=== PATIENT | male | born 1955 | race Caucasian/White ===

== ENCOUNTER 2016-08-20 13:25 | Inpatient (IN) | payer OTHER ==
[2016-08-20] MEDS ORDERED: SODIUM CHLORIDE 0.9% 1,000 ML IV STA (13:43)
[2016-08-20] MEDS ORDERED: RX INFO: IV CONTRAST WAS GIVEN 1 EACH MISC MISCELLANE PRN (13:46)
--- NOTE | 2016-08-20 13:56 | ED ---
Chest Pain HPI - General Chief Complaint: Chest Pain Stated Complaint: knee & chest pain Time Seen by Provider: 08/20/16 13:32 Source: patient, RN notes reviewed Mode of arrival: wheelchair Limitations: physical limitation - History of Present Illness Initial Comments: This is a 61-year-old male with a history of a left knee replacement in mid July who states he was discharged on 19 was a going through physical therapy but had onset this morning of left leg pain does seem to radiate up into his chest to his back across his shoulders. He states the pain was mild to moderate sharp in nature he denied any overt fevers chills sweats or shortness of breath however. He is on Coumadin currently he states 3 days ago his Coumadin dosage was elevated. He denies any other complaints other than that stated above MD Complaint: chest pain - Related Data Home Medications Medication Instructions Recorded Confirmed Atenolol [Tenormin] 25 mg PO DAILY 05/31/16 08/20/16 Aspirin 81 mg PO ONCE PRN 08/20/16 08/20/16 Atenolol [Tenormin] 50 mg PO DAILY 08/20/16 08/20/16 Multivitamins, Thera [Multivitamin] 1 tab PO DAILY@1200 08/20/16 08/20/16 Warfarin [Coumadin] 5 mg PO HS 08/20/16 08/20/16 Previous Rx's Medication Instructions Recorded Sennosides-Docusate Sodium 1 tab PO BID #60 tablet 07/29/16 [Senokot-S] HYDROcodone/APAP 7.5-325MG [[place] 1 - 2 tab PO Q4-6H PRN #90 tab 08/01/16 7.5-325] Allergies Allergy/AdvReac Type Severity Reaction Status Date / Time No Known Allergies Allergy Verified 08/20/16 13:55 Review of Systems ROS Statement: Those systems with pertinent positive or pertinent negative responses have been documented in the HPI. ROS Other: All systems not noted in ROS Statement are negative. EKG Findings - EKG Results: EKG: interpreted by LUANA (EKG shows a sinus bradycardia with a rate of 57 a [place] interval of 174 QRS duration 92 QT/QTC of 424/412 old inferior changes no acute ST elevation or depressions.) Past Medical History Past Medical History: Hypertension, Osteoarthritis (OA) Additional Past Medical History / Comment(s): hx hiatal hernia,torn acl lt knee History of Any Multi-Drug Resistant Organisms: None Reported Past Surgical History: Orthopedic Surgery Additional Past Surgical History / Comment(s): 2 lt knee arthroscopy,rt knee arthroscopy,rt ankle,OR 5th digit lt hand,sinus Past Anesthesia/Blood Transfusion Reactions: No Reported Reaction Additional Past Anesthesia/Blood Transfusion Reaction / Comment(s): no hx blood transfusion Past Psychological History: No Psychological Hx Reported Smoking Status: Former smoker Past Alcohol Use History: None Reported Additional Past Alcohol Use History / Comment(s): quit smoking 1993,smoked 20 yrs 1ppd Past Drug Use History: None Reported - Past Family History Father Family Medical History: Cancer Additional Family Medical History / Comment(s): prostate ca,pacemaker Mother Family Medical History: CVA/TIA General Exam - General Exam Comments Initial Comments: Is a well-developed well-nourished awake alert oriented x3 male Limitations: physical limitation General appearance: alert, in no apparent distress Head exam: Present: atraumatic, normocephalic, normal inspection Eye exam: Present: normal appearance, PERRL, EOMI. Absent: scleral icterus, conjunctival injection, periorbital swelling ENT exam: Present: normal exam, mucous membranes moist Neck exam: Present: normal inspection. Absent: tenderness, meningismus, lymphadenopathy Respiratory exam: Present: normal lung sounds bilaterally, chest wall tenderness. Absent: respiratory distress, wheezes, rales, rhonchi, stridor Cardiovascular Exam: Present: regular rate, normal rhythm, normal heart sounds. Absent: systolic murmur, diastolic murmur, rubs, gallop, clicks GI/Abdominal exam: Present: soft, normal bowel sounds. Absent: distended, tenderness, guarding, rebound, rigid Extremities exam: Present: full ROM, tenderness, normal capillary refill, calf tenderness, other (Tenderness palpation of the left calf with tenderness palpation of the proximal anterior medial thigh and left. No definite palpable cords. Stasis dermatitis bilaterally.). Absent: pedal edema, joint swelling Back exam: Present: normal inspection Neurological exam: Present: alert, oriented X3, CN II-XII intact Psychiatric exam: Present: normal affect, normal mood Skin exam: Present: warm, dry, intact, normal color. Absent: rash Course Vital Signs 08/20/16 08/20/16 13:28 14:22 Temperature 98.1 F Pulse Rate 60 54 L Respiratory 20 18 Rate Blood Pressure 129/67 137/80 O2 Sat by Pulse 100 98 Oximetry - Reevaluation(s) Reevaluation #1: 08/20/16 16:43 I did discuss the initial findings with the patient he is positive for DVT he does have a small subsegmental pulmonary embolism also. Chest Pain MDM - MDM Review the CAT scan and ultrasound reveal a small pulmonary embolism as well as DVT left lower extremity. Patient will require anticoagulation will be admitted. Patient will be admitted to the hospitalist who the case will be discussed with. Critical Care Time Critical Care Time: Yes Critical Care Time: 31 minutes of critical care time which includes initial assessment with history physical lab and ultrasound a CAT scan. Reevaluation the patient on several occasions. Discussion with patient regarding findings discussed with the admitting physician. Review of old charting. Documentation above and admission orders. Disposition Clinical Impression: Pulmonary embolism, Deep vein thrombosis (DVT), Atypical chest pain Disposition: ADMITTED IP TO THIS HOSP Condition: Stable
[2016-08-20 14:40] LABS: Basophils # (A) 0.1 k/uL (0-0.2); Basophils % (A) 2 %; CHCM 34.1; Eosinophils # (A) 0.1 k/uL (0-0.7); Eosinophils % (A) 4 %; HCT 42.3 % (39.0-53.0); HDW 2.82; HGB 13.7 gm/dL (13.0-17.5); Luc # (Auto) 0.09; Luc % (Auto) 2; Lymphocytes # (A) 1.1 k/uL (1.0-4.8); Lymphocytes % (A) 30 %; MCH 29.5 pg (25.0-35.0); MCHC 32.3 g/dL (31.0-37.0); MCV 91.3 fL (80.0-100.0); Mean Platelet Volume 7.3; Monocytes # (A) 0.3 k/uL (0-1.0); Monocytes % (A) 8 %; Neutrophils % (A) 55 %; RBC 4.64 m/uL (4.30-5.90); WBC 3.7 k/uL (3.8-10.6); WBC (Perox) 3.79
[2016-08-20 14:41] LABS: ALT 55 U/L (21-72); AST 27 U/L (17-59); Alkaline Phosphatase 77 U/L (38-126); Anion Gap 9 mmol/L; Blood Urea Nitrogen 12 mg/dL (9-20); Calcium 9.3 mg/dL (8.4-10.2); Carbon Dioxide 28 mmol/L (22-30); Chloride 101 mmol/L (98-107); Glucose 98 mg/dL (74-99); Magnesium 2.1 mg/dL (1.6-2.3); Non-African American GFR(MDRD) >60 (>60 ml/min/1.73 sqM); Potassium 4.3 mmol/L (3.5-5.1); Sodium 138 mmol/L (137-145); Total Bilirubin 0.8 mg/dL (0.2-1.3); Total Protein 6.3 g/dL (6.3-8.2)
[2016-08-20 14:50] LABS: INR 1.3 (<1.1); Partial Thromboplastin Time 26.3 sec (22.0-30.0); Prothrombin Time 12.7 sec (9.0-12.0)
[2016-08-20 14:54] LABS: Creatine Kinase 91 U/L (55-170)
[2016-08-20 15:06] LABS: Creatine Kinase MB 0.8 ng/mL (0.0-2.4); Troponin I <0.012 ng/mL (0.000-0.034)
--- NOTE | 2016-08-20 15:09 | CT ---
EXAMINATION TYPE: CT angio chest DATE OF EXAM: 08/20/2016 2:58 PM COMPARISON: NONE HISTORY: Patient complains of new onset chest pain since increase in coumadin dosage. Patient is 2 w eeks post knee surgery. CT DLP: 411.8 mGycm Automated exposure control for dose reduction was used. CONTRAST: CTA scan of the thorax is performed with IV Contrast, patient injected with 100 mL of Omnipaque 350, pulmonary embolism protocol. MIP images are created and reviewed. 3D reconstructed images are creat ed on an independent workstation and reviewed. FINDINGS: LUNGS: Exam is suboptimal as is degraded by patient respiratory motion artifact. Dependent atelectasi s is seen in both lungs. There is additional mild diffuse atelectatic change and/or edema throughout both lower lobes. There is oval nodule in the left lung base posteriorly measuring 1.9 x 1.0 cm on ax ial image 114 that warrants follow-up. No pleural effusion or pneumothorax is present bilaterally. MEDIASTINUM: There is satisfactory enhancement of the pulmonary artery and its branches, there is christensen btle filling defect in subsegmental branches of left lower lobe seen best on axial image 82 series 4 consistent with small thrombi. No lobar or segmental thrombi is clearly evident bilaterally. There a re no greater than 1 cm hilar or mediastinal lymph nodes. No pericardial effusion is seen. Cardiome ellen is present. OTHER: Small hiatal hernia is seen. There is multilevel spurring in the spine. IMPRESSION: 1. SMALL NONOCCLUSIVE SUBSEGMENTAL THROMBUS LEFT LOWER LOBE IS FELT PRESENT. NO CLINICALLY SIGNIFICAN T LOBAR OR SEGMENTAL PULMONARY EMBOLISM IS CLEARLY SEEN BILATERALLY. 2. THERE IS CARDIOMEGALY WITH SUSPECTED MILD ALVEOLAR EDEMA, CONSIDER CHF EXACERBATION. NO SUSPICIOUS FOCAL INFILTRATE IS NOTED.
--- NOTE | 2016-08-20 15:12 | US ---
EXAMINATION TYPE: US venous doppler duplex LE LT DATE OF EXAM: 08/20/2016 3:02 PM COMPARISON: NONE CLINICAL HISTORY: US. Lt leg pain s/p total knee SIDE PERFORMED: Left VESSELS IMAGED: External Iliac Vein (EIV) Common Femoral Vein Deep Femoral Vein Greater Saphenous Vein * Femoral Vein Popliteal Vein Proximal Calf Veins (* superficial vessels) Left Leg: There is satisfactory color flow, phasicity, and compressibility seen in the distal left e xternal iliac vein, common femoral vein, visualized portion of the deep femoral vein, as well as in t he proximal, mid, distal aspect of the left superficial femoral vein. Satisfactory color flow greater saphenous vein towards left groin is noted. At popliteal vein level there is incomplete compressibility with hyperexpanded hyperechoic material i n lumen and absent color flow this extends to the posterior tibial veins. Findings are consistent wit h acute deep venous thrombosis. An elongated anechoic structure at level of popliteal fossa measuring 5.4 cm is suspicious for modera te-sized popliteal cyst towards end of study. TECHNOLOGIST IMPRESSION: As Above IMPRESSION: Acute DVT in left lower extremity beginning just above the proximal popliteal vein level extending into posterior tibial veins is noted.
[2016-08-20] MEDS ORDERED: NALOXONE 0.4 MG/ML 1 ML VIAL IV PRN (16:45)
[2016-08-20] MEDS ORDERED: ASPIRIN 81 MG CHEW PO PRN (16:46)
[2016-08-20] MEDS ORDERED: HEPARIN SODIUM,PORCINE 5,000 UNIT/ML 1 ML VIAL IV STA (16:48)
[2016-08-20] MEDS: SODIUM CHLORIDE 0.9% 1,000 ML IV SCH (17:19)
[2016-08-20] MEDS: HEPARIN SODIUM,PORCINE/D5W PMX 25,000 UNIT in DEXTROSE/WATER 1 500ML.BAG IV SCH (17:24)
[2016-08-20 18:25] VITALS: BMI 30.7
[2016-08-20] MEDS: HYDROcodone/APAP 7.5-325MG 1 EACH TAB PO PRN ×2 (18:52→22:48)
[2016-08-20] MEDS ORDERED: IPRATROPIUM-ALBUTEROL 3 ML NEB INHALATION PRN (19:01)
[2016-08-20] MEDS ORDERED: IPRATROPIUM-ALBUTEROL 3 ML NEB INHALATION SCH (20:00)
[2016-08-20] MEDS: IPRATROPIUM-ALBUTEROL 3 ML NEB INHALATION SCH (20:59)
[2016-08-20] MEDS: SENNOSIDES-DOCUSATE SODIUM 1 EACH TAB PO SCH (22:09)
[2016-08-20] MEDS ORDERED: HYDROmorphone 1 MG/ML 1 ML SYRINGE IVP PRN (22:25)
[2016-08-20] MEDS ORDERED: ALPRAZolam 0.25 MG TAB PO PRN (22:25)
[2016-08-20] MEDS ORDERED: TEMAZEPAM 15 MG CAP PO PRN (22:25)
[2016-08-21] MEDS: HYDROcodone/APAP 7.5-325MG 1 EACH TAB PO PRN ×6 (03:09→23:27)
[2016-08-21] MEDS: HEPARIN SODIUM,PORCINE/D5W PMX 25,000 UNIT in DEXTROSE/WATER 1 500ML.BAG IV SCH ×2 (05:33→17:03)
[2016-08-21 06:05] LABS: Basophils # (A) 0.1 k/uL (0-0.2); Basophils % (A) 2 %; CH 30.3; CHCM 32.9; Eosinophils # (A) 0.1 k/uL (0-0.7); Eosinophils % (A) 4 %; HCT 41.7 % (39.0-53.0); HDW 2.79; HGB 13.5 gm/dL (13.0-17.5); Luc # (Auto) 0.15; Luc % (Auto) 4; Lymphocytes # (A) 1.4 k/uL (1.0-4.8); Lymphocytes % (A) 41 %; MCH 29.8 pg (25.0-35.0); MCHC 32.2 g/dL (31.0-37.0); MCV 92.4 fL (80.0-100.0); Mean Platelet Volume 6.5; Monocytes # (A) 0.2 k/uL (0-1.0); Monocytes % (A) 5 %; Neutrophils # (A) 1.6 k/uL (1.3-7.7); Neutrophils % (A) 44 %; RBC 4.52 m/uL (4.30-5.90); RDW 13.1 % (11.5-15.5); WBC 3.5 k/uL (3.8-10.6); WBC (Perox) 3.79
[2016-08-21] MEDS: PANTOPRAZOLE 40 MG TABLET PO SCH ×3 (06:27→10:01)
[2016-08-21 06:34] LABS: Anion Gap 9 mmol/L; Blood Urea Nitrogen 13 mg/dL (9-20); Calcium 9.5 mg/dL (8.4-10.2); Carbon Dioxide 28 mmol/L (22-30); Chloride 105 mmol/L (98-107); Glucose 103 mg/dL (74-99); Non-African American GFR(MDRD) >60 (>60 ml/min/1.73 sqM); Sodium 142 mmol/L (137-145)
[2016-08-21] MEDS: IPRATROPIUM-ALBUTEROL 3 ML NEB INHALATION SCH ×4 (08:50→20:32)
--- NOTE | 2016-08-21 09:38 | XR ---
EXAMINATION TYPE: XR chest 1V portable DATE OF EXAM: 08/21/2016 9:24 AM CLINICAL HISTORY: Difficulty breathing progress study. Admitted for pulmonary embolism TECHNIQUE: Single AP portable upright view of the chest is obtained. COMPARISON: CTA chest from one day earlier FINDINGS: Basilar groundglass opacities on CT are less well seen on plain film. There is no suspicio us focal airspace opacity, pleural effusion, or pneumothorax seen on plain film. Cardiac silhouette s ize is upper limits of normal. Osseous structures are intact. IMPRESSION: No suspicious acute infiltrate identified.
--- NOTE | 2016-08-21 09:57 | HP ---
DATE OF ADMISSION: 08/20/2016 CHIEF COMPLAINT: as well as shortness of breath and chest pain. HISTORY OF PRESENT ILLNESS: This 61-year-old gentleman with a past medical history of multiple medical problems has recently underwent left total knee arthroplasty. The patient went home. The patient also had a history of degenerative joint disease, hiatal hernia, history of nicotine dependence also. The patient has been followed by Dr. Lin in the outpatient setting. There is no history of fever, rigors or chills. No history of headache, loss of consciousness or seizures. The patient today apparently experienced left leg pain, which is radiating to the chest, upwards and also the patient had chest pain in the upper part radiating into the shoulders, the patient also had shortness of breath. There is no chills or fever. The patient came to [facility] and was admitted for further evaluation and treatment. On admission, chest CT was done which showed evidence of small and non- subsegmental thrombus in the left lower lobe as well as cardiomegaly with some suspected alveolar edema. The venous Doppler of the left leg showed acute DVT in the left lower leg beginning just above the proximal popliteal and ending in the posterior tibial veins. There is no history of fever, rigors or chills. There is no history of headache, loss of consciousness or seizures. PAST MEDICAL HISTORY: History of recent knee joint surgery, history of hypertension, history of DJD, hiatal hernia, history of nicotine dependence, remotely. Medications prior to admission include: Home medications include: 2. Senokot-S one tablets p.o. b.i.d. 3. Multivitamins one p.o. daily. 4. [place] 7.5, 1 to 2 tabs q.6h, p.r.n. 5. Tenormin 50 mg daily and 25 mg daily. 6. Aspirin 81 mg daily. ALLERGIES: None. FAMILY HISTORY: History of cancer, prostate cancer and pacemaker in the family. SOCIAL HISTORY: Previous history. No history of alcohol. No history of current smoking. REVIEW OF SYSTEMS: HEENT: No diminished vision or diminished hearing. CARDIOVASCULAR: S1, S2 muffled. RESPIRATORY: As mentioned earlier. GASTROINTESTINAL: No nausea or vomiting. GENITOURINARY: No dysuria. CENTRAL NERVOUS SYSTEM: No numbness, weakness. ALLERGIES/IMMUNOLOGY: No asthma or hayfever. HEMATOLOGY/ONCOLOGY: No history of anemia. MUSCULOSKELETAL: As mentioned earlier. ENDOCRINE: As mentioned earlier. CONSTITUTIONAL: As mentioned earlier. DERMATOLOGY: Negative. RHEUMATOLOGY: Negative. PSYCHIATRY: As mentioned earlier. PHYSICAL EXAMINATION: The patient is alert and oriented times three. VITAL SIGNS: Pulse 65, blood pressure 128/64, respirations 18, temperature 96 degrees, pulse ox 97% on room air. HEENT: Conjunctivae normal. NECK: No jugular venous distention. CARDIOVASCULAR: S1, S2 muffled. RESPIRATORY: Breath sounds diminished at the bases. A few scattered rhonchi and crackles. ABDOMEN: Soft, nontender. No mass palpable. LEGS: Status post left knee arthroplasty. Otherwise significant swelling in the left leg. Nervous system: Higher function as mentioned. Moves all 4 limbs. No focal motor or sensory deficits. LYMPHATICS: No lymph nodes palpable in the neck, axillae or groin. SKIN: No ulcer, rashes or bleeding. LABS: WBC 3.7, d-dimer is 5.5. PT is 12.7, INR 1.3. The Coumadin was found to be therapeutic in this patient. ASSESSMENT: 1. Deep venous thrombosis of the left leg with pulmonary embolism of the left lower lobe, acute. 2. History of recent left knee arthroplasty. 3. Hypertension. 4. History of hiatal hernia. 5. History of degenerative joint disease. 6. Remote history of nicotine dependence. RECOMMENDATIONS AND DISCUSSION: In this 61-year-old gentleman who presented with multiple complex medical issues, we will monitor the patient closely. Continue the current medications, continue symptomatic treatment. We will initiate IV heparin currently and we will seek coverage for any anticoagulant agents. Otherwise, continue monitor the patient closely with hematology/oncology and as well as orthopedic surgery. Dr. Brown will be consulted and symptomatic treatment will also be provided. Repeat labs will be ordered. Prognosis guarded because of multiple complex medical issues. Further recommendations to follow. A copy of dictation forwarded to Dr. Lin who is the primary care physician. MICHAEL
[2016-08-21] MEDS: ATENOLOL 50 MG TAB PO SCH (09:58)
[2016-08-21] MEDS: MULTIVITAMINS, THERA 1 EACH TAB PO SCH (09:59)
--- NOTE | 2016-08-21 10:41 | P.CNOR ---
History of Present Illness - HPI Consult date: 08/21/16 History of present illness: This is a pleasant 61-year-old gentleman who is a patient of Dr. Escotos. The patient is status post left total knee arthroplasty on 08/01/2017. The patient' s procedure was performed without complications or sequelae. The patient has been progressing with physical therapy postoperatively. He has been on Coumadin for anticoagulation therapy. He states on Monday his Coumadin dose was increased to 5 mg daily. On Monday he developed left leg pain behind his knee. He also experienced chest pain was radiating to his shoulders. He subsequently presented to the emergency department at [facility] or venous Doppler revealed left lower extremity DVT. Computed tomography scan of the chest was obtained as well revealing evidence of small nonocclusive subsegmental thrombus in the left lower lobe as well. The patient was subsequently admitted to Dr. Dill's service Review of Systems See [facility]. The patient denies any history of DVT. Past Medical History Past Medical History: Hypertension, Osteoarthritis (OA) Additional Past Medical History / Comment(s): hx hiatal hernia,torn acl lt knee History of Any Multi-Drug Resistant Organisms: None Reported Past Surgical History: Orthopedic Surgery Additional Past Surgical History / Comment(s): 2 lt knee arthroscopy,rt knee arthroscopy,rt ankle,OR 5th digit lt hand,sinus, left knee replacement 07/29/16 Past Anesthesia/Blood Transfusion Reactions: No Reported Reaction Additional Past Anesthesia/Blood Transfusion Reaction / Comm: no hx blood transfusion Past Psychological History: No Psychological Hx Reported Smoking Status: Former smoker Past Alcohol Use History: None Reported Additional Past Alcohol Use History / Comment(s): quit smoking 1993,smoked 20 yrs 1ppd Past Drug Use History: None Reported - Past Family History Father Family Medical History: Cancer Additional Family Medical History / Comment(s): prostate ca,pacemaker Mother Family Medical History: CVA/TIA Medications and Allergies Home Medications Medication Instructions Recorded Confirmed Type Atenolol [Tenormin] 25 mg PO DAILY 05/31/16 08/20/16 History Aspirin 81 mg PO ONCE PRN 08/20/16 08/20/16 History Atenolol [Tenormin] 50 mg PO DAILY 08/20/16 08/20/16 History Multivitamins, Thera [Multivitamin] 1 tab PO DAILY@1200 08/20/16 08/20/16 History Warfarin [Coumadin] 5 mg PO HS 08/20/16 08/20/16 History Allergies Allergy/AdvReac Type Severity Reaction Status Date / Time No Known Allergies Allergy Verified 08/20/16 13:55 Physical Examination On examination the patient does not appear in acute distress. He is alert and orientated 3. Head normal cephalic atraumatic. Neck is supple. Breathing appears nonlabored. Incision over the left knee appears well healing with no signs of erythema or drainage. He does have postoperative soft tissue swelling about the knee. Calf is soft and somewhat swollen. He has mild pain to palpation about the calf and posterior thigh. He has sustained wrist flexion, plantar flexion extensor hallux longus. There is a well-demarcated area of erythema over the medial aspect of his ankle for which she states he's been on Keflex and finished the course on Monday. Sensation and circulatory status is intact. Results The results of the patient's CT of his chest and Doppler ultrasound are reviewed - Labs Labs: Abnormal Lab Results - Last 24 Hours (Table) 08/20/16 08/21/16 08/21/16 Range/Units 23:32 05:52 05:52 WBC 3.5 L (3.8-10.6) k/uL APTT 110.8 H* (22.0-30.0) sec Glucose 103 H (74-99) mg/dL 08/21/16 Range/Units 05:52 WBC (3.8-10.6) k/uL APTT 64.4 H (22.0-30.0) sec Glucose (74-99) mg/dL H & H 08/21/16 Range/Units 05:52 Hgb 13.5 (13.0-17.5) gm/dL Hct 41.7 (39.0-53.0) % Result Diagrams: 08/21/16 05:52 08/21/16 05:52 Assessment and Plan (1) Deep vein thrombosis (DVT) Status: Acute (2) Pulmonary embolism Status: Acute (3) Status post total left knee replacement Status: Acute Plan: Continue with anti-coagulation as directed by medicine. I will notify Dr. Brown the patient's current admission. Continue with pain control. He may continue physical therapy if okay with medicine. We'll follow patient closely along with you.
[2016-08-21] MEDS: SENNOSIDES-DOCUSATE SODIUM 1 EACH TAB PO SCH ×2 (15:11→19:31)
--- NOTE | 2016-08-21 17:51 | CONS ---
DATE OF CONSULTATION: 08/21/2016 REASON FOR CONSULTATION: Pulmonary embolus. CHIEF COMPLAINT: Left knee pain. Clif is a very pleasant 61-year-old gentleman who underwent a left total knee arthroplasty on 08/01/2016, he was put on oral warfarin postoperatively; however, his INR has been subtherapeutic; however, a couple days prior to this hospital presentation, his INR was 1.2 and warfarin dose was increased; however, he presented to the hospital with worsening swelling in his left leg and he had a venous Doppler which revealed left lower extremity deep venous thrombosis just above the popliteal vein and he had a spiral CT scan of his chest which revealed nonocclusive subsegmental thrombus in the left lower lobe as well. The patient ended up being admitted to the hospital and he was started on intravenous heparin. Other than the swollen left leg and pain in the left knee, otherwise he feels fine. He denies any shortness of breath, chest pain, fever or chills. Appetite is well. No weight loss. No melena, hematochezia, hematochezia, hematuria, hemoptysis, hematemesis or epistaxis. There is no prior personal history of deep venous thrombosis or pulmonary emboli. Family history of negative for deep venous thrombosis or pulmonary emboli. His mother had strokes. His past medical history has history of hypertension, osteoarthritis. He has a hiatal hernia in the past and torn ACL of the left knee and left knee and as stated had left knee arthroplasty. He had a previous right knee arthroscopy and right ankle surgery and he had surgery on his left hand in the past. SMOKING HISTORY: He smoked for 20 years. He quit in 1991. No alcohol abuse or substance abuse. REVIEW OF SYSTEMS: As stated above in the history of present illness, otherwise negative. Medication and allergies are reviewed in his electronic medical record. On physical examination, he is alert, oriented x3. He does not appear to be in acute distress. Well-developed, well-nourished. His vital signs are temperature 97.3, afebrile, pulse is 67, regular, respiration 18, blood pressure 124/94. HEENT: Normocephalic, atraumatic. No obvious icterus. NECK: Supple. No jugular venous distention. CHEST: Equal expansion bilaterally. Lungs are clear to auscultation and percussion. HEART: Regular rate and rhythm. Abdomen is soft. No apparent organomegaly or masses. Bowel sounds present. No ascites. EXTREMITIES: Swelling in the left knee and some swelling in his left calf, feet are warm. SKIN: No bruises, ecchymosis or petechia. LYMPHATICS: No peripheral vascularity, supraclavicular lymphadenopathy. MUSCULOSKELETAL: Moving all extremities appropriately. No percussion, tenderness to external spine or sternum. LABORATORY DATA: WBC is 3.5, hemoglobin 13.5, hematocrit 41.7, platelets 240. His INR upon admission yesterday was 1.3. Sodium 138, potassium 4.3, chloride 101, CO2 is 28. BUN is 12, creatinine 0.8, LFT and alkaline phosphatase are within normal limits. IMPRESSION: Left lower extremity deep venous thrombosis and pulmonary emboli. This is a complication from recent left knee surgery as stated above. No prior personal or family history of deep venous thrombosis. Although the patient was on warfarin post operatively, but his INR has been sub therapeutic. RECOMMENDATION: 1. The patient will require 3 months of anticoagulation. 2. The patient may use one of the NOAC either Xarelto or Eliquis for a total of 3 months duration. 3. He could be switched to that either today and or tomorrow and discharged home. 4. No need for hypercoagulability work-up based on the above clinical scenario and medical history. The above was discussed in detail with the patient. I have answered all his questions to his satisfaction. Thank you very much for asking me to participate in the care of this nice gentleman.
[2016-08-21] MEDS: SODIUM CHLORIDE 0.9% 1,000 ML IV SCH (18:57)
[2016-08-21] MEDS: FUROSEMIDE 10 MG/ML 4 ML VIAL IV SCH (19:25)
[2016-08-21] MEDS: POTASSIUM CHLORIDE ER 20 MEQ TAB.ER PO SCH (19:25)
[2016-08-22] MEDS: HYDROcodone/APAP 7.5-325MG 1 EACH TAB PO PRN ×3 (03:30→12:05)
[2016-08-22] MEDS: HEPARIN SODIUM,PORCINE/D5W PMX 25,000 UNIT in DEXTROSE/WATER 1 500ML.BAG IV SCH (05:02)
[2016-08-22 07:22] LABS: Basophils # (A) 0.1 k/uL (0-0.2); Basophils % (A) 1 %; CH 30.5; CHCM 33.3; Eosinophils # (A) 0.2 k/uL (0-0.7); Eosinophils % (A) 4 %; HCT 42.9 % (39.0-53.0); HDW 2.76; HGB 13.9 gm/dL (13.0-17.5); Luc # (Auto) 0.06; Luc % (Auto) 2; Lymphocytes # (A) 1.5 k/uL (1.0-4.8); Lymphocytes % (A) 41 %; MCH 29.9 pg (25.0-35.0); MCHC 32.4 g/dL (31.0-37.0); Mean Platelet Volume 7.2; Monocytes # (A) 0.2 k/uL (0-1.0); Monocytes % (A) 5 %; Neutrophils # (A) 1.8 k/uL (1.3-7.7); Neutrophils % (A) 47 %; RBC 4.66 m/uL (4.30-5.90); RDW 13.2 % (11.5-15.5); WBC 3.8 k/uL (3.8-10.6); WBC (Perox) 3.72
[2016-08-22] MEDS: IPRATROPIUM-ALBUTEROL 3 ML NEB INHALATION SCH ×2 (07:30→12:35)
[2016-08-22 07:48] VITALS: RESP 16
[2016-08-22] MEDS: ATENOLOL 50 MG TAB PO SCH (07:56)
[2016-08-22] MEDS: POTASSIUM CHLORIDE ER 20 MEQ TAB.ER PO SCH (07:56)
--- NOTE | 2016-08-22 08:16 | P.PN ---
Subjective Principal diagnosis: Acute DVT left lower extremity. Small pulmonary embolism left lower lobe. Status post total left knee arthroplasty. This is a 61-year-old male who is status post total left knee arthroplasty. He was on Coumadin postoperatively. His dose had just been increased this past week. He is readmitted to [facility] on 08/20/2016 with an acute DVT left lower extremity and a small pulmonary embolism left lower lobe. He began having chest pain and presented to the emergency department. He is stable from orthopedic standpoint today. Her no new complaints or concerns today. Vital signs are stable. Objective - Vital Signs Vital signs: Vital Signs Temp 98.3 F 08/22/16 07:00 Pulse 76 08/22/16 07:48 Resp 16 08/22/16 07:48 BP 143/77 08/22/16 07:00 Pulse Ox 97 08/22/16 07:00 Intake & Output 08/21/16 08/22/16 08/22/16 18:59 06:59 18:59 Intake Total 906.87 922.57 Output Total 2300 Balance -1393.13 922.57 Intake: IV 498.6 Heparin Sodium,Porcine/ 318.6 D5w Pmx 25,000 unit In Dextrose/Water 1 500ml. bag @ 18 UNITS/KG/HR 42. 45 mls/hr IV .[id number] DENNIS Rx#:[id number] Sodium Chloride 0.9% 1, 180 000 ml @ 20 mls/hr IV . Q24H DENNIS Rx#:[id number] Intake, IV Titration 406.87 423.97 Amount Heparin Sodium,Porcine/ 406.87 423.97 D5w Pmx 25,000 unit In Dextrose/Water 1 500ml. bag @ 18 UNITS/KG/HR 42. 45 mls/hr IV .[id number] DENNIS Rx#:[id number] Oral 500 Output: Urine 2300 Other: Voiding Method Urinal Urinal Urinal # Voids 4 - Exam This is a pleasant 61-year-old male in no acute distress. He is alert and oriented 3. Exam of the left knee reveals his incision is healing well. There is no erythema or ecchymosis. There is osso-bu-kfitvosu swelling to the knee and lower leg. He has full foot and ankle motion without difficulty or pain. Pedal pulses +1/4. Sensation is intact to the lower extremity. - Labs CBC & Chem 7: 08/22/16 07:04 08/21/16 05:52 Labs: Abnormal Lab Results - Last 24 Hours (Table) 08/21/16 08/22/16 Range/Units 12:27 07:04 APTT 60.8 H 62.6 H (22.0-30.0) sec Assessment and Plan (1) Deep vein thrombosis (DVT) Status: Acute (2) Pulmonary embolism Status: Acute (3) Status post total left knee replacement Status: Acute Plan: The clinical findings are discussed the patient. We'll defer treatment of the DVT/PE to internal medicine. We will continue to follow.
[2016-08-22 08:31] LABS: Anion Gap 10 mmol/L; Blood Urea Nitrogen 12 mg/dL (9-20); Calcium 9.6 mg/dL (8.4-10.2); Carbon Dioxide 30 mmol/L (22-30); Chloride 102 mmol/L (98-107); Glucose 95 mg/dL (74-99); Non-African American GFR(MDRD) >60 (>60 ml/min/1.73 sqM); Potassium 4.4 mmol/L (3.5-5.1); Sodium 142 mmol/L (137-145)
[2016-08-22] MEDS: FUROSEMIDE 10 MG/ML 4 ML VIAL IV SCH (09:45)
--- NOTE | 2016-08-22 10:57 | PN ---
DATE OF SERVICE: 08/21/2016. This 61-year-old gentleman who was admitted with deep venous thrombosis of the left leg, acute onset of pulmonary embolism of the left lower lobe. The patient is on IV heparin. No chest pain or palpitation. No fever. On exam, alert and oriented x3. Pulse is 59, blood pressure 149/77, respiratory rate 17, oxygen saturation is 97% on room air. HEENT: Neck normal. CARDIAC: S1, S2, respirations reveal a few scattered rhonchi. Abdomen: Soft, nontender. Extremities: noted LABS: PTT noted , otherwise CBC within normal limits. Chest x-ray done today this morning showed no evidence of an acute infiltrate. Increased vascularity. ASSESSMENT: 1. Deep venous thrombosis of the left leg with acute pulmonary embolism left lower lobe, acute. 2. Old congestive heart failure. 3. History of recent left knee arthroplasty, total. 4. Hypertension as mentioned above. 5. Hiatal hernia. 6. History of degenerative joint disease. 7. Remote history of nicotine dependence. 8. Heparin monitoring mild leukopenia. 9. high random blood sugar. 10. Increased d-dimer. 11. RECOMMENDATIONS: This 61-year-old gentleman who presented with multiple complex medical issues. Will monitor the patient closely. Continue the current medications. Continue symptomatic treatment. Otherwise, I would also recommend a 2-D Echocardiogram Doppler and as well as a single dose of Lasix to complete the work-up, a BNP will also be requested to see . REVIEW OF SYSTEMS: CARDIOVASCULAR: As mentioned above. : No dysuria. Nervous system: No numbness or weakness. Current medications are: [place] 7. 5. DuoNeb q.i.d. and p.r.n. Xanax 0.25 t.i.d. Aspirin 81 mg. Tenormin 50 mg daily. Dilaudid 0.5 q.6 p.r.n. Multivitamin. Narcan 0.2 Protonix 40 mg. Lopressor 50 mg q.6 p.r.n. MTDD
[2016-08-22] MEDS: SENNOSIDES-DOCUSATE SODIUM 1 EACH TAB PO SCH (12:02)
[2016-08-22] MEDS: MULTIVITAMINS, THERA 1 EACH TAB PO SCH (12:02)
--- NOTE | 2016-08-22 12:20 | ECHOF ---
Referral Reason:pe MEASUREMENTS -------- HEIGHT: 193.0 cm WEIGHT: 112.5 kg BP: 144/74 RVIDd: 3.7 cm (< 3.3) IVSd: 1.2 cm (0.6 - 1.1) LVIDd: 5.3 cm (3.9 - 5.3) LVPWd: 1.2 cm (0.6 - 1.1) IVSs: 1.8 cm LVIDs: 3.5 cm LVPWs: 1.7 cm LA Diam: 3.5 cm (2.7 - 3.8) Ao Diam: 3.1 cm (2.0 - 3.7) AV Cusp: 2.2 cm (1.5 - 2.6) LA Diam: 3.5 cm (2.7 - 3.8) MV EXCURSION: 14.924 mm (> 18.000) MV EF SLOPE: 74 mm/s (70 - 150) EPSS: 1.0 cm MV E Javi: 0.76 m/s MV DecT: 260 ms MV A Javi: 0.67 m/s MV E/A Ratio: 1.15 RAP: 5.00 mmHg RVSP: 23.00 mmHg FINDINGS -------- Sinus rhythm. This was a technically good study. The left ventricular size is normal. There is borderline concentric left ventricular hypertrophy. Overall left ventricular systolic function is normal with, an EF between 55 - 60 %. The right ventricle is mild to moderately enlarged. The left atrial size is normal. The right atrium is normal in size. There is mild aortic valve sclerosis. Mild mitral annular calcification present. There is trace mitral regurgitation. Mild tricuspid regurgitation present. Right ventricular systolic pressure is normal at < 35 mmHg. The pulmonic valve was not well visualized. The aortic root size is normal. Normal inferior vena cava with normal inspiratory collapse consistent with estimated right atrial pressure of 5 mmHg. There is no pericardial effusion. CONCLUSIONS -------- 1. Sinus rhythm. 2. Mild mitral annular calcification present. 3. There is trace mitral regurgitation. 4. Mild tricuspid regurgitation present. 5. Right ventricular systolic pressure is normal at < 35 mmHg. 6. The pulmonic valve was not well visualized. 7. The aortic root size is normal. 8. There is no pericardial effusion. 9. This was a technically good study. 10. The left ventricular size is normal. 11. There is borderline concentric left ventricular hypertrophy. 12. Overall left ventricular systolic function is normal with, an EF between 55 - 60 %. 13. The right ventricle is mild to moderately enlarged. 14. The left atrial size is normal. 15. The right atrium is normal in size. 16. There is mild aortic valve sclerosis. [employer]ESSING WORKER: Edgar Tesfaye RDCS
[2016-08-22] MEDS ORDERED: RIVAROXABAN 15 MG TAB PO STA (12:36)
--- NOTE | 2016-08-22 13:38 | DS ---
DATE OF ADMISSION: 08/20/2016 DATE OF DISCHARGE: 08/22/2016 FINAL DIAGNOSES: 1. Acute deep venous thrombosis of the left leg with acute pulmonary embolus. left lower lobe, acute. 2. History recent left knee arthroplasty. 3. Hypertension. 4. Hiatal hernia. 5. History of degenerative joint disease. 6. Nicotine dependence. 7. Heparin monitoring. 8. Leukopenia. 9. Increased random. 10. Increased d-dimer discharge. DISCHARGE DISPOSITION: The patient will be discharged in stable condition with guarded prognosis. HISTORY OF PRESENT ILLNESS: This 61-year-old gentleman with a past medical history of multiple medical problems including recent surgery, was admitted with chest pain and features of acute urinary tract infection of left leg and acute pulmonary embolism, left side. The patient was treated and in turn the patient improved significantly. Patient was treated with IV heparin. Hematology/oncology was consulted and no anticoagulations were suggested. A 2-D echo showed ejection fraction 55% to 60% and normal RV systolic pressure. Vitals are stable. CARDIOVASCULAR SYSTEM: S1, S2. RESPIRATORY: Decreased breath sounds at the bases. ABDOMEN: Soft, nontender. NEURO SYSTEM: No focal deficit. DISCHARGE DISPOSITION: DIET: Cardiac. FOLLOW UP: Follow up with Dr. Brown as advised. Follow up with Dr. Lin in 2 to 3 days at the [facility]. Medications are: 1. Tenormin 50 mg p.o. daily. 2. Lasix 40 mg p.o. daily. 3. [place] 7.5 q.4 p.r.n. 4. Albuterol and Atrovent updrafts q.i.d. and p.r.n. 5. Multivitamins 1 p.o. daily. 6. K-Dur 20 mEq p.o. daily. 7. Xarelto 50 mg p.o. b.i.d. for 3 weeks and then 20 mg p.o. daily. 8. Senna 1 tablet p.o. b.i.d. p.r.n. Xarelto for at least [address] Ochoa. HAILEY CYR MD
[2016-08-22 13:46] VITALS: BP 121/61; PULSE 71; TEMP 97.5
== END 2016-08-22 14:41 | disposition home or self-care (01) | DRG 300 ==
LOC: EC 13:25 → 6SEL 16:45 → 3SUR 08-21 16:37
PROVIDERS: ADMIT Hospitalist; ATTEND Hospitalist
DX: T81.718A Complication of other artery following a procedure, not elsewhere classified, initial encounter (principal); I82.402 Acute embolism and thrombosis of unspecified deep veins of left lower extremity; I26.99 Other pulmonary embolism without acute cor pulmonale; I82.449 Acute embolism and thrombosis of unspecified tibial vein; I50.9 Heart failure, unspecified; I11.9 Hypertensive heart disease without heart failure; D72.819 Decreased white blood cell count, unspecified; F17.200 Nicotine dependence, unspecified, uncomplicated; K44.9 Diaphragmatic hernia without obstruction or gangrene; M19.90 Unspecified osteoarthritis, unspecified site; Z79.82 Long term (current) use of aspirin; Y83.8 Other surgical procedures as the cause of abnormal reaction of the patient, or of later complication, without mention of misadventure at the time of the procedure; Z96.652 Presence of left artificial knee joint
CPT/HCPCS: 36415; 71010; 71275; 80048; 80053; 82550; 82553; 83735; 83880; 84484; 85025; 85379; 85610; 85730; 93005; 93306; 94640; 96361; 96365; 96376; 99291

== ENCOUNTER → 2016-08-26 | Outpatient (CLI) | payer MEDICARE, OTHER ==
[2016-08-26 10:56] LABS: Basophils # (A) 0.1 k/uL (0-0.2); Basophils % (A) 1 %; CH 30.3; CHCM 33.5; Eosinophils # (A) 0.2 k/uL (0-0.7); Eosinophils % (A) 4 %; HCT 46.5 % (39.0-53.0); HDW 2.71; HGB 14.9 gm/dL (13.0-17.5); Luc # (Auto) 0.09; Luc % (Auto) 2; Lymphocytes # (A) 1.1 k/uL (1.0-4.8); Lymphocytes % (A) 24 %; MCH 29.1 pg (25.0-35.0); MCHC 32.1 g/dL (31.0-37.0); MCV 90.9 fL (80.0-100.0); Mean Platelet Volume 7.2; Monocytes # (A) 0.4 k/uL (0-1.0); Monocytes % (A) 9 %; Neutrophils # (A) 2.7 k/uL (1.3-7.7); Neutrophils % (A) 60 %; RBC 5.11 m/uL (4.30-5.90); RDW 12.9 % (11.5-15.5); WBC 4.5 k/uL (3.8-10.6); WBC (Perox) 4.43
[2016-08-26 11:00] LABS: Anion Gap 10 mmol/L; Blood Urea Nitrogen 15 mg/dL (9-20); Carbon Dioxide 31 mmol/L (22-30); Chloride 97 mmol/L (98-107); Glucose 90 mg/dL (74-99); Non-African American GFR(MDRD) >60 (>60 ml/min/1.73 sqM); Potassium 4.4 mmol/L (3.5-5.1); Sodium 138 mmol/L (137-145)
== END | disposition home or self-care (01) ==
LOC: LABWHC1 09:39
PROVIDERS: ATTEND Nurse Practitioner
DX: I26.99 Other pulmonary embolism without acute cor pulmonale (principal)
CPT/HCPCS: 36415; 80048; 85025

== ENCOUNTER → 2016-09-06 | Outpatient (CLI) | payer OTHER ==
--- NOTE | 2016-09-06 11:34 | US ---
EXAMINATION TYPE: US venous doppler duplex LE LT DATE OF EXAM: 09/06/2016 11:15 AM COMPARISON: 08/20/2016 CLINICAL HISTORY: LLE Knee Pain M25.562. S/P left total knee with known DVT left leg SIDE PERFORMED: Left VESSELS IMAGED: External Iliac Vein (EIV) Common Femoral Vein Deep Femoral Vein Greater Saphenous Vein * Femoral Vein Popliteal Vein Small Saphenous Vein * Proximal Calf Veins (* superficial vessels) Findings: Left Leg: +DVT left distal popliteal and proximal calf veins of indeterminant age/ proximal and mid popliteal vein improved from previous exam Results called to Dr Brown at time of exam IMPRESSION: 1. Persistent DVT within the left lower extremity which demonstrates mild improvement relative to the previous exam.
== END | disposition home or self-care (01) ==
LOC: RADUSWWP 10:58
PROVIDERS: ATTEND Orthopaedic Surgery
DX: I82.432 Acute embolism and thrombosis of left popliteal vein (principal); I82.4Y2 Acute embolism and thrombosis of unspecified deep veins of left proximal lower extremity; Z96.652 Presence of left artificial knee joint

== ENCOUNTER 2016-09-22 22:34 | Emergency (ER) | payer MEDICARE, OTHER ==
[2016-09-22 22:44] VITALS: TEMP 97.7
[2016-09-22] MEDS ORDERED: SODIUM CHLORIDE 0.9% 1,000 ML IV ONE (23:41)
[2016-09-22] MEDS ORDERED: ONDANSETRON 4 MG/2 ML VIAL IVP STA (23:41)
[2016-09-22] MEDS ORDERED: HYDROmorphone 1 MG/ML 1 ML SYRINGE IVP STA (23:42)
--- NOTE | 2016-09-23 | ED ---
Male Urogenital HPI - General Chief complaint: Urogenital Stated complaint: Blood in Urine Time Seen by Provider: 09/22/16 23:00 Source: patient, RN notes reviewed Mode of arrival: ambulatory Limitations: no limitations - History of Present Illness Initial comments: Patient is 61-year-old male presents to the emergency room for evaluation of hematuria. Patient states ever since he had his knee replacement surgery back in July he's been having on and off sharp pain in his left flank and left lower quadrant. Patient states a few hours ago began having increasing pain in his left lower quadrant along with nausea. Patient states he went to urinate and noticed bright red blood in his urine. Patient states this never happened to him before. Patient does state he has a history of kidney stones and this does feel similar to kidney stones. Patient also states he's been on Xarelto for the past 30 days due to a DVT from his knee replacement. Patient states currently having 4 out of 10 constant pain in his left flank and left lower quadrant. Patient denies any pain or burning during urination or trouble urinating. Patient has chest pain, shortness of breath, fevers, chills, vomiting. Patient states he still feeling nauseous. Patient denies any other specific complaints at this time. - Related Data Home Medications Medication Instructions Recorded Confirmed Atenolol [Tenormin] 50 mg PO DAILY 08/20/16 09/22/16 Multivitamins, Thera [Multivitamin] 1 tab PO DAILY@1200 08/20/16 09/22/16 Sennosides-Docusate Sodium 1 tab PO BID PRN 09/22/16 09/22/16 [Senokot-S] Previous Rx's Medication Instructions Recorded HYDROcodone/APAP 7.5-325MG [[place] 1 - 2 tab PO Q4-6H PRN #90 tab 08/01/16 7.5-325] Furosemide [Lasix] 40 mg PO DAILY #30 tablet 08/22/16 Potassium Chloride ER [K-Dur 20] 20 meq PO DAILY #30 tab.er.prt 08/22/16 Rivaroxaban [Xarelto] 20 mg PO DAILY #30 tab 08/22/16 Ondansetron Odt [Zofran Odt] 4 mg PO Q8HR PRN #12 tab 09/23/16 Tamsulosin HCl [Flomax] 0.4 mg PO DAILY #10 cap.er.24h 09/23/16 Allergies Allergy/AdvReac Type Severity Reaction Status Date / Time No Known Allergies Allergy Verified 09/22/16 23:03 Review of Systems ROS Statement: Those systems with pertinent positive or pertinent negative responses have been documented in the HPI. ROS Other: All systems not noted in ROS Statement are negative. Past Medical History Past Medical History: Deep Vein Thrombosis (DVT), Hypertension, Osteoarthritis ( OA) Additional Past Medical History / Comment(s): hx hiatal hernia,torn acl lt knee History of Any Multi-Drug Resistant Organisms: None Reported Past Surgical History: Orthopedic Surgery Additional Past Surgical History / Comment(s): 2 lt knee arthroscopy,rt knee arthroscopy,rt ankle,OR 5th digit lt hand,sinus, left knee replacement 07/29/16 Past Anesthesia/Blood Transfusion Reactions: No Reported Reaction Additional Past Anesthesia/Blood Transfusion Reaction / Comment(s): no hx blood transfusion Past Psychological History: No Psychological Hx Reported Smoking Status: Former smoker Past Alcohol Use History: None Reported Additional Past Alcohol Use History / Comment(s): quit smoking 1993,smoked 20 yrs 1ppd Past Drug Use History: None Reported - Past Family History Father Family Medical History: Cancer Additional Family Medical History / Comment(s): prostate ca,pacemaker Mother Family Medical History: CVA/TIA General Exam - General Exam Comments Initial Comments: Sitting in exam room, no acute distress. Limitations: no limitations General appearance: alert, in no apparent distress Head exam: Present: atraumatic, normocephalic, normal inspection Eye exam: Present: normal appearance ENT exam: Present: normal exam Neck exam: Present: normal inspection Respiratory exam: Present: normal lung sounds bilaterally. Absent: respiratory distress Cardiovascular Exam: Present: regular rate, normal rhythm, normal heart sounds GI/Abdominal exam: Present: soft, tenderness (LLQ), normal bowel sounds. Absent : distended, guarding, rebound, rigid Extremities exam: Present: normal inspection Back exam: Present: normal inspection, CVA tenderness (L). Absent: CVA tenderness (R) Neurological exam: Present: alert, oriented X3, CN II-XII intact, normal gait Psychiatric exam: Present: normal affect, normal mood Skin exam: Present: warm, dry, intact, normal color. Absent: rash Course Vital Signs 09/22/16 09/23/16 22:41 01:43 Temperature 97.7 F Pulse Rate 89 75 Respiratory 20 18 Rate Blood Pressure 177/79 138/74 O2 Sat by Pulse 99 97 Oximetry Medical Decision Making - Medical Decision Making Patient is a 61-year-old male presents emergency room for evaluation of left- sided flank pain and hematuria. Patient states he's feeling better after medications given. CT abdomen/pelvis significant for stone in right ureter. Patient denies any pain in the right side. Patient states his pain is starting to subside on the left side. Patient states he urinated again and there is not as much blood in his urine this time. Patient states he has pain medications at home. Will send patient home with Flomax and Zofran and advised to follow- up with urologist. Patient states he understands everything that was discussed with him. Return parameters discussed. Case discussed with Dr. Suárez. - Lab Data Result diagrams: 09/23/16 00:25 09/23/16 00:25 Lab Results 09/23/16 09/23/16 09/23/16 Range/Units 00:25 00:25 00:25 WBC 5.0 (3.8-10.6) k/uL RBC 4.83 (4.30-5.90) m/uL Hgb 14.4 (13.0-17.5) gm/dL Hct 42.6 (39.0-53.0) % MCV 88.3 (80.0-100.0) fL MCH 29.8 (25.0-35.0) pg MCHC 33.7 (31.0-37.0) g/dL RDW 12.7 (11.5-15.5) % Plt Count 196 (150-450) k/uL Neutrophils % 67 % Lymphocytes % 22 % Monocytes % 7 % Eosinophils % 2 % Basophils % 1 % Neutrophils # 3.4 (1.3-7.7) k/uL Lymphocytes # 1.1 (1.0-4.8) k/uL Monocytes # 0.3 (0-1.0) k/uL Eosinophils # 0.1 (0-0.7) k/uL Basophils # 0.0 (0-0.2) k/uL Sodium 144 (137-145) mmol/L Potassium 3.9 (3.5-5.1) mmol/L Chloride 103 (98-107) mmol/L Carbon Dioxide 29 (22-30) mmol/L Anion Gap 12 mmol/L BUN 14 (9-20) mg/dL Creatinine 0.90 (0.66-1.25) mg/dL Est GFR (MDRD) Af Amer >60 (>60 ml/min/1.73 sqM) Est GFR (MDRD) Non-Af >60 (>60 ml/min/1.73 sqM) Glucose 103 H (74-99) mg/dL Calcium 9.5 (8.4-10.2) mg/dL Total Bilirubin 0.7 (0.2-1.3) mg/dL AST 22 (17-59) U/L ALT 38 (21-72) U/L Alkaline Phosphatase 86 (38-126) U/L Total Protein 6.8 (6.3-8.2) g/dL Albumin 4.2 (3.5-5.0) g/dL Urine Color Red Urine Appearance Clear (Clear) Urine pH 7.5 (5.0-8.0) Ur Specific [place] 1.014 (1.001-1.035) Urine Protein 1+ H (Negative) Urine Glucose (UA) Negative (Negative) Urine Ketones Negative (Negative) Urine Blood Large H (Negative) Urine Nitrate Negative (Negative) Urine Bilirubin Negative (Negative) Urine Urobilinogen <2.0 (<2.0) mg/dL Ur Leukocyte Esterase Trace H (Negative) Urine RBC >182 H (0-5) /hpf - Radiology Data Radiology results: report reviewed, image reviewed Disposition Clinical Impression: Flank pain, Hematuria, Ureteral stone Disposition: HOME SELF-CARE Condition: Good Instructions: Flank Pain (ED), Ureteral Stones (ED) Additional Instructions: Drink plenty of water. Take at home pain medications as needed. Take prescribed medications as directed. Please follow up with primary care provider or urologist in 24-48 hours. If any new symptom arises, symptoms worsen or fever develops, return to ER as soon as possible. Prescriptions: Ondansetron Odt [Zofran Odt] 4 mg PO Q8HR PRN #12 tab PRN Reason: Nausea Tamsulosin HCl [Flomax] 0.4 mg PO DAILY #10 cap.er.24h Referrals: None,Stated [Primary Care Provider] - 1-2 days Kevin Osman MD [STAFF PHYSICIAN] - 1-2 days Time of Disposition: 02:00
[2016-09-23 00:45] LABS: Basophils % (A) 1 %; CH 31.1; CHCM 35.3; Eosinophils # (A) 0.1 k/uL (0-0.7); Eosinophils % (A) 2 %; HCT 42.6 % (39.0-53.0); HDW 2.86; HGB 14.4 gm/dL (13.0-17.5); Luc # (Auto) 0.08; Luc % (Auto) 2; Lymphocytes # (A) 1.1 k/uL (1.0-4.8); Lymphocytes % (A) 22 %; MCH 29.8 pg (25.0-35.0); MCHC 33.7 g/dL (31.0-37.0); MCV 88.3 fL (80.0-100.0); Mean Platelet Volume 7.2; Monocytes # (A) 0.3 k/uL (0-1.0); Monocytes % (A) 7 %; Neutrophils # (A) 3.4 k/uL (1.3-7.7); Neutrophils % (A) 67 %; RBC 4.83 m/uL (4.30-5.90); RDW 12.7 % (11.5-15.5); WBC (Perox) 4.77
--- NOTE | 2016-09-23 00:52 | XR ---
EXAMINATION TYPE: XR KUB DATE OF EXAM: 09/23/2016 12:47 AM COMPARISON: NONE HISTORY: Abdominal pain TECHNIQUE: 2 views FINDINGS: Bowel gas pattern is normal. There is no sign of intestinal obstruction or pneumoperitoneum . Fecal pattern is normal. Lung bases are clear. There are no pathologic calcifications over the kidn eys. There is no evidence of a mass. IMPRESSION: Nonacute abdomen.
[2016-09-23 00:57] LABS: Appearance,Urine Clear (Clear); Bilirubin,Urine Negative (Negative); Glucose,Urine (UA) Negative (Negative); Ketones,Urine Negative (Negative); Leukocyte Esterase,Urine Trace (Negative); Nitrite,Urine Negative (Negative); PH, Urine 7.5 (5.0-8.0); Particle Count 3187; Protein,Urine 1+ (Negative); RBC,Urine >182 /hpf (0-5); Specific Gravity,Urine 1.014 (1.001-1.035); UA Billing (MACRO vs. MICRO) MICRO; Urobilinogen,Urine <2.0 mg/dL (<2.0)
[2016-09-23 01:08] LABS: ALT 38 U/L (21-72); AST 22 U/L (17-59); Alkaline Phosphatase 86 U/L (38-126); Anion Gap 12 mmol/L; Blood Urea Nitrogen 14 mg/dL (9-20); Calcium 9.5 mg/dL (8.4-10.2); Carbon Dioxide 29 mmol/L (22-30); Chloride 103 mmol/L (98-107); Glucose 103 mg/dL (74-99); Non-African American GFR(MDRD) >60 (>60 ml/min/1.73 sqM); Potassium 3.9 mmol/L (3.5-5.1); Sodium 144 mmol/L (137-145); Total Bilirubin 0.7 mg/dL (0.2-1.3); Total Protein 6.8 g/dL (6.3-8.2)
[2016-09-23 01:44] VITALS: BP 138/74; PULSE 75; RESP 18
--- NOTE | 2016-09-23 01:53 | CT ---
EXAMINATION TYPE: CT abdomen pelvis wo con DATE OF EXAM: 09/23/2016 1:37 AM COMPARISON: NONE HISTORY: Left sided abdominal pain; gross hematuria CT DLP: 766.10 mGycm Automated exposure control for dose reduction was used. TECHNIQUE: Helical acquisition of images was performed from the lung bases through the pelvis. FINDINGS: There is mild subsegmental atelectasis at the lung bases. There is a small hiatal hernia. There is no pleural effusion. Liver spleen pancreas gallbladder appear normal. Bile ducts are not dilated. There is no adrenal mass . There is a 2 cm cortical cyst on the upper pole left kidney. There is mild ectasia of the proximal right ureter with a 4 mm calculus in the proximal right ureter. There is no evidence of obstruction o n the left side. Left ureter is not dilated. Appendix appears normal. I see no intestinal wall thickening. There are no dilated loops. There is no ascites. There is no bony destructive process. Bladder distends smoothly. There is no sign of a pelv ic mass. There is no evidence of a calculus within the kidneys. Abdominal aorta is atheromatous. Ther e is no retroperitoneal adenopathy. IMPRESSION: THERE IS A SMALL STONE IN THE PROXIMAL RIGHT URETER WITH VERY MINIMAL RIGHT-SIDED HYDRONEPHROSIS. NO EVIDENCE OF OBSTRUCTION ON THE LEFT SIDE. SMALL LEFT RENAL CYST. The calculus is on the opposite side of the symptoms according to the history.
[2016-09-23] MEDS ORDERED: TAMSULOSIN 0.4 MG CAP.ER.24H PO STA (01:55)
== END 2016-09-23 02:09 | disposition home or self-care (01) ==
LOC: EC 22:34
DX: N20.1 Calculus of ureter (principal); I10 Essential (primary) hypertension; Z79.899 Other long term (current) drug therapy; Z79.01 Long term (current) use of anticoagulants; Z87.891 Personal history of nicotine dependence; Z87.442 Personal history of urinary calculi
CPT/HCPCS: 99284; 96374; 96375; 96361; 36415; 80053; 85025; 81001; 74000; 74176; J2405; J1170

== ENCOUNTER → 2016-10-10 | Outpatient (CLI) | payer OTHER ==
--- NOTE | 2016-10-11 09:58 | XR ---
EXAMINATION TYPE: XR KUB DATE OF EXAM: 10/10/2016 4:19 PM COMPARISON: 09/23/2016 HISTORY: Right-sided flank pain TECHNIQUE: One view abdominal series FINDINGS: The osseous structures are intact. The bowel gas pattern is nonspecific. Extensive retained fecal de bris throughout the colon. There is a tiny 2 mm calcification adjacent to the transverse process of L3 on the right. Arthropathy of the hips noted. IMPRESSION: 1. Nonspecific abdomen. There is a tiny 2 mm calcification adjacent to L3 right transverse process w hich may represent a proximal ureteral stone noted by CAT scan.
== END ==
LOC: RADXRMAIN 16:03
PROVIDERS: ATTEND Urology
DX: N20.1 Calculus of ureter (principal)
CPT/HCPCS: 74000

== ENCOUNTER → 2016-11-01 | Outpatient (CLI) | payer OTHER ==
--- NOTE | 2016-11-01 12:52 | XR ---
EXAMINATION TYPE: XR KUB DATE OF EXAM: 11/01/2016 12:44 PM COMPARISON: 10/10/2016, 09/23/2016 HISTORY: Right-sided abdominal pain TECHNIQUE: One view abdominal series FINDINGS: The osseous structures are intact. Diffuse osteopenia noted. There is air throughout large and small bowel loops are nonspecific pattern with extensive retained debris along the left colon. Degenerative change of the spine. Arthropathy of the hips.. IMPRESSION: 1. No definite calcification seen on today's exam.
== END ==
LOC: RADXRMAIN 12:19
PROVIDERS: ATTEND Urology
DX: N20.1 Calculus of ureter (principal)
CPT/HCPCS: 74000

== ENCOUNTER 2016-11-22 11:28 | Emergency (ER) | payer MEDICARE, OTHER ==
[2016-11-22 11:49] VITALS: RESP 18
[2016-11-22] MEDS ORDERED: DICYCLOMINE 10 MG/ML 2 ML AMP IM STA (12:50)
[2016-11-22] MEDS ORDERED: SODIUM CHLORIDE 0.9% 1,000 ML IV STA (12:50)
[2016-11-22] MEDS ORDERED: ONDANSETRON 4 MG/2 ML VIAL IVP STA (12:50)
--- NOTE | 2016-11-22 12:54 | ED ---
General Adult HPI - General Chief complaint: Back Pain/Injury Stated complaint: blood in urine Time Seen by Provider: 11/22/16 12:26 Source: patient, RN notes reviewed Mode of arrival: ambulatory Limitations: no limitations - History of Present Illness Initial comments: 61-year-old male presents emergency Department chief complaint of right lower quadrant abdominal pain. Patient states yesterday he had a meals on wheels meal that did show a pain consult. Patient's concerned that maybe caused his symptoms. Patient states had diarrhea in his right lower quadrant pain. Patient denies any nausea vomiting. Patient states the pain is moderate stabbing in nature with no radiation. Patient states he was concerned due to the pains without that he should be evaluated. Patient states he does chronically have hematuria he did see urology who did a scope and said that everything did appear to be fine. Patient states this pain is new and different anything except for so he has come to be evaluated.Patient denies any recent fever, chills, shortness of breath, chest pain, back pain, nausea vomiting, numbness or tingling, dysuria or hematuria, constipation, headaches or visual changes, or any other current symptoms. - Related Data Home Medications Medication Instructions Recorded Confirmed Multivitamins, Thera [Multivitamin 1 tab PO DAILY 08/20/16 11/22/16 (formulary)] Ascorbic Acid [Vitamin C] 1,000 mg PO DAILY 11/22/16 11/22/16 Eliquis (Unknown Dose) 1 tab PO DIRECTED 11/22/16 11/22/16 HYDROcodone/APAP 5-325MG [[place] 1 tab PO DAILY PRN 11/22/16 11/22/16 5-325] traMADol HCL [Ultram] 100 mg PO BID PRN 11/22/16 11/22/16 Previous Rx's Medication Instructions Recorded Hydrocodone/Acetaminophen [[place] 1 each PO Q6HR PRN #20 tab 11/22/16 5-325] Ketorolac [Toradol] 10 mg PO Q6HR #20 tab 11/22/16 Ondansetron Odt [Zofran ODT] 4 mg PO Q8HR PRN #20 tab 11/22/16 Tamsulosin [Flomax] 0.4 mg PO DAILY #5 cap 11/22/16 Allergies Allergy/AdvReac Type Severity Reaction Status Date / Time No Known Allergies Allergy Verified 11/22/16 11:49 Review of Systems ROS Statement: Those systems with pertinent positive or pertinent negative responses have been documented in the HPI. ROS Other: All systems not noted in ROS Statement are negative. Past Medical History Past Medical History: Deep Vein Thrombosis (DVT), Hypertension, Osteoarthritis ( OA) Additional Past Medical History / Comment(s): hx hiatal hernia,torn acl lt knee , KIDNEY STONES History of Any Multi-Drug Resistant Organisms: None Reported Past Surgical History: Orthopedic Surgery Additional Past Surgical History / Comment(s): 2 lt knee arthroscopy,rt knee arthroscopy,rt ankle,OR 5th digit lt hand,sinus, left knee replacement 07/29/16 Past Anesthesia/Blood Transfusion Reactions: No Reported Reaction Additional Past Anesthesia/Blood Transfusion Reaction / Comment(s): no hx blood transfusion Past Psychological History: No Psychological Hx Reported Smoking Status: Former smoker Past Alcohol Use History: None Reported Additional Past Alcohol Use History / Comment(s): quit smoking 1993,smoked 20 yrs 1ppd Past Drug Use History: None Reported - Past Family History Father Family Medical History: Cancer Additional Family Medical History / Comment(s): prostate ca,pacemaker Mother Family Medical History: CVA/TIA General Exam - General Exam Comments Initial Comments: General: The patient is awake and alert, in no distress, and does not appear acutely ill. Eye: Pupils are equal, round and reactive to light, extra-ocular movements are intact; there is normal conjunctiva bilaterally. No signs of icterus. Ears, nose, mouth and throat: There are moist mucous membranes and no oral lesions. Neck: The neck is supple, there is no tenderness . Cardiovascular: There is a regular rate and rhythm. No murmur, rub or gallop is appreciated. Respiratory: Lungs are clear to auscultation, respirations are non-labored, breath sounds are equal. No wheezes, stridor, rales, or rhonchi. Gastrointestinal: Soft, non-distended, right lower quadrant tenderness of the abdomen without masses or organomegaly noted. There is no rebound or guarding present. No CVA tenderness. Bowel sounds are unremarkable. Back: There is no tenderness to palpation in the midline. There is no obvious deformity. No rashes noted. Musculoskeletal: Normal ROM, no tenderness, There is no pedal edema. There is no calf tenderness or swelling. Sensation intact. Pulses equal bilaterally 2+. Neurological: CN II-XII intact, There are no obvious motor or sensory deficits. Coordination appears grossly intact. Speech is normal. Skin: Skin is warm and dry and no rashes or lesions are noted. Psychiatric: Cooperative, appropriate mood & affect, normal judgment. Limitations: no limitations Course Vital Signs 11/22/16 11:44 Temperature 97.9 F Pulse Rate 77 Respiratory 18 Rate Blood Pressure 156/72 O2 Sat by Pulse 99 Oximetry Medical Decision Making - Medical Decision Making 61-year-old male presents emergency Department chief complaint of abdominal pain and diarrhea. The patient does appear to have a 3 mm calculus. This time we discussed follow-up with urology. We discussed other medications. We discussed return parameters and follow-up. Patient stated he understood all questions were answered. He will be discharged home. - Lab Data Result diagrams: 11/22/16 12:57 11/22/16 12:57 Lab Results 11/22/16 11/22/16 11/22/16 Range/Units 12:57 12:57 13:08 WBC 7.6 (3.8-10.6) k/uL RBC 4.53 (4.30-5.90) m/uL Hgb 14.2 (13.0-17.5) gm/dL Hct 40.9 (39.0-53.0) % MCV 90.3 (80.0-100.0) fL MCH 31.4 (25.0-35.0) pg MCHC 34.8 (31.0-37.0) g/dL RDW 13.0 (11.5-15.5) % Plt Count 194 (150-450) k/uL Neutrophils % 81 % Lymphocytes % 12 % Monocytes % 5 % Eosinophils % 1 % Basophils % 1 % Neutrophils # 6.1 (1.3-7.7) k/uL Lymphocytes # 0.9 L (1.0-4.8) k/uL Monocytes # 0.4 (0-1.0) k/uL Eosinophils # 0.1 (0-0.7) k/uL Basophils # 0.0 (0-0.2) k/uL Sodium 139 (137-145) mmol/L Potassium 4.5 (3.5-5.1) mmol/L Chloride 104 (98-107) mmol/L Carbon Dioxide 22 (22-30) mmol/L Anion Gap 13 mmol/L BUN 13 (9-20) mg/dL Creatinine 0.74 (0.66-1.25) mg/dL Est GFR (MDRD) Af Amer >60 (>60 ml/min/1.73 sqM) Est GFR (MDRD) Non-Af >60 (>60 ml/min/1.73 sqM) Glucose 96 (74-99) mg/dL Calcium 9.7 (8.4-10.2) mg/dL Total Bilirubin 1.6 H (0.2-1.3) mg/dL AST 15 L (17-59) U/L ALT 22 (21-72) U/L Alkaline Phosphatase 65 (38-126) U/L Total Protein 7.0 (6.3-8.2) g/dL Albumin 4.4 (3.5-5.0) g/dL Amylase 46 (30-110) U/L Lipase 66 (23-300) U/L Urine Color Light Red Urine Appearance Cloudy (Clear) Urine pH 6.5 (5.0-8.0) Ur Specific [place] 1.012 (1.001-1.035) Urine Protein 1+ H (Negative) Urine Glucose (UA) Negative (Negative) Urine Ketones 1+ H (Negative) Urine Blood Large H (Negative) Urine Nitrite Negative (Negative) Urine Bilirubin Negative (Negative) Urine Urobilinogen <2.0 (<2.0) mg/dL Ur Leukocyte Esterase Negative (Negative) Urine RBC >182 H (0-5) /hpf Urine WBC 39 H (0-5) /hpf Urine Bacteria Rare H (None) /hpf Urine Mucus Rare H (None) /hpf - Radiology Data Radiology results: report reviewed, image reviewed Disposition Clinical Impression: Right ureteral calculus Disposition: HOME SELF-CARE Condition: Stable Instructions: Ureteral Stones (ED) Additional Instructions: Please use medication as discussed. Please follow up with family doctor if symptoms have not improved over the next two days. Please return to the emergency room if your symptoms increase or worsen or for any other concerns. Prescriptions: Hydrocodone/Acetaminophen [[place] 5-325] 1 each PO Q6HR PRN #20 tab PRN Reason: Pain Ketorolac [Toradol] 10 mg PO Q6HR #20 tab Ondansetron Odt [Zofran ODT] 4 mg PO Q8HR PRN #20 tab PRN Reason: Nausea Tamsulosin [Flomax] 0.4 mg PO DAILY #5 cap Referrals: None,Stated [Primary Care Provider] - 1-2 days Daniel Roman MD [STAFF PHYSICIAN] - 1-2 days Time of Disposition: 14:04
[2016-11-22 13:12] LABS: Basophils % (A) 1 %; CH 31.6; CHCM 35.1; Eosinophils # (A) 0.1 k/uL (0-0.7); Eosinophils % (A) 1 %; HCT 40.9 % (39.0-53.0); HDW 2.83; HGB 14.2 gm/dL (13.0-17.5); Luc # (Auto) 0.09; Luc % (Auto) 1; Lymphocytes # (A) 0.9 k/uL (1.0-4.8); Lymphocytes % (A) 12 %; MCH 31.4 pg (25.0-35.0); MCHC 34.8 g/dL (31.0-37.0); MCV 90.3 fL (80.0-100.0); Mean Platelet Volume 6.9; Monocytes # (A) 0.4 k/uL (0-1.0); Monocytes % (A) 5 %; Neutrophils # (A) 6.1 k/uL (1.3-7.7); Neutrophils % (A) 81 %; RBC 4.53 m/uL (4.30-5.90); WBC 7.6 k/uL (3.8-10.6)
[2016-11-22 13:22] LABS: ALT 22 U/L (21-72); AST 15 U/L (17-59); Alkaline Phosphatase 65 U/L (38-126); Amylase 46 U/L (30-110); Anion Gap 13 mmol/L; Blood Urea Nitrogen 13 mg/dL (9-20); Calcium 9.7 mg/dL (8.4-10.2); Carbon Dioxide 22 mmol/L (22-30); Chloride 104 mmol/L (98-107); Glucose 96 mg/dL (74-99); Non-African American GFR(MDRD) >60 (>60 ml/min/1.73 sqM); Potassium 4.5 mmol/L (3.5-5.1); Sodium 139 mmol/L (137-145); Total Bilirubin 1.6 mg/dL (0.2-1.3)
--- NOTE | 2016-11-22 13:23 | CT ---
EXAMINATION TYPE: CT abdomen pelvis wo con DATE OF EXAM: 11/22/2016 1:14 PM COMPARISON: NONE HISTORY: Hematuria with back and Rt flank pain radiating to Rt groin CT DLP: 1209 mGycm FINDINGS: LUNG BASES: No evidence for nodule. No evidence for infiltrate. Mild basilar compressive atelectasis. Small sliding-type hiatal hernia. LIVER/GB: The gallbladder is unremarkable. No space-occupying hepatic lesion. PANCREAS: No pancreatic mass identified. No inflammatory process seen. SPLEEN: No evidence for splenomegaly. No intrasplenic lesions seen. ADRENALS: No adrenal nodules identified. No evidence for thickening. KIDNEYS: 3 mm right ureteral calculus is situated at the level of the pelvic inlet results in mild-to -moderate right-sided hydroureteronephrosis. Mild right renal edema. No additional calculi appreciate d. Nonspecific hypoattenuating left renal lesion measures 1.8 cm. BOWEL: Appendix has a normal appearance. No evidence of bowel obstruction. No inflammatory process. Lymph nodes: No evidence for adenopathy greater than 1 cm. Abdominal aorta: Atheromatous changes seen. No evidence for aneurysm. Genital organs: No significant abnormality. Other: No significant abnormality. IMPRESSION: 3 mm right ureteral calculus is situated at the level of the pelvic inlet results in [id number] right-sided hydroureteronephrosis.
[2016-11-22 13:56] LABS: Appearance,Urine Cloudy (Clear); Bacteria,Urine Rare /hpf; Bilirubin,Urine Negative (Negative); Glucose,Urine (UA) Negative (Negative); Ketones,Urine 1+ (Negative); Leukocyte Esterase,Urine Negative (Negative); Mucus,Urine Rare /hpf; Nitrite,Urine Negative (Negative); PH, Urine 6.5 (5.0-8.0); Particle Count 18773; Protein,Urine 1+ (Negative); RBC,Urine >182 /hpf (0-5); Specific Gravity,Urine 1.012 (1.001-1.035); UA Billing (MACRO vs. MICRO) MICRO; Urobilinogen,Urine <2.0 mg/dL (<2.0); WBC,Urine 39 /hpf (0-5)
[2016-11-22] MEDS ORDERED: TAMSULOSIN 0.4 MG CAP.ER.24H PO STA (14:01)
[2016-11-22] MEDS ORDERED: traMADol 50 MG STARTER PACK 3 TAB BTL PO STA (14:01)
[2016-11-22] MEDS ORDERED: ONDANSETRON 4 MG ODT STARTER PACK 2 TAB BTL PO STA (14:01)
[2016-11-22 14:15] VITALS: BP 175/81; PULSE 73; TEMP 96.8
== END 2016-11-22 14:24 | disposition home or self-care (01) ==
LOC: EC 11:28
DX: N20.1 Calculus of ureter (principal); R19.7 Diarrhea, unspecified; Z86.718 Personal history of other venous thrombosis and embolism; Z79.01 Long term (current) use of anticoagulants; Z87.891 Personal history of nicotine dependence; Z79.899 Other long term (current) drug therapy
CPT/HCPCS: 96361 ×2; 96372 ×2; 96374 ×2; 99284 ×2; 36415; 80053; 82150; 83690; 85025; 81001; 74176; J0500; J2405; S0119

== ENCOUNTER 2017-03-25 14:46 | Emergency (ER) | payer MEDICARE, OTHER ==
[2017-03-25 15:16] VITALS: BP 136/72; PULSE 63; RESP 18; TEMP 96
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
--- NOTE | 2017-03-25 16:03 | XR ---
EXAMINATION TYPE: 3 views right ankle. 3 views right foot. DATE OF EXAM: 03/25/2017 COMPARISON: NONE HISTORY: 61-year-old male with a pain after crushing injury. FINDINGS: Right ankle: Corticated ossific densities below the medial malleolus. Some bony spurring inferior to the lateral m alleolus. There may be a small anterior tibiotalar joint effusion. Minimal marginal spurring at the t ibiotalar joint. Tiny plantar calcaneal spur. There is heterotopic ossification involving the distal Achilles tendon with a associated Achilles tendon thickening. Small plantar calcaneal spur. No acute fracture, subluxation, or dislocation. Right foot: Mild degenerative change at the first MTP joint. No acute fracture, subluxation, or dislocation seen. IMPRESSION: 1. Right ankle: Corticated bone fragment below the medial malleolus suggests sequela of remote injury . There is heterotopic ossification within the distal Achilles tendon with tendon thickening suggesti ng chronic tendinopathy. If there is focal pain related to the patient's injury localizing here, MRI can further evaluate for any potential partial tear. 2. Right foot: Mild first MTP joint osteoarthrosis. No acute osseous abnormality seen.
== END 2017-03-25 16:26 | disposition home or self-care (01) ==
LOC: EC 14:46
DX: S93.601A Unspecified sprain of right foot, initial encounter (principal); M25.571 Pain in right ankle and joints of right foot; Z96.652 Presence of left artificial knee joint; Z87.891 Personal history of nicotine dependence; Z98.890 Other specified postprocedural states; Z88.8 Allergy status to other drugs, medicaments and biological substances; X50.0XXA Overexertion from strenuous movement or load, initial encounter; Y93.89 Activity, other specified; Y99.0 Civilian activity done for income or pay; Y92.69 Other specified industrial and construction area as the place of occurrence of the external cause
CPT/HCPCS: 99283

== ENCOUNTER → 2017-04-11 | Outpatient (CLI) | payer OTHER ==
--- NOTE | 2017-04-11 23:04 | MR ---
EXAMINATION TYPE: MR foot RT wo con DATE OF EXAM: 04/11/2017 COMPARISON: NONE HISTORY: Pain and Swelling Right Foot and Ankle Standard multiplanar, multisequence MRI departmental protocol Multiplanar, multisequence images of the right foot were acquired. FINDINGS: There is increased fluid signal in the subcutaneous tissues of the forefoot. The metatarsal s are intact. I see no fracture. There is mild spurring at the first MP joint. Plantar fascia appears normal. The Achilles tendon is intact. Medial and lateral flexor tendons of the ankle appear intact. There is mild subcutaneous edema around the ankle joint and more on the medial aspect. IMPRESSION: Subcutaneous edema and soft tissue swelling. No fracture. No evidence of osteomyelitis. Minimal osteo arthritis at the first MP joint.
== END | disposition home or self-care (01) ==
LOC: RADMRIMAIN 21:00
PROVIDERS: ATTEND Emergency Medicine
DX: M19.071 Primary osteoarthritis, right ankle and foot (principal)

== ENCOUNTER 2017-09-11 10:21 | Emergency (ER) | payer MEDICARE, OTHER ==
[2017-09-11 10:40] VITALS: BP 168/86; PULSE 89; RESP 18; TEMP 99.9
[2017-09-11] MEDS ORDERED: KETOROLAC 60 MG/2 ML VIAL IM STA (10:59)
--- NOTE | 2017-09-11 11:01 | ED ---
General Adult HPI - General Chief complaint: Extremity Injury, Lower Stated complaint: RT LEG PAIN,WEAKNESS,INJURY Time Seen by Provider: 09/11/17 10:35 Source: patient, RN notes reviewed Mode of arrival: wheelchair Limitations: no limitations - History of Present Illness Initial comments: this is a 62-year-old male who presents emergency Department complaining of right lateral ankle and right lateral foot pain. Patient states she was walking on the floor when all of a sudden he had sharp pain in his ankle and ever since has been very difficult to walk. Patient states she did not twist his ankle he did not slip. Patient has not noticed any swelling or discoloration. Patient states about 2 months ago he had injured that ankle and had MRI and was told that there was nothing wrong with the foot. Patient denies any knee pain or leg pain. Patient denies any other injury at this time - Related Data Home Medications Medication Instructions Recorded Confirmed traMADol HCL [Ultram] 100 mg PO HS PRN 11/22/16 09/11/17 Apixaban [Eliquis] 5 mg PO BID 09/11/17 09/11/17 Methylsulfonylmethane [MSM] 1,000 mg PO DAILY 09/11/17 09/11/17 Multivitamins, Thera [Multivitamin 1 tab PO DAILY 09/11/17 09/11/17 (formulary)] Allergies Allergy/AdvReac Type Severity Reaction Status Date / Time albuterol AdvReac LEG SPASMS Verified 09/11/17 10:39 apixaban [From Eliquis] AdvReac Headache/Burning Verified 09/11/17 11:11 Sensation All Over rivaroxaban [From Xarelto] AdvReac Headache/Burning Verified 09/11/17 10:39 Sensation All Over Review of Systems ROS Statement: Those systems with pertinent positive or pertinent negative responses have been documented in the HPI. ROS Other: All systems not noted in ROS Statement are negative. Past Medical History Past Medical History: Deep Vein Thrombosis (DVT), Hypertension, Osteoarthritis ( OA) Additional Past Medical History / Comment(s): hx hiatal hernia,torn acl lt knee , KIDNEY STONES History of Any Multi-Drug Resistant Organisms: None Reported Past Surgical History: Joint Replacement, Orthopedic Surgery Additional Past Surgical History / Comment(s): 2 lt knee arthroscopy,rt knee arthroscopy,rt ankle took bone chip out,OR 5th digit lt hand fused bone together had pin in place-since removed.,sinus, left knee replacement 07/29/16 , deviated septum repair. Past Anesthesia/Blood Transfusion Reactions: No Reported Reaction Additional Past Anesthesia/Blood Transfusion Reaction / Comment(s): no hx blood transfusion Past Psychological History: No Psychological Hx Reported Smoking Status: Former smoker Past Alcohol Use History: None Reported Past Drug Use History: None Reported - Past Family History Father Family Medical History: Cancer Additional Family Medical History / Comment(s): prostate ca,pacemaker Mother Family Medical History: CVA/TIA General Exam - General Exam Comments Initial Comments: GENERAL Patient is well-developed and well-nourished. Patient is in mild distress. EYES Patient's pupils are equal and round. Extraocular motion is intact SKIN Unremarkable NEURO The patient is alert and oriented 3 PYSCH Patient has normal interpersonal interactions. MUSCULOSKELETAL patient has some tenderness at the base of the f fifth metatarsalas well as the lateral malleolus Limitations: no limitations Course Vital Signs 09/11/17 10:37 Temperature 99.9 F H Pulse Rate 89 Respiratory 18 Rate Blood Pressure 168/86 O2 Sat by Pulse 98 Oximetry Procedures - Orthopedic Splinting/Casting Injury #1 Side: right Lower Extremity Injury Location: short leg, ankle Medical Decision Making - Medical Decision Making right ankle and foot x-ray showed no acute abnormalities. Patient was unable to ambulate placed but the patient and ordered him some crutches. Patient states she'll [facility]. Disposition Clinical Impression: Foot sprain Disposition: HOME SELF-CARE Instructions: Foot Sprain (ED) Additional Instructions: patient is to follow-up with his orthopedic surgeon. Referrals: Lonnie Lin DO [Primary Care Provider] - 1-2 days Time of Disposition: 11:53
--- NOTE | 2017-09-11 11:52 | XR ---
EXAMINATION TYPE: XR ankle complete RT, XR foot complete RT DATE OF EXAM: 09/11/2017 CLINICAL HISTORY: Right ankle and foot pain today, walking popping injury. TECHNIQUE: Frontal, lateral and oblique images of the right ankle and foot are obtained. COMPARISON: Right foot and ankle x-ray March 25, 2017 FINDINGS: There is no acute fracture/dislocation evident in the right ankle. The ankle mortise appe ars within normal limits. There is redemonstration of large superior calcaneal spur with ossific frag ments along course of distal Achilles tendon and small inferior calcaneal spur unchanged from prior. The overlying soft tissue appears unremarkable. There is no acute fracture or dislocation evident in the right foot. Mild spurring first metatarsopha langeal joint is seen. There is flexion in the distal toes redemonstrated. Overlying soft tissue is unremarkable. IMPRESSION: There is no acute fracture or dislocation in the right ankle or foot. No significant shannon nge from prior studies.
== END 2017-09-11 13:05 | disposition home or self-care (01) ==
LOC: EC 10:21
DX: S93.601A Unspecified sprain of right foot, initial encounter (principal); M19.90 Unspecified osteoarthritis, unspecified site; Z86.718 Personal history of other venous thrombosis and embolism; Z87.891 Personal history of nicotine dependence; Z79.01 Long term (current) use of anticoagulants; Z79.899 Other long term (current) drug therapy; Z88.8 Allergy status to other drugs, medicaments and biological substances; X50.9XXA Other and unspecified overexertion or strenuous movements or postures, initial encounter; Y93.01 Activity, walking, marching and hiking
CPT/HCPCS: 73610; 73630; 99283; 29515; 96372; J1885

== ENCOUNTER → 2017-09-15 | Outpatient (CLI) | payer MEDICARE, OTHER ==
--- NOTE | 2017-09-15 14:42 | US ---
EXAMINATION TYPE: US venous doppler duplex LE BI DATE OF EXAM: 09/15/2017 1:42 PM COMPARISON: US on 05/11/2017 CLINICAL HISTORY: I82.890 Acute Embolism And Thrombosis Of Other. Pain Hx of DVT and PE patient on bl ood thinners. SIDE PERFORMED: Bilateral TECHNIQUE: The lower extremity deep venous system is examined utilizing real time linear array sonog hanny with graded compression, doppler sonography and color-flow sonography. VESSELS IMAGED: External Iliac Vein (EIV) Common Femoral Vein Deep Femoral Vein Greater Saphenous Vein * Femoral Vein Popliteal Vein Small Saphenous Vein * Proximal Calf Veins (* superficial vessels) Right Leg: Negative for DVT There is normal flow, compressibility, vascular waveforms. Left Leg: Small non occluding DVT distal popiteal with good color flow and compression, there appears to be small amount of thrombus against vessel wall. IMPRESSION: 1. Small focal nonocclusive chronic deep venous thrombosis in the left popliteal vein in the region o f prior occlusive thrombosis on the exam of 05/11/2017. 2. Right lower extremity demonstrates no sonographic evidence of deep venous thrombosis.
== END | disposition home or self-care (01) ==
LOC: RADUSWWP 12:55
PROVIDERS: ATTEND Internal Medicine Hematology & Oncology
DX: I82.532 Chronic embolism and thrombosis of left popliteal vein (principal)
CPT/HCPCS: 93970

== ENCOUNTER → 2017-12-11 | Outpatient (CLI) | payer MEDICARE, OTHER ==
--- NOTE | 2017-12-11 11:46 | US ---
EXAMINATION TYPE: US venous doppler duplex LE DATE OF EXAM: 12/11/2017 10:23 AM COMPARISON: US CLINICAL HISTORY: DVT I82.890. SIDE PERFORMED: Bilateral TECHNIQUE: The lower extremity deep venous system is examined utilizing real time linear array sonog hanny with graded compression, doppler sonography and color-flow sonography. VESSELS IMAGED: External Iliac Vein (EIV) Common Femoral Vein Deep Femoral Vein Greater Saphenous Vein * Femoral Vein Popliteal Vein Small Saphenous Vein * Proximal Calf Veins (* superficial vessels) Right Leg: Negative for DVT Left Leg: There appears to be some chronic changes in the distal popliteal v., the vein is small in caliber, but there is flow. Negative for deep venous thrombosis. IMPRESSION: No sonographic evidence of deep venous thrombosis within the bilateral lower extremities. Incidentally the left distal popliteal vein is diminutive in size.
== END ==
LOC: RADUSWWP 09:43
PROVIDERS: ATTEND Internal Medicine Hematology & Oncology
DX: I82.890 Acute embolism and thrombosis of other specified veins (principal)
CPT/HCPCS: 93970

== ENCOUNTER 2019-02-12 00:01 | Observation (INO) | payer MEDICARE, OTHER ==
[2019-02-12 01:04] LABS: Basophils % (A) 1 %; Eosinophils # (A) 0.2 k/uL (0-0.7); Eosinophils % (A) 4 %; HCT 45.3 % (39.0-53.0); HGB 15.1 gm/dL (13.0-17.5); Lymphocytes # (A) 1.5 k/uL (1.0-4.8); Lymphocytes % (A) 28 %; MCH 30.2 pg (25.0-35.0); MCHC 33.4 g/dL (31.0-37.0); MCV 90.3 fL (80.0-100.0); Mean Platelet Volume 6.9; Monocytes # (A) 0.3 k/uL (0-1.0); Monocytes % (A) 6 %; Neutrophils # (A) 3.1 k/uL (1.3-7.7); Neutrophils % (A) 59 %; Platelet Count 213 k/uL (150-450); RBC 5.02 m/uL (4.30-5.90); RDW 12.8 % (11.5-15.5); WBC 5.3 k/uL (3.8-10.6)
[2019-02-12 01:20] LABS: INR 0.9 (<1.2); Partial Thromboplastin Time 24.3 sec (22.0-30.0); Prothrombin Time 10.1 sec (9.0-12.0)
[2019-02-12 01:21] LABS: ALT 25 U/L (21-72); AST 22 U/L (17-59); African American GFR (CKD) >90 (>60 ml/min/1.73 sqM); Albumin 4.4 g/dL (3.5-5.0); Alkaline Phosphatase 77 U/L (38-126); Anion Gap 8 mmol/L; Blood Urea Nitrogen 15 mg/dL (9-20); Calcium 9.4 mg/dL (8.4-10.2); Carbon Dioxide 26 mmol/L (22-30); Chloride 107 mmol/L (98-107); Glucose 100 mg/dL (74-99); Magnesium 2.3 mg/dL (1.6-2.3); Potassium 3.9 mmol/L (3.5-5.1); Sodium 141 mmol/L (137-145); Total Bilirubin 1.2 mg/dL (0.2-1.3); Total Protein 6.9 g/dL (6.3-8.2)
--- NOTE | 2019-02-12 01:47 | XR ---
EXAM: XR Chest, 2 Views CLINICAL HISTORY: ITS.REASON XR Reason: Chest Pain TECHNIQUE: Frontal and lateral views of the chest. COMPARISON: No relevant prior studies available. FINDINGS: Lungs: No consolidation. Pleural space: No pneumothorax. Heart: No cardiomegaly. Mediastinum: Unremarkable. Bones/joints: Degenerative changes. IMPRESSION: No evidence of acute pulmonary disease
[2019-02-12] MEDS ORDERED: traMADol 50 MG TAB PO STA ×2 (02:37→02:52)
--- NOTE | 2019-02-12 03:38 | CT ---
EXAM: CT Head Without Intravenous Contrast CLINICAL HISTORY: Pain. TECHNIQUE: Axial computed tomography images of the head/brain without intravenous contrast. Coronal and sagittal reformations provided. CTDI is 45.2 mGy and DLP is 1036 mGy-cm. This CT exam was performed using one or more of the following dose reduction techniques: automated exposure control, adjustment of the mA and/or kV according to patient size, and/or use of iterative reconstruction technique. COMPARISON: No relevant prior studies available. FINDINGS: Brain: No evidence of acute infarct. No acute intracranial hemorrhage. No edema. Mild atrophy and chronic small vessel ischemic disease. No mass effect or midline shift. Ventricles: Unremarkable for age. No ventriculomegaly. Bones/joints: Unremarkable. No acute fracture. Soft tissues: Unremarkable. Sinuses: Unremarkable as visualized. No acute sinusitis. Mastoid air cells: Unremarkable as visualized. No mastoid effusion. IMPRESSION: No evidence of acute intracranial hemorrhage, skull fracture, or other acute intracranial abnormality. EXAM: CT Cervical Spine Without Intravenous Contrast CLINICAL HISTORY: Pain. TECHNIQUE: Axial computed tomography images of the cervical spine without intravenous contrast. Coronal and sagittal reformations provided. CTDI is 11.4 mGy and DLP is 359.9 mGy-cm. This CT exam was performed using one or more of the following dose reduction techniques: automated exposure control, adjustment of the mA and/or kV according to patient size, and/or use of iterative reconstruction technique. COMPARISON: No relevant prior studies available. FINDINGS: Vertebrae: No acute fracture or traumatic subluxation of the cervical spine. Craniocervical junction is intact. Multilevel degenerative changes are present. Discs/spinal canal/neural foramina: No acute findings. Degenerative changes result in varying degrees of spinal canal or neural foraminal narrowing Soft tissues: Unremarkable as visualized. IMPRESSION: 1. No acute fracture or traumatic subluxation of the cervical spine. 2. Multilevel degenerative changes of the cervical spine.
--- NOTE | 2019-02-12 03:49 | ED ---
General Adult HPI - General Source: patient, RN notes reviewed, old records reviewed Mode of arrival: wheelchair Limitations: no limitations <Mario Moeller - Last Filed: 02/12/19 03:49> <Lexis Li - Last Filed: 02/12/19 05:25> - General Chief complaint: Chest Pain Stated complaint: Chest pain,back pain Time Seen by Provider: 02/12/19 01:10 - History of Present Illness Initial comments: 63-year-old male patient passed no history of prior DVT and pulmonary embolism, not currently on any blood thinners. CDU chief complaint of chest pain. Patient reports that yesterday he began to experience some chest pain all during a dental cleaning. Describes it as a dull ache in her left parasternal region. Patient reportedly also experienced chest pain today prior to presentation to ED where he described a tightness in his chest. Patient denies any overt pain at this time. Patient presents ED to ensure he is not having up a blood clot in his lung. Patient has a secondary complaint that a large fell on his head while he is sleeping. Patient reports that he does have a brass lamp that is on his headboard. Patient reports that patient was that he was awoken with fell hitting his forehead. Denies any loss of consciousness. Denies any current headache or changes in vision. Denies other complaints at this time. Patient denies any pleuritic pain. Patient denies any shortness of breath. Systemic: Pt denies fatigue, fever/chills, rash. Pt denies weakness, night sweats, weight loss. Neuro: Pt denies headache, visual disturbances, syncope or pre-syncope. HEENT: Pt denies ocular discharge or irritation, otalgia, rhinorrhea, pharyngitis or notable lymphadenopathy. Cardiopulmonary: Pt denies SOB, heart palpitations, dyspnea on exertion. Abdominal/GI: Pt denies abdominal pain, n/v/d. : Pt denies dysuria, burning w/ urination, frequency/urgency. Denies new onset urinary or bowel incontinence. MSK: Pt denies myalgia, loss of strength or function in extremities. Neuro: Pt denies new onset weakness, paresthesias. (Mario Moeller) - Related Data Home Medications Medication Instructions Recorded Confirmed traMADol HCL [Ultram] 100 mg PO HS PRN 11/22/16 09/11/17 Apixaban [Eliquis] 5 mg PO BID 09/11/17 09/11/17 Methylsulfonylmethane [MSM] 1,000 mg PO DAILY 09/11/17 09/11/17 Multivitamins, Thera [Multivitamin 1 tab PO DAILY 09/11/17 09/11/17 (formulary)] Allergies Allergy/AdvReac Type Severity Reaction Status Date / Time albuterol AdvReac LEG SPASMS Verified 02/12/19 00:12 apixaban [From Eliquis] AdvReac Headache/Burning Verified 02/12/19 00:12 Sensation All Over rivaroxaban [From Xarelto] AdvReac Headache/Burning Verified 02/12/19 00:12 Sensation All Over Review of Systems ROS Other: All systems not noted in ROS Statement are negative. <Mario Moeller - Last Filed: 02/12/19 03:49> ROS Other: All systems not noted in ROS Statement are negative. <Lexis Li - Last Filed: 02/12/19 05:25> ROS Statement: Those systems with pertinent positive or pertinent negative responses have been documented in the HPI. Past Medical History Past Medical History: Deep Vein Thrombosis (DVT), Hypertension, Osteoarthritis (OA) Additional Past Medical History / Comment(s): hx hiatal hernia,torn acl lt knee, KIDNEY STONES History of Any Multi-Drug Resistant Organisms: None Reported Past Surgical History: Joint Replacement, Orthopedic Surgery Additional Past Surgical History / Comment(s): 2 lt knee arthroscopy,rt knee arthroscopy,rt ankle took bone chip out,OR 5th digit lt hand fused bone together had pin in place-since removed.,sinus, left knee replacement 07/29/16, deviated septum repair. Past Anesthesia/Blood Transfusion Reactions: No Reported Reaction Additional Past Anesthesia/Blood Transfusion Reaction / Comment(s): no hx blood transfusion Past Psychological History: No Psychological Hx Reported Smoking Status: Former smoker Past Alcohol Use History: None Reported Past Drug Use History: None Reported - Past Family History Father Family Medical History: Cancer Additional Family Medical History / Comment(s): prostate ca,pacemaker Mother Family Medical History: CVA/TIA <Mario Moeller - Last Filed: 02/12/19 03:49> General Exam Limitations: no limitations <Mario Moeller - Last Filed: 02/12/19 03:49> - General Exam Comments Initial Comments: Constitutional: NAD, AOX3, Pt has pleasant affect. HEENT: NC/AT, trachea midline, neck supple, no lymphadenopathy. Posterior pharynx non erythematous, without exudates. External ears appear normal, without discharge. Mucous membranes moist. Eyes PERRLA, EOM intact. There is no scleral icterus. No pallor noted. Cardiopulmonary: RRR, no murmurs, rubs or gallops, no JVD noted. Lungs CTAB in anterior and posterior heart. No peripheral edema. Abdominal exam: Abdomen soft and non-distended. Abdomen non-tender to palpation in all 4 quadrants. Bowel sounds active in LLQ. No hepatosplenomegaly. No ecchymosis Neuro: CN II-XII intact. No nuchal rigidity. No raccon eyes, no da silva sign, no hemotympanum. No cervical spinal tenderness. MSK: No posterior calf tenderness bilaterally, homans sign negative bilaterally. Posterior tibialis and radial pulse +2 bilaterally. Sensation intact in upper and lower extremities. Full active ROM in upper and lower extremities, 5/5 stregnth. (Mario Moeller) Course Vital Signs 02/12/19 02/12/19 02/12/19 00:09 01:30 01:43 Temperature 98.5 F Pulse Rate 75 Pulse Rate [ 64 Aircraft Stress Analyst ] Respiratory 18 Rate Blood Pressure 154/89 O2 Sat by Pulse 98 96 Oximetry 02/12/19 02/12/19 02/12/19 02:00 03:49 04:00 Temperature 97.7 F Pulse Rate 60 67 64 Pulse Rate [ Aircraft Stress Analyst ] Respiratory 16 13 17 Rate Blood Pressure 156/90 168/99 168/99 O2 Sat by Pulse 95 98 Oximetry 02/12/19 02/12/19 04:30 05:00 Temperature Pulse Rate 64 63 Pulse Rate [ Aircraft Stress Analyst ] Respiratory 15 16 Rate Blood Pressure 161/92 163/97 O2 Sat by Pulse 96 96 Oximetry Medical Decision Making - Lab Data Result diagrams: 02/12/19 00:47 02/12/19 00:47 - EKG Data -: EKG Interpreted by Me (and Dr. Li) <Mario Moeller - Last Filed: 02/12/19 03:49> - Lab Data Result diagrams: 02/12/19 00:47 02/12/19 00:47 <Lexis Li - Last Filed: 02/12/19 05:25> - Medical Decision Making 63-year-old male patient passed no history of prior DVT and pulmonary embolism, not currently on any blood thinners. CDU chief complaint of chest pain. Patient reports that yesterday he began to experience some chest pain all during a dental cleaning. Describes it as a dull ache in her left parasternal region. Patient reportedly also experienced chest pain today prior to presentation to ED where he described a tightness in his chest. Patient denies any overt pain at this time. Patient presents ED to ensure he is not having up a blood clot in his lung. Patient has a secondary complaint that a large fell on his head while he is sleeping. Patient reports that he does have a brass lamp that is on his headboard. Patient reports that patient was that he was awoken with fell hitting his forehead. Denies any loss of consciousness. Denies any current headache or changes in vision. Denies other complaints at this time. Patient denies any pleuritic pain. Patient denies any shortness of breath. Patient was then stable, afebrile. Physical exam then switched pathology. CBC, CMP non- impressive. D-dimer negative. Troponin negative, BNP 56. EKG not concerning for acute ischemia. CT brain and C-spine, chest did not display acute pathology. Patient will be admitted for serial troponins and cardiology c onsultation. Case discussed with Dr. Li. (Mario Moeller) I was available for consultation in the emergency department. The history and physical exam were done by the midlevel provider. I was consulted for this patient's care. I reviewed the case with the midlevel provider and based on their presentation of the patient, I agree with the assessment, medical decision making and plan of care as documented. Chart was dictated using [employer] dictation software. Attempts were made to correct any dictation errors however some typographical errors may persist. (Lexis Li) - Lab Data Lab Results 02/12/19 02/12/19 02/12/19 Range/Units 00:47 00:47 00:47 WBC 5.3 (3.8-10.6) k/uL RBC 5.02 (4.30-5.90) m/uL Hgb 15.1 (13.0-17.5) gm/dL Hct 45.3 (39.0-53.0) % MCV 90.3 (80.0-100.0) fL MCH 30.2 (25.0-35.0) pg MCHC 33.4 (31.0-37.0) g/dL RDW 12.8 (11.5-15.5) % Plt Count 213 (150-450) k/uL Neutrophils % 59 % Lymphocytes % 28 % Monocytes % 6 % Eosinophils % 4 % Basophils % 1 % Neutrophils # 3.1 (1.3-7.7) k/uL Lymphocytes # 1.5 (1.0-4.8) k/uL Monocytes # 0.3 (0-1.0) k/uL Eosinophils # 0.2 (0-0.7) k/uL Basophils # 0.0 (0-0.2) k/uL PT 10.1 (9.0-12.0) sec INR 0.9 (<1.2) APTT 24.3 (22.0-30.0) sec D-Dimer (<0.60) mg/L FEU Sodium 141 (137-145) mmol/L Potassium 3.9 (3.5-5.1) mmol/L Chloride 107 (98-107) mmol/L Carbon Dioxide 26 (22-30) mmol/L Anion Gap 8 mmol/L BUN 15 (9-20) mg/dL Creatinine 0.66 (0.66-1.25) mg/dL Est GFR (CKD-EPI)AfAm >90 (>60 ml/min/1.73 sqM) Est GFR (CKD-EPI)NonAf >90 (>60 ml/min/1.73 sqM) Glucose 100 H (74-99) mg/dL Calcium 9.4 (8.4-10.2) mg/dL Magnesium 2.3 (1.6-2.3) mg/dL Total Bilirubin 1.2 (0.2-1.3) mg/dL AST 22 (17-59) U/L ALT 25 (21-72) U/L Alkaline Phosphatase 77 (38-126) U/L Troponin I (0.000-0.034) ng/mL NT-Pro-B Natriuret Pep pg/mL Total Protein 6.9 (6.3-8.2) g/dL Albumin 4.4 (3.5-5.0) g/dL 02/12/19 02/12/19 02/12/19 Range/Units 00:47 00:47 00:47 WBC (3.8-10.6) k/uL RBC (4.30-5.90) m/uL Hgb (13.0-17.5) gm/dL Hct (39.0-53.0) % MCV (80.0-100.0) fL MCH (25.0-35.0) pg MCHC (31.0-37.0) g/dL RDW (11.5-15.5) % Plt Count (150-450) k/uL Neutrophils % % Lymphocytes % % Monocytes % % Eosinophils % % Basophils % % Neutrophils # (1.3-7.7) k/uL Lymphocytes # (1.0-4.8) k/uL Monocytes # (0-1.0) k/uL Eosinophils # (0-0.7) k/uL Basophils # (0-0.2) k/uL PT (9.0-12.0) sec INR (<1.2) APTT (22.0-30.0) sec D-Dimer 0.38 (<0.60) mg/L FEU Sodium (137-145) mmol/L Potassium (3.5-5.1) mmol/L Chloride (98-107) mmol/L Carbon Dioxide (22-30) mmol/L Anion Gap mmol/L BUN (9-20) mg/dL Creatinine (0.66-1.25) mg/dL Est GFR (CKD-EPI)AfAm (>60 ml/min/1.73 sqM) Est GFR (CKD-EPI)NonAf (>60 ml/min/1.73 sqM) Glucose (74-99) mg/dL Calcium (8.4-10.2) mg/dL Magnesium (1.6-2.3) mg/dL Total Bilirubin (0.2-1.3) mg/dL AST (17-59) U/L ALT (21-72) U/L Alkaline Phosphatase (38-126) U/L Troponin I <0.012 (0.000-0.034) ng/mL NT-Pro-B Natriuret Pep 56 pg/mL Total Protein (6.3-8.2) g/dL Albumin (3.5-5.0) g/dL - EKG Data EKG Comments: Ventricular rate 69, NM interval 144, QRS 90, QT/QTc 42/4:30. NSR normal ekg, no concern for acute ischemia. (Mario Moeller) Disposition Is patient prescribed a controlled substance at d/c from ED?: No <Mario Moeller - Last Filed: 02/12/19 03:49> <Lexis Li - Last Filed: 02/12/19 05:25> Clinical Impression: Chest pain Disposition: ADMITTED IP TO THIS HOSP Condition: Serious
[2019-02-12] MEDS ORDERED: NITROGLYCERIN SL TABS 0.4 MG TAB SUBLINGUAL PRN (03:50)
[2019-02-12] MEDS ORDERED: MORPHINE SULFATE 4 MG/ML SYRINGE IV STA (04:00)
--- NOTE | 2019-02-12 10:38 | P.CRDCN ---
History of Present Illness History of present illness: This is a pleasant 63-year-old male past medical history significant for DVT and PE, hypertension and osteoarthritis. He is no longer on long-term anticoagulation per Dr. Diaz for the last 9-months. He follows in the office with Dr. Cano. We have been asked to see him in consultation for chest pain. He states yesterday he went for a routine teeth cleaning and required some numbing and antibiotic injection for a bad tooth. During the procedure he felt a tightness across his chest that radiated through to the back. It was brief and subsided on its own. Initially he attributed it to having the mediations. However, throughout the night he continued to feel this discomfort intermittently with no specific aggravating or alleviating factors. At times he felt it was difficult to take a deep breath and also his pain intensified with deep inspiration. He felt mildly nauseated through the night with no vomiting. Denies palpitations, dizziness or diaphoresis. He also through the night started having discomfort in the back of his left knee and down his left calf. EKG reveals sinus mechanism with no acute ST or T wave abnormalities noted. Chest x-ray is negative for acute cardiopulmonary process. Laboratory data reviewed, WBC 5.3, hemoglobin 15.1, platelets 213, d-dimer 0.38, sodium 141, potassium 3.9, creatinine 0.66, magnesium 2.3, cardiac enzymes negative 2, proBNP 56. He takes no daily cardiac medications. Most recent stress test performed in the office 2016 with a stress echo was negative for stress-induced ischemia. At the time of my exam: CONSTITUTIONAL: Denies fever. Denies chills. EYES: Denies blurred vision. Denies vision changes. Denies eye pain. EARS, NOSE, MOUTH & THROAT: Denies headache. Denies sore throat. Denies ear pain. CARDIOVASCULAR: Denies chest pain. Denies shortness of breath. Denies orthopnea. Denies PND. Denies palpitations. RESPIRATORY: Denies cough. GASTROINTESTINAL: Denies abdominal pain. Denies diarrhea. Denies constipation. Denies nausea. Denies vomiting. MUSCULOSKELETAL: Denies myalgias. INTEGUMENTARY: Denies pruitis. Denies rash. NEUROLOGIC: Denies numbness. Denies tingling. Denies weakness. PSYCHIATRIC: Denies anxiety. Denies depression. ENDOCRINE: Denies fatigue. Denies weight change. Denies polydipsia. Denies po lyurina. GENITOURINARY: Denies burning, hematuria or urgency with micturation. HEMATOLOGIC: Denies history of anemia. Denies bleeding. Blood pressure 149/91 heart rate 61 afebrile maintaining oxygen saturation on room air GENERAL: This is a 63-year-old male in no apparent distress at the time of my examination. HEENT: Head is atraumatic, normocephalic. Pupils are equal, round. Sclerae anicteric. Conjunctivae are clear. Mucous membranes of the mouth are moist. Neck is supple. There is no jugular venous distention. No carotid bruit is heard. LUNGS: Clear to auscultation no wheezes, rales or rhonchi. No chest wall tenderness is noted on palpation or with deep breathing. HEART: Regular rate and rhythm with short systolic ejection murmur at the left sternal border, no rubs or gallops. S1 and S2 heard. ABDOMEN: Soft, nontender. Bowel sounds are heard. No organomegaly noted. EXTREMITIES: No evidence of peripheral edema and no calf tenderness noted. VASCULAR: Radial and dorsalis pedis pulses palpated, no evidence of clubbing. NEUROLOGIC: Patient is awake, alert and oriented x3. ASSESSMENT Chest pain, atypical for angina. An acute coronary event has been ruled out. History of DVT and PE in the past, no longer on anti-coagulation per Dr. Diaz Remote history of hypertension in the past, no longer requiring medication PLAN An acute coronary event has been ruled out. Check b/l lower extremity doppler for possibility of DVT. Obtain 2D echocardiogram and doppler study to assess cardiac structure and function. Perform cardiolyte stress test to assess for reversible cardiac ischemia. Further recommendations to follow. If stress test is normal, he may be discharged home and follow up with Dr. Cano in the office. Thank you kindly for this consultation. Nurse Practitioner note has been reviewed, I agree with a documented findings and plan of care. Patient was seen and examined. Past Medical History Past Medical History: Deep Vein Thrombosis (DVT), Hypertension, Osteoarthritis (OA) Additional Past Medical History / Comment(s): hx hiatal hernia,torn acl lt knee, KIDNEY STONES History of Any Multi-Drug Resistant Organisms: None Reported Past Surgical History: Joint Replacement, Orthopedic Surgery Additional Past Surgical History / Comment(s): 2 lt knee arthroscopy,rt knee arthroscopy,rt ankle took bone chip out,OR 5th digit lt hand fused bone together had pin in place-since removed.,sinus, left knee replacement 07/29/16, deviated septum repair. Past Anesthesia/Blood Transfusion Reactions: No Reported Reaction Additional Past Anesthesia/Blood Transfusion Reaction / Comment(s): no hx blood transfusion Past Psychological History: No Psychological Hx Reported Smoking Status: Former smoker Past Alcohol Use History: None Reported Past Drug Use History: None Reported - Past Family History Father Family Medical History: Cancer Additional Family Medical History / Comment(s): prostate ca,pacemaker Mother Family Medical History: CVA/TIA Medications and Allergies Home Medications Medication Instructions Recorded Confirmed Type traMADol HCL [Ultram] 100 mg PO BID PRN 11/22/16 02/12/19 History Multivitamins, Thera [Multivitamin 1 tab PO DAILY 09/11/17 02/12/19 History (formulary)] Meloxicam [Mobic] 7.5 mg PO DAILY 02/12/19 02/12/19 History Allergies Allergy/AdvReac Type Severity Reaction Status Date / Time albuterol AdvReac LEG SPASMS Verified 02/12/19 07:29 apixaban [From Eliquis] AdvReac Headache/Burning Verified 02/12/19 07:29 Sensation All Over rivaroxaban [From Xarelto] AdvReac Headache/Burning Verified 02/12/19 07:29 Sensation All Over Physical Exam Vitals: Vital Signs Temp Pulse Pulse Resp BP Pulse Ox 02/12/19 08:30 61 17 149/91 97 02/12/19 08:00 57 L 18 145/82 97 02/12/19 07:30 64 18 140/88 96 02/12/19 07:00 58 L 18 147/91 96 02/12/19 06:28 97.9 F 60 14 149/90 97 02/12/19 05:00 63 16 163/97 96 02/12/19 04:30 64 15 161/92 96 02/12/19 04:00 64 17 168/99 98 02/12/19 03:49 97.7 F 67 13 168/99 95 02/12/19 02:00 60 16 156/90 02/12/19 01:43 96 07/02/19 01:30 64 02/12/19 00:09 98.5 F 75 18 154/89 98 Intake and Output 02/11/19 02/12/19 02/12/19 22:59 06:59 14:59 Other: Weight 113.398 kg Results 02/12/19 00:47 02/12/19 00:47 Cardiac Enzymes 02/12/19 02/12/19 02/12/19 Range/Units 00:47 00:47 07:08 AST 22 (17-59) U/L Troponin I <0.012 <0.012 (0.000-0.034) ng/mL Coagulation 02/12/19 Range/Units 00:47 PT 10.1 (9.0-12.0) sec APTT 24.3 (22.0-30.0) sec CBC 02/12/19 Range/Units 00:47 WBC 5.3 (3.8-10.6) k/uL RBC 5.02 (4.30-5.90) m/uL Hgb 15.1 (13.0-17.5) gm/dL Hct 45.3 (39.0-53.0) % Plt Count 213 (150-450) k/uL Comprehensive Metabolic Panel 02/12/19 Range/Units 00:47 Sodium 141 (137-145) mmol/L Potassium 3.9 (3.5-5.1) mmol/L Chloride 107 (98-107) mmol/L Carbon Dioxide 26 (22-30) mmol/L BUN 15 (9-20) mg/dL Creatinine 0.66 (0.66-1.25) mg/dL Glucose 100 H (74-99) mg/dL Calcium 9.4 (8.4-10.2) mg/dL AST 22 (17-59) U/L ALT 25 (21-72) U/L Alkaline Phosphatase 77 (38-126) U/L Total Protein 6.9 (6.3-8.2) g/dL Albumin 4.4 (3.5-5.0) g/dL Current Medications Generic Name Dose Route Start Last Admin Trade Name Freq PRN Reason Stop Dose Admin Aspirin 325 mg 02/13/19 09:00 Aspirin PO DAILY DENNIS Nitroglycerin 0.4 mg 02/12/19 03:50 Nitrostat SUBLINGUAL Q5M PRN Chest Pain Intake and Output 02/11/19 02/12/19 02/12/19 22:59 06:59 14:59 Other: Weight 113.398 kg 02/12/19 00:47 02/12/19 00:47
--- NOTE | 2019-02-12 11:02 | US ---
EXAMINATION TYPE: US venous doppler duplex LE DATE OF EXAM: 02/12/2019 8:57 AM COMPARISON: NONE CLINICAL HISTORY: hx dvt, similar pain. h/o dvt in left leg twice, pain and swelling bilaterally SIDE PERFORMED: Bilateral TECHNIQUE: The lower extremity deep venous system is examined utilizing real time linear array sonog hanny with graded compression, doppler sonography and color-flow sonography. VESSELS IMAGED: External Iliac Vein (EIV) Common Femoral Vein Deep Femoral Vein Greater Saphenous Vein * Femoral Vein Popliteal Vein Small Saphenous Vein * Proximal Calf Veins (* superficial vessels) Right Leg: Appears negative for DVT Left Leg: Minimal flow seen within internal echoes at proximal calf veins, not able to fully sen sed. Low-level internal laminar echoes are present, the left popliteal vein is noncompressible peripherall y. IMPRESSION: Evidence of deep venous thrombosis in the peripheral left popliteal vein show chronic lesia earance. Findings similar to prior exam.
[2019-02-12 11:42] LABS: Cholesterol 170 mg/dL (<200); HDL Cholesterol 53 mg/dL (40-60); LDL Cholesterol,Calculated 83 mg/dL (0-99); Triglycerides 172 mg/dL (<150)
--- NOTE | 2019-02-12 12:31 | ECHOF ---
Referral Reason:chest pain MEASUREMENTS -------- HEIGHT: 188.0 cm WEIGHT: 113.4 kg BP: 149/90 IVSd: 1.3 cm (0.6 - 1.1) LVIDd: 4.0 cm (3.9 - 5.3) LVPWd: 1.6 cm (0.6 - 1.1) IVSs: 1.6 cm LVIDs: 2.6 cm LVPWs: 1.8 cm LAESV Index (A-L): 24.15 ml/m Ao Diam: 2.7 cm (2.0 - 3.7) AV Cusp: 2.0 cm (1.5 - 2.6) LA Diam: 3.4 cm (2.7 - 3.8) MV EXCURSION: 16.659 mm (> 18.000) MV EF SLOPE: 72 mm/s (70 - 150) EPSS: 0.5 cm MV E Javi: 0.74 m/s MV DecT: 242 ms MV A Javi: 0.90 m/s MV E/A Ratio: 0.82 RAP: 5.00 mmHg RVSP: 21.56 mmHg FINDINGS -------- Resting bradycardia (HR<60bpm). This was a technically good study. The left ventricular size is normal. There is moderate concentric left ventricular hypertrophy. O verall left ventricular systolic function is low-normal with, an EF between 50 - 55 %. Normal LAP G rade 1 Diastolic Dysfunction. The right ventricle is normal in size. The left atrial size is normal. Normal LA size by volume 22+/-6 ml/m2. The right atrial size is normal. Interatrial and interventricular septum intact. The aortic valve is trileaflet and appears structurally normal. The mitral valve is normal. Mild mitral regurgitation is present. The tricuspid valve appears structurally normal. Mild tricuspid regurgitation present. Right vent ricular systolic pressure is normal at < 35 mmHg. There is no pulmonic regurgitation present. The aortic root size is normal. IVC Not well visulized. There is no pericardial effusion. CONCLUSIONS -------- 1. Resting bradycardia (HR<60bpm). 2. This was a technically good study. 3. The left ventricular size is normal. 4. There is moderate concentric left ventricular hypertrophy. 5. Overall left ventricular systolic function is low-normal with, an EF between 50 - 55 %. 6. Normal LAP Grade 1 Diastolic Dysfunction. 7. The right ventricle is normal in size. 8. The left atrial size is normal. 9. Normal LA size by volume 22+/-6 ml/m2. 10. The right atrial size is normal. 11. Interatrial and interventricular septum intact. 12. The aortic valve is trileaflet and appears structurally normal. 13. The mitral valve is normal. 14. Mild mitral regurgitation is present. 15. The tricuspid valve appears structurally normal. 16. Mild tricuspid regurgitation present. 17. Right ventricular systolic pressure is normal at < 35 mmHg. 18. There is no pulmonic regurgitation present. 19. The aortic root size is normal. 20. IVC Not well visulized. 21. There is no pericardial effusion. TOOL SUPERVISOR: Anh Miranda RDCS
[2019-02-12 12:36] VITALS: RESP 18
--- NOTE | 2019-02-12 13:03 | NM ---
EXAMINATION TYPE: NM stress cardiolite complete DATE OF EXAM: 02/12/2019 COMPARISON: NONE HISTORY: Chest pain TECHNIQUE: After the intravenous administration of 9.85 mCi Tc 99m Sestamibi - Rest images obtained 45 minutes post injection. The patient exercised using a ERICK protocol and 1 minute prior to peak exercise was injected with 24.1 mCi Tc 99m Sestamibi - Stress images obtained 15 minutes post injecti on. FINDINGS: Targeted heart rate was achieved during performance of the study. Review of stress and rest SPECT bell ges demonstrates decreased radio pharmaceutical uptake along the inferior left ventricle more so on s tress as compared to rest images extending towards the apex and also including portions of the inferi or septal left ventricle more on stress than on rest images. Gated analysis shows normal wall motion with an estimated left ventricular ejection fraction of 57 %. IMPRESSION: Stress induced left ventricular myocardial ischemia
[2019-02-12] MEDS ORDERED: SODIUM CHLORIDE 0.9% 1,000 ML in EMPTY BAG 1 BAG IV ONE (13:56)
[2019-02-12] MEDS ORDERED: ALPRAZolam 0.5 MG TAB PO PRN (13:56)
[2019-02-12] MEDS ORDERED: ALPRAZolam 0.25 MG TAB PO PRN (13:56)
--- NOTE | 2019-02-12 14:00 | EST ---
EXERCISE STRESS AGE: 63 SEX: M HT: 6'4" WT: 240 PROTOCOL: Cardiolite Prasanna Stress Test STAGE: 3 DURATION OF EXERCISE: 6:53 HEART RATE REST: 64 BLOOD PRESSURE REST: 174/98 MAXIMUM HEART RATE ACHIEVED: 135 MAXIMUM BLOOD PRESSURE: 207/95 85% MPHR: 133 100% MPHR: 156 INDICATIONS: Chest pain. CLINICAL INFORMATION: This patient was exercised for a total period of 7 minutes, peak heart rate of 135 was achieved. Maximum blood pressure of 207/95 mmHg was noted. Resting EKG shows normal sinus rhythm with normal AL interval and QRS duration and normal ST-T waves. No ST- segment depression suggestive of ischemia was noted. Occasional PVCs were noted. Patient did not complain of any chest pain during the test. FINAL IMPRESSION: 1. This stress test is not suggestive of ischemia. 2. Patient's exercise tolerance is average. 3. The results of the nuclear study will follow. 4. Occasional premature ventricular contractions were noted. MMODL / IJN: [id number] /
--- NOTE | 2019-02-12 14:28 | P.HPIM ---
History of Present Illness Chief Complaint: Chest pain This very pleasant 63 gentleman with a past medical history significant for DVT and PE, hypertension comes in with chest pain. The patient says that she had a follow-up with his dentist yesterday for back tooth and he had antibiotics and filling done. Patient started to feel tightness across his chest during the procedure. The pain was radiating to the back. The pain subsided on its own. He felt the same pain when he had PE. Patient was nauseous but did not throw up, he denied any diaphoresis, no shortness of breath, no cough, no racing heart, no tingling numbness on his extremities, and no itch or rash. ER course-patient's vitals were stable. EKG shows no ST-T wave changes, chest x-ray was negative, troponins were negative, blood work showed WBC 5.3 hemoglobin 15.1 platelets 213 sodium 141 potassium 3.9 creatinine 0.66 magnesium 2.3 d-dimer 0.38 BNP 56. Patient was admitted to the hospitalist service for further evaluation and management with cardiology consult Review of Systems All systems: negative Past Medical History Past Medical History: Deep Vein Thrombosis (DVT), Hypertension, Osteoarthritis (OA) Additional Past Medical History / Comment(s): hx hiatal hernia,torn acl lt knee, KIDNEY STONES History of Any Multi-Drug Resistant Organisms: None Reported Past Surgical History: Joint Replacement, Orthopedic Surgery Additional Past Surgical History / Comment(s): 2 lt knee arthroscopy,rt knee arthroscopy,rt ankle took bone chip out,OR 5th digit lt hand fused bone together had pin in place-since removed.,sinus, left knee replacement 07/29/16, deviated septum repair. Past Anesthesia/Blood Transfusion Reactions: No Reported Reaction Additional Past Anesthesia/Blood Transfusion Reaction / Comment(s): no hx blood transfusion Past Psychological History: No Psychological Hx Reported Additional Psychological History / Comment(s): pt lives alone in apt. no steps to enter apt. no pets. has a cane/walker to use if needed. 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 [employer]. Smoking Status: Former smoker Past Alcohol Use History: None Reported Additional Past Alcohol Use History / Comment(s): started smoking age 17(1971) smoked 1 to 1.5 ppd and quit 1993, while in drank but quit 1985 Past Drug Use History: None Reported - Past Family History Father Family Medical History: Cancer Additional Family Medical History / Comment(s): prostate ca,pacemaker Mother Family Medical History: CVA/TIA Medications and Allergies Home Medications Medication Instructions Recorded Confirmed Type traMADol HCL [Ultram] 100 mg PO BID PRN 11/22/16 02/12/19 History Multivitamins, Thera [Multivitamin 1 tab PO DAILY 09/11/17 02/12/19 History (formulary)] Meloxicam [Mobic] 7.5 mg PO DAILY 02/12/19 02/12/19 History Allergies Allergy/AdvReac Type Severity Reaction Status Date / Time albuterol AdvReac LEG SPASMS Verified 02/12/19 07:29 apixaban [From Eliquis] AdvReac Headache/Burning Verified 02/12/19 07:29 Sensation All Over rivaroxaban [From Xarelto] AdvReac Headache/Burning Verified 02/12/19 07:29 Sensation All Over Physical Exam Vitals: Vital Signs Temp Pulse Pulse Pulse Resp BP BP 02/12/19 12:35 97.5 F L 74 18 180/95 02/12/19 08:30 61 17 149/91 02/12/19 08:00 57 L 18 145/82 02/12/19 07:30 64 18 140/88 02/12/19 07:00 58 L 18 147/91 02/12/19 06:28 97.9 F 60 14 149/90 02/12/19 05:00 63 16 163/97 02/12/19 04:30 64 15 161/92 02/12/19 04:00 64 17 168/99 02/12/19 03:49 97.7 F 67 13 168/99 02/12/19 02:00 60 16 156/90 02/12/19 01:43 02/12/19 01:30 64 02/12/19 00:09 98.5 F 75 18 154/89 Pulse Ox 02/12/19 12:35 97 02/12/19 08:30 97 02/12/19 08:00 97 02/12/19 07:30 96 02/12/19 07:00 96 02/12/19 06:28 97 02/12/19 05:00 96 02/12/19 04:30 96 02/12/19 04:00 98 02/12/19 03:49 95 02/12/19 02:00 02/12/19 01:43 96 02/12/19 01:30 02/12/19 00:09 98 Intake and Output 02/11/19 02/12/19 02/12/19 22:59 06:59 14:59 Intake Total 300 Balance 300 Intake: Oral 300 Other: Weight 113.398 kg 113.398 kg On exam, alert and oriented x3. HEENT: Conjunctivae normal. eyes normal. NECK: No JVD. No thyroid enlargement. No LNs CARDIOVASCULAR: S1-S2 positive RESPIRATION: Breath sounds diminished in the bases. No rhonchi or crackles. No bronchial breathing. ABDOMEN: Soft, nontender . No guarding. no masses palpable. No ascites, No hepatosplenomegaly.Bowel sounds heard. LEGS: No edema. no swelling NERVOUS SYSTEM: Cranial N 2-12 grossly normal. Moves all 4 limbs. No focal deficits. No sensory deficit. No signs of cerebellar dysfucntion. Skin: no ulcer no rash Results CBC & Chem 7: 02/12/19 00:47 02/12/19 00:47 Labs: Abnormal Lab Results - Last 24 Hours (Table) 02/12/19 02/12/19 Range/Units 00:47 00:47 Glucose 100 H (74-99) mg/dL Triglycerides 172 H (<150) mg/dL Thrombosis Risk Factor Assmnt - Choose All That Apply Any of the Below Risk Factors Present?: Yes Each Factor Represents 1 point: Obesity (BMI >25) Other Risk Factors: Yes Each Risk Factor Represents 2 Points: Age 61-74 years Each Risk Factor Represents 3 Points: History of DVT/PE Thrombosis Risk Factor Assessment Total Risk Factor Score: 6 Thrombosis Risk Factor Assessment Level: High Risk Assessment and Plan Assessment: - Chest pain rule out angina - History of DVT and PE - History of hypertension Plan - Patient was admitted to CDU - Patient had a stress echo which was positive and patient will need a heart cath - Cardiology on board and appreciate the recommendations - We we'll resume the patient's home medications - DVT and GI prophylaxis -Nothing by mouth after midnight - We'll order for lab work in the morning - Patient is full code Time with Patient: Greater than 30
[2019-02-12] MEDS ORDERED: traMADol 50 MG TAB PO PRN (18:16)
[2019-02-13 05:39] LABS: HCT 44.7 % (39.0-53.0); HGB 14.9 gm/dL (13.0-17.5); MCH 30.4 pg (25.0-35.0); MCHC 33.3 g/dL (31.0-37.0); MCV 91.2 fL (80.0-100.0); Mean Platelet Volume 8.1; Platelet Count 209 k/uL (150-450); WBC 5.1 k/uL (3.8-10.6)
[2019-02-13 05:48] LABS: African American GFR (CKD) >90 (>60 ml/min/1.73 sqM); Anion Gap 7 mmol/L; Blood Urea Nitrogen 16 mg/dL (9-20); Calcium 9.2 mg/dL (8.4-10.2); Carbon Dioxide 26 mmol/L (22-30); Chloride 107 mmol/L (98-107); Glucose 96 mg/dL (74-99); Potassium 4.3 mmol/L (3.5-5.1); Sodium 140 mmol/L (137-145)
[2019-02-13] MEDS ORDERED: ATORVASTATIN 80 MG TAB PO ONE (07:00)
[2019-02-13] MEDS ORDERED: ASPIRIN 325 MG TAB PO SCH (09:00)
[2019-02-13] MEDS ORDERED: LIDOCAINE 1% INJ 10MG/ML (20 ML MDV) ONE (10:06)
[2019-02-13] MEDS ORDERED: fentaNYL (PF) 50 MCG/ML 2 ML AMP ONE (10:06)
[2019-02-13] MEDS ORDERED: IV FLUID CONTINUATION 950 ML IV ONE (10:23)
[2019-02-13] MEDS: MIDAZOLAM (PF) 2 MG/2 ML VIAL IV ONE ×2 (10:25→10:32)
[2019-02-13] MEDS ORDERED: fentaNYL (PF) 50 MCG/ML 2 ML AMP IV ONE (10:25)
[2019-02-13] MEDS ORDERED: LIDOCAINE 1% INJ 10MG/ML (20 ML MDV) SQ ONE (10:30)
[2019-02-13] MEDS ORDERED: IOPAMIDOL-370 125ML BTL INJ ONE (10:45)
[2019-02-13] MEDS ORDERED: METOPROLOL SUCCINATE (ER) 50 MG TAB.ER.24H PO SCH (11:15)
[2019-02-13 11:19] VITALS: TEMP 97.5
--- NOTE | 2019-02-13 11:29 | CC ---
CARDIAC CATHETERIZATION REPORT Mr. Wen is a 63-year-old gentleman who was admitted to the observation unit with a recurrent chest pain. This patient had a dental treatment. He was given some injection and antibiotics and after the surgery was finished, he started having a discomfort across the chest. The discomfort was intermittent. He was admitted in the hospital. EKGs and cardiac enzymes were normal. Patient underwent stress Cardiolite study which showed evidence of inferior septal and inferior apical ischemia. In view of that, the patient was recommended to have a cardiac catheterization for definitive diagnosis. PROCEDURE: The right groin was prepped and draped in the usual manner and the right femoral artery was entered using Seldinger technique and micropuncture needle under ultrasound guidance. A #6-Sinhala sheath was placed in. Selective coronary angiography was then performed in multiple projections. Left ventricular pressures were obtained. Sheath was removed and good hemostasis was achieved with the use of Angio-Seal. The Hemovac. The moderate sedation was used. Total sedation time was 19 minutes. HEMODYNAMICS: The left ventricular end-diastolic pressure is 8-10 mmHg prior to angiography. No gradient is noted across the aortic valve. SELECTIVE CORONARY ANGIOGRAPHY: Left main coronary artery is normal and patent to LAD. LAD is a good caliber blood vessel and gives rise to good size diagonal branch. LAD and its branches are normal. Circumflex coronary artery is a normal caliber blood vessel. It is a nondominant in distribution, gives rise to a good size obtuse marginal branch. Circumflex coronary artery and its branches are normal. Right coronary artery is a good caliber blood vessel and gives rise to the posterior descending artery. The right coronary artery and its branches are normal. FINAL IMPRESSION: This study reveals normal coronary arteries. Left ventricular end-diastolic pressure is normal. RECOMMENDATIONS: Medical treatment and risk factor modification. MMODL / IJN: [id number] /
--- NOTE | 2019-02-13 12:42 | P.DS ---
Providers Date of admission: 02/12/19 05:19 Expected date of discharge: 02/13/19 Attending physician: Brianna Dill Consults: 02/12/19 03:50 Consult Physician Urgent Consulting Provider: [facility] Consult Reason/Comments: chest pain, acs rule out Do you want consulting provider notified?: Yes, Notify in am Primary care physician: [facility] Course: Discharge diagnosis - Chest pain angina ruled out - History of DVT and PE - History of hypertension - Osteoarthritis Hospital course his very pleasant 63 gentleman with a past medical history significant for DVT and PE, hypertension comes in with chest pain. The patient says that she had a follow-up with his dentist yesterday for back tooth and he had antibiotics and filling done. Patient started to feel tightness across his chest during the procedure. The pain was radiating to the back. The pain subsided on its own. He felt the same pain when he had PE. Patient was nauseous but did not throw up, he denied any diaphoresis, no shortness of breath, no cough, no racing heart, no tingling numbness on his extremities, and no itch or rash. ER course-patient's vitals were stable. EKG shows no ST-T wave changes, chest x-ray was negative, troponins were negative, blood work showed WBC 5.3 hemoglobin 15.1 platelets 213 sodium 141 potassium 3.9 creatinine 0.66 magnesium 2.3 d-dimer 0.38 BNP 56. Patient was admitted to the hospitalist service for further evaluation and management with cardiology consult The stress test was positive so the patient was born for a heart cath which came back normal. Cardiology recommended medical management and risk factor stratification. Patient was started on Toprol and aspirin was continued by me On 02/13/2019 Patient was not complaining of any chest pain racing heart, no cough no shortness of breath no headache, loss of vision or blurry vision On exam, alert and oriented x3. HEENT: Conjunctivae normal. eyes normal. NECK: No JVD. No thyroid enlargement. No LNs CARDIOVASCULAR: S1-S2 positive RESPIRATION: Breath sounds diminished in the bases. No rhonchi or crackles. No bronchial breathing. ABDOMEN: Soft, nontender . No guarding. no masses palpable. No ascites, No hepatosplenomegaly.Bowel sounds heard. Slight tenderness in the right groin secondary to the cath patient has no flank tenderness at this time. LEGS: No edema. no swelling NERVOUS SYSTEM: Cranial N 2-12 grossly normal. Moves all 4 limbs. No focal deficits. No sensory deficit. No signs of cerebellar dysfucntion. Skin: no ulcer no rash Patient came in discharge when cleared by cardiology Patient is to follow with cardiology and the date discussed below in the discharge summary Patient is also requested to follow with his primary care doctor Patient is to continue taking metoprolol and aspirin Patient Condition at Discharge: Stable Plan - Discharge Summary Discharge Rx Participant: No New Discharge Prescriptions: New Aspirin 81 mg PO DAILY #30 chew Metoprolol Succinate (ER) [Toprol XL] 50 mg PO DAILY #30 tab.er.24h Continue traMADol HCL [Ultram] 100 mg PO BID PRN PRN Reason: Pain Multivitamins, Thera [Multivitamin (formulary)] 1 tab PO DAILY Meloxicam [Mobic] 7.5 mg PO DAILY Discharge Medication List traMADol HCL [Ultram] 100 mg PO BID PRN 11/22/16 [History] Multivitamins, Thera [Multivitamin (formulary)] 1 tab PO DAILY 09/11/17 [History] Meloxicam [Mobic] 7.5 mg PO DAILY 02/12/19 [History] Aspirin 81 mg PO DAILY #30 chew 02/13/19 [Rx] Metoprolol Succinate (ER) [Toprol XL] 50 mg PO DAILY #30 tab.er.24h 02/13/19 [Rx] Follow up Appointment(s)/Referral(s): Spencer Cano MD [STAFF PHYSICIAN] - 1 Week (OFFICE TO CALL YOU APPOINTMENT TIME) [facility],Clinic [Primary Care Provider] - 1-2 days Patient Instructions/Handouts: Chest Pain (DC) Activity/Diet/Wound Care/Special Instructions: If he notices any increased chest pain or racing heart, any increased shortness breath or cough, any lightheadedness or dizziness, any earache, any loss of vision or blurry vision, any tingling numbness in the extremities, please call 911 and come to the ER for further evaluation and management Discharge Disposition: HOME SELF-CARE
[2019-02-13 14:00] VITALS: BP 143/72; PULSE 72
[2019-02-14] MEDS ORDERED: ASPIRIN 81 MG PO SCH (09:00)
== END 2019-02-13 15:50 | disposition home or self-care (01) ==
LOC: EC 00:01 → 1SOBS 05:19
PROVIDERS: ADMIT Hospitalist; ATTEND Hospitalist
DX: R07.89 Other chest pain (principal); R94.39 Abnormal result of other cardiovascular function study; R11.0 Nausea; M19.90 Unspecified osteoarthritis, unspecified site; I82.532 Chronic embolism and thrombosis of left popliteal vein; K44.9 Diaphragmatic hernia without obstruction or gangrene; E66.9 Obesity, unspecified; Z68.30 Body mass index [BMI] 30.0-30.9, adult; I10 Essential (primary) hypertension; M54.9 Dorsalgia, unspecified; Z79.01 Long term (current) use of anticoagulants; Z79.1 Long term (current) use of non-steroidal anti-inflammatories (NSAID); Z79.899 Other long term (current) drug therapy; Z88.8 Allergy status to other drugs, medicaments and biological substances; Z86.711 Personal history of pulmonary embolism; Z87.442 Personal history of urinary calculi; Z96.652 Presence of left artificial knee joint; Z98.1 Arthrodesis status; Z87.891 Personal history of nicotine dependence; W22.8XXA Striking against or struck by other objects, initial encounter; Z82.3 Family history of stroke; Z82.49 Family history of ischemic heart disease and other diseases of the circulatory system; Z80.42 Family history of malignant neoplasm of prostate
CPT/HCPCS: 96374; 99285; 36415; 93005; 93017; 93306; 93458; 76937; 85379; 83880; 80061; 80053; 80048; 83735; 84484; 85025; 85027; 85610; 85730; 71046; 93970; 72125; 70450; 78452; G0378 ×2; C1894; C1769 ×2; A9500; J2270; J2001; J3010; Q9967; J2250

== ENCOUNTER 2019-07-22 06:45 | Emergency (ER) | payer MEDICARE, OTHER ==
[2019-07-22 07:00] VITALS: BP 166/88; PULSE 66; RESP 18; TEMP 98.3
[2019-07-22] MEDS ORDERED: PROPARACAINE 0.5% OPHTH DROPS 15 ML BTL RIGHT EYE STA (07:12)
--- NOTE | 2019-07-22 07:35 | ED ---
General Adult HPI - General Chief complaint: Eye Problems Stated complaint: Rt Eye Vision Changes Time Seen by Provider: 07/22/19 07:02 Source: patient, family, RN notes reviewed, old records reviewed Mode of arrival: ambulatory Limitations: no limitations - History of Present Illness Initial comments: 64-year-old male presenting with complaints of floaters in his right eye. Patient states that yesterday evening he felt a bug in his eye and had smacked the buccal way and awoke this morning with these visual changes. His central vision is intact he has no difficulty seeing. Denies significant trauma to the ICU to is a mild SWAT. Denies headache. No other complaints. No fever or chills. - Related Data Home Medications Medication Instructions Recorded Confirmed traMADol HCL [Ultram] 100 mg PO BID PRN 11/22/16 02/12/19 Multivitamins, Thera [Multivitamin 1 tab PO DAILY 09/11/17 02/12/19 (formulary)] Meloxicam [Mobic] 7.5 mg PO DAILY 02/12/19 02/12/19 Previous Rx's Medication Instructions Recorded Aspirin 81 mg PO DAILY #30 chew 02/13/19 Metoprolol Succinate (ER) [Toprol 50 mg PO DAILY #30 tab.er.24h 02/13/19 XL] Allergies Allergy/AdvReac Type Severity Reaction Status Date / Time albuterol AdvReac LEG SPASMS Verified 07/22/19 07:00 apixaban [From Eliquis] AdvReac Headache/Burning Verified 07/22/19 07:00 Sensation All Over rivaroxaban [From Xarelto] AdvReac Headache/Burning Verified 07/22/19 07:00 Sensation All Over Review of Systems ROS Statement: Those systems with pertinent positive or pertinent negative responses have been documented in the HPI. ROS Other: All systems not noted in ROS Statement are negative. Past Medical History Past Medical History: Deep Vein Thrombosis (DVT), Hypertension, Osteoarthritis (OA) Additional Past Medical History / Comment(s): hx hiatal hernia,torn acl lt knee, KIDNEY STONES History of Any Multi-Drug Resistant Organisms: None Reported Past Surgical History: Joint Replacement, Orthopedic Surgery Additional Past Surgical History / Comment(s): 2 lt knee arthroscopy,rt knee arthroscopy,rt ankle took bone chip out,OR 5th digit lt hand fused bone together had pin in place-since removed.,sinus, left knee replacement 07/29/16, deviated septum repair. Past Anesthesia/Blood Transfusion Reactions: No Reported Reaction Additional Past Anesthesia/Blood Transfusion Reaction / Comment(s): no hx blood transfusion Past Psychological History: No Psychological Hx Reported Smoking Status: Former smoker Past Alcohol Use History: None Reported Past Drug Use History: None Reported - Past Family History Father Family Medical History: Cancer Additional Family Medical History / Comment(s): prostate ca,pacemaker Mother Family Medical History: CVA/TIA General Exam Limitations: no limitations General appearance: alert, in no apparent distress Head exam: Present: atraumatic, normocephalic Eye exam: Present: normal appearance, PERRL, EOMI, other (Pressure is 12 in the right eye, a level in the left eye. Extraocular motions are intact. No proptosis.). Absent: scleral icterus, periorbital swelling, periorbital tenderness ENT exam: Present: normal exam Neck exam: Present: normal inspection. Absent: tenderness, meningismus Course Vital Signs 07/22/19 06:56 Temperature 98.3 F Pulse Rate 66 Respiratory 18 Rate Blood Pressure 166/88 O2 Sat by Pulse 97 Oximetry Medical Decision Making - Medical Decision Making 64-year-old male with floaters in his right eye. Anterior examination I is u nremarkable, there is no flow seen uptake suggestive corneal abrasion. Pupils are reactive. Patient has normal visual heart in the emergency department, normal extraocular motion. I did ultrasound his eye and there is a slight linear echo in the posterior one third of the eye. This does not track to the retina itself. I have a low suspicion for retinal detachment. Suspect vitreous detachment or vitreous hemorrhage. I did discuss case with Dr. Armando, and he is able to see the patient in the office this morning. Patient will leave from here and follow with ophthalmology. Disposition Clinical Impression: Vitreous detachment of right eye Disposition: HOME SELF-CARE Condition: Fair Instructions (If sedation given, give patient instructions): Visual Floaters (ED) Additional Instructions: Please follow up with Dr. Armando this morning. Is patient prescribed a controlled substance at d/c from ED?: No Referrals: [facility],Clinic [Primary Care Provider] - 1-2 days Cary Armando MD [STAFF PHYSICIAN] - 1-2 days Time of Disposition: 07:33
== END 2019-07-22 07:40 | disposition home or self-care (01) ==
LOC: EC 06:45
DX: H43.811 Vitreous degeneration, right eye (principal); M19.90 Unspecified osteoarthritis, unspecified site; I10 Essential (primary) hypertension; Z79.899 Other long term (current) drug therapy; Z79.1 Long term (current) use of non-steroidal anti-inflammatories (NSAID); Z87.891 Personal history of nicotine dependence; Z88.8 Allergy status to other drugs, medicaments and biological substances; Z86.718 Personal history of other venous thrombosis and embolism; Z96.651 Presence of right artificial knee joint
CPT/HCPCS: 99284

== ENCOUNTER → 2020-02-18 | Outpatient (CLI) | payer MEDICARE, OTHER | END | disposition home or self-care (01) | LOC: LABWHC1 14:02 | PROVIDERS: ATTEND Emergency Medicine | DX: Z11.59 Encounter for screening for other viral diseases (principal); Z20.828 Contact with and (suspected) exposure to other viral communicable diseases ==

== ENCOUNTER 2021-01-28 10:36 | Emergency (ER) | payer MEDICARE, OTHER ==
[2021-01-28 10:47] VITALS: BP 148/75; PULSE 70; RESP 18; TEMP 97.8
--- NOTE | 2021-01-28 11:35 | ED ---
Lower Extremity Injury HPI - General Chief Complaint: Extremity Injury, Lower Stated Complaint: Toe pain Source: patient, RN notes reviewed Mode of arrival: ambulatory Limitations: no limitations - History of Present Illness Initial Comments: 65-year-old white male patient, alert and oriented 4, presents to the emergency room with complaints of a growth to his right third metatarsal. Patient states has been present for 6 months. He has been seen in the past for bilateral feet concerns and pain and was told he needs orthotics but patient is not wearing those. Patient has also seen podiatry in the past for chronic foot pain. Patient states he's been having problems at work and theyve been sending him home early because he has body odor. Patient work assignments have changed because no one wants to work with, he feels he is being bullied at work. Patient states that someone from work gave him a new shirt because they felt he smelled bad. Patient requesting a couple of days off work due to the psychological impact it is having on him. MD Complaint: other (Right foot third digit growth) -: month(s) (6) Severity scale (1-10): 3 Worsens With: weight bearing, palpation - Related Data Home Medications Medication Instructions Recorded Confirmed traMADol HCL [Ultram] 100 mg PO BID PRN 11/22/16 02/12/19 Multivitamins, Thera [Multivitamin 1 tab PO DAILY 09/11/17 02/12/19 (formulary)] Meloxicam [Mobic] 7.5 mg PO DAILY 02/12/19 02/12/19 Previous Rx's Medication Instructions Recorded Aspirin 81 mg PO DAILY #30 chew 02/13/19 Metoprolol Succinate (ER) [Toprol 50 mg PO DAILY #30 tab.er.24h 02/13/19 XL] Allergies Allergy/AdvReac Type Severity Reaction Status Date / Time albuterol AdvReac LEG SPASMS Verified 01/28/21 10:47 Review of Systems ROS Statement: Those systems with pertinent positive or pertinent negative responses have been documented in the HPI. ROS Other: All systems not noted in ROS Statement are negative. Past Medical History Past Medical History: Deep Vein Thrombosis (DVT), Hypertension, Osteoarthritis (OA) Additional Past Medical History / Comment(s): hx hiatal hernia,torn acl lt knee, KIDNEY STONES History of Any Multi-Drug Resistant Organisms: None Reported Past Surgical History: Joint Replacement, Orthopedic Surgery Additional Past Surgical History / Comment(s): 2 lt knee arthroscopy,rt knee arthroscopy,rt ankle took bone chip out,OR 5th digit lt hand fused bone together had pin in place-since removed,sinus, left knee replacement 07/29/16, deviated septum repair. Past Anesthesia/Blood Transfusion Reactions: No Reported Reaction Additional Past Anesthesia/Blood Transfusion Reaction / Comment(s): no hx blood transfusion Past Psychological History: No Psychological Hx Reported Smoking Status: Never smoker Past Alcohol Use History: None Reported Past Drug Use History: None Reported - Past Family History Father Family Medical History: Cancer Additional Family Medical History / Comment(s): prostate ca,pacemaker Mother Family Medical History: CVA/TIA General Exam Limitations: no limitations General appearance: alert, in no apparent distress Head exam: Present: atraumatic, normocephalic, normal inspection Eye exam: Present: normal appearance, PERRL, EOMI. Absent: scleral icterus, conjunctival injection, periorbital swelling ENT exam: Present: normal exam, normal oropharynx, mucous membranes moist Neck exam: Present: normal inspection, full ROM. Absent: tenderness, meningismus, lymphadenopathy, thyromegaly Respiratory exam: Present: normal lung sounds bilaterally. Absent: respiratory distress, wheezes, rales, rhonchi, stridor Cardiovascular Exam: Present: regular rate, normal rhythm, normal heart sounds. Absent: systolic murmur, diastolic murmur, rubs, gallop, clicks GI/Abdominal exam: Present: soft, normal bowel sounds. Absent: distended, tenderness, guarding, rebound, rigid Extremities exam: Present: normal inspection, full ROM, normal capillary refill. Absent: tenderness, pedal edema, joint swelling, calf tenderness Right Foot/Toe exam: Present: full ROM, tenderness (Lesion to the lateral aspect of the third metatarsal, callused with a dark center) Neurovascular tendon exam: Present: no vascular compromise. Absent: pulse deficit, abnormal cap refill, motor deficit, sensory deficit, tendon deficit, extremity cold to touch, pallor, abnormal 2-point discrimination, decreased fine/light touch, foot drop Left Foot/Toe exam: Present: normal inspection, full ROM. Absent: tenderness, swelling, ecchymosis, deformity, calcaneal tenderness, tenderness at base of 5th metatarsal Neurovascular tendon exam: Present: no vascular compromise. Absent: pulse deficit, abnormal cap refill, motor deficit, sensory deficit, tendon deficit, extremity cold to touch, pallor, foot drop Back exam: Present: normal inspection. Absent: tenderness, CVA tenderness (R), CVA tenderness (L), muscle spasm, paraspinal tenderness, vertebral tenderness, rash noted Neurological exam: Present: alert, oriented X3, CN II-XII intact Psychiatric exam: Present: normal affect, normal mood Skin exam: Present: warm, dry, intact, normal color. Absent: rash Course Vital Signs 01/28/21 10:45 Temperature 97.8 F Pulse Rate 70 Respiratory 18 Rate Blood Pressure 148/75 O2 Sat by Pulse 96 Oximetry Medical Decision Making - Medical Decision Making Patient has a callus type growth to the lateral aspect of his right third metatarsal has been present for over 6 months. Patient has no neurovascular deficits, has normal inversion and eversion flexion and extension of bilateral feet and ankles. There is no signs of symptoms of infection, erythema or drainage. Patient will be provide follow-up with dermatology for evaluation of growth. Patient denies any systemic symptoms, no fever nausea vomiting diarrhea chest pain or shortness of breath. case discussed with dr Huntley. Disposition Clinical Impression: Lesion of skin of foot Disposition: HOME SELF-CARE Condition: Good Instructions (If sedation given, give patient instructions): Metatarsalgia (DC) Is patient prescribed a controlled substance at d/c from ED?: No Referrals: [facility],Clinic [Primary Care Provider] - 1-2 days Jered Davis DPM [STAFF PHYSICIAN] - 1-2 days Time of Disposition: 11:38
== END 2021-01-28 11:46 | disposition home or self-care (01) ==
LOC: EC 10:36
DX: L98.9 Disorder of the skin and subcutaneous tissue, unspecified (principal); I10 Essential (primary) hypertension; Z86.718 Personal history of other venous thrombosis and embolism; Z87.442 Personal history of urinary calculi; Z79.1 Long term (current) use of non-steroidal anti-inflammatories (NSAID); Z79.82 Long term (current) use of aspirin; Z79.899 Other long term (current) drug therapy
CPT/HCPCS: 99283

== ENCOUNTER 2021-03-23 13:40 | Emergency (ER) | payer MEDICARE, OTHER ==
[2021-03-23 14:03] VITALS: BP 164/89; PULSE 76; RESP 19; TEMP 98.3
--- NOTE | 2021-03-23 14:47 | ED ---
Eye Problem HPI - General Chief complaint: Eye Problems Stated complaint: possible pink eye Time Seen by Provider: 03/23/21 14:33 Source: patient Mode of arrival: ambulatory Limitations: no limitations - History of Present Illness Initial comments: Patient is a 65-year-old male presenting to the emergency department with concerns of possible pinkeye of his left eye. He states he woke up yesterday and this morning with crusting of his eyes and some mild drainage. He did note a little bit of redness. He denies any fevers or chills. He denies any s ystemic type pain, does report some irritation of the corner of the eye. He denies any foreign bodies. 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 He denies any recent cold or congestion. He denies any blurry vision or dizziness. He has no further complaints. - Related Data Home Medications Medication Instructions Recorded Confirmed traMADol HCL [Ultram] 100 mg PO BID PRN 11/22/16 02/12/19 Multivitamins, Thera [Multivitamin 1 tab PO DAILY 09/11/17 02/12/19 (formulary)] Meloxicam [Mobic] 7.5 mg PO DAILY 02/12/19 02/12/19 Previous Rx's Medication Instructions Recorded Aspirin 81 mg PO DAILY #30 chew 02/13/19 Metoprolol Succinate (ER) [Toprol 50 mg PO DAILY #30 tab.er.24h 02/13/19 XL] Polymyxin B-Trimeth Sulf Ophth 1 drops LEFT EYE Q3H 7 Days #1 03/23/21 [Polytrim Opthalmic] bottle Allergies Allergy/AdvReac Type Severity Reaction Status Date / Time albuterol AdvReac LEG SPASMS Verified 03/23/21 14:00 Review of Systems ROS Statement: Those systems with pertinent positive or pertinent negative responses have been documented in the HPI. ROS Other: All systems not noted in ROS Statement are negative. Past Medical History Past Medical History: Deep Vein Thrombosis (DVT), Hypertension, Osteoarthritis (OA) Additional Past Medical History / Comment(s): hx hiatal hernia,torn acl lt knee, KIDNEY STONES History of Any Multi-Drug Resistant Organisms: None Reported Past Surgical History: Joint Replacement, Orthopedic Surgery Additional Past Surgical History / Comment(s): 2 lt knee arthroscopy,rt knee arthroscopy,rt ankle took bone chip out,OR 5th digit lt hand fused bone together had pin in place-since removed,sinus, left knee replacement 07/29/16, deviated septum repair. Past Anesthesia/Blood Transfusion Reactions: No Reported Reaction Additional Past Anesthesia/Blood Transfusion Reaction / Comment(s): no hx blood transfusion Past Psychological History: No Psychological Hx Reported Smoking Status: Never smoker Past Alcohol Use History: None Reported Past Drug Use History: None Reported - Past Family History Father Family Medical History: Cancer Additional Family Medical History / Comment(s): prostate ca,pacemaker Mother Family Medical History: CVA/TIA General Exam - General Exam Comments Initial Comments: GENERAL: Patient is well-developed and well-nourished. Patient is nontoxic and in no acute distress. HEAD: Atraumatic, normocephalic. EYES: Pupils equal round and reactive to light, extraocular movements intact, sclera a nicteric,. Eyelids were unremarkable. Slightly injected on the left side, there is some green drainage in the corner of the eye. No foreign body seen, no styes. ENT: TMs normal, nares patent, oropharynx clear without exudates. Moist mucous membranes. NECK: Normal range of motion, supple without lymphadenopathy or JVD. LUNGS: Unlabored respirations. Breath sounds clear to auscultation bilaterally and equal. No wheezes rales or rhonchi. HEART: Regular rate and rhythm without murmurs, rubs or gallops. SKIN: Warm, Dry, normal turgor, no rashes or lesions noted. Limitations: no limitations Course Vital Signs 03/23/21 13:58 Temperature 98.3 F Pulse Rate 76 Respiratory 19 Rate Blood Pressure 164/89 O2 Sat by Pulse 98 Oximetry Medical Decision Making - Medical Decision Making Patient is a 65-year-old male presenting with possible pinkeye of the left eye. Denies any significant eye pain, some mild irritation, left eye is slightly injected, greenish discharge in the corner. No blurry vision. No foreign body seen. Patient be started and a medic eyedrops. He can follow-up with his eye doctor. He is agreeable as planned care and he is stable for discharge. Disposition Clinical Impression: Left conjunctivitis Disposition: HOME SELF-CARE Condition: Stable Instructions (If sedation given, give patient instructions): Conjunctivitis (ED) Additional Instructions: Please return to the Emergency Department if symptoms worsen or any other concerns. Use eyedrops as prescribed. Follow-up with your eye doctor. Prescriptions: Polymyxin B-Trimeth Sulf Ophth [Polytrim Opthalmic] 1 drops LEFT EYE Q3H 7 Days #1 bottle Is patient prescribed a controlled substance at d/c from ED?: No Referrals: [facility],Clinic [Primary Care Provider] - 1-2 days Time of Disposition: 14:47
== END 2021-03-23 14:56 | disposition home or self-care (01) ==
LOC: EC 13:40
DX: H10.9 Unspecified conjunctivitis (principal); I10 Essential (primary) hypertension; M19.90 Unspecified osteoarthritis, unspecified site; Z86.718 Personal history of other venous thrombosis and embolism; Z88.8 Allergy status to other drugs, medicaments and biological substances; Z79.1 Long term (current) use of non-steroidal anti-inflammatories (NSAID)

== ENCOUNTER 2021-07-25 01:51 | Observation (INO) | payer MEDICARE, OTHER ==
[2021-07-25 03:25] LABS: Basophils # (A) 0.1 k/uL (0-0.2); Basophils % (A) 1 %; Eosinophils # (A) 0.4 k/uL (0-0.7); Eosinophils % (A) 7 %; HCT 45.8 % (39.0-53.0); HGB 15.4 gm/dL (13.0-17.5); Lymphocytes # (A) 1.8 k/uL (1.0-4.8); Lymphocytes % (A) 30 %; MCH 31.7 pg (25.0-35.0); MCHC 33.7 g/dL (31.0-37.0); MCV 94.2 fL (80.0-100.0); Mean Platelet Volume 7.2; Monocytes # (A) 0.3 k/uL (0-1.0); Monocytes % (A) 5 %; Neutrophils # (A) 3.2 k/uL (1.3-7.7); Neutrophils % (A) 54 %; Platelet Count 205 k/uL (150-450); RBC 4.86 m/uL (4.30-5.90); RDW 13.2 % (11.5-15.5); WBC 5.9 k/uL (3.8-10.6)
[2021-07-25 03:38] LABS: ALT 19 U/L (4-49); AST 20 U/L (17-59); African American GFR (CKD) >90 (>60 ml/min/1.73 sqM); Alkaline Phosphatase 74 U/L (38-126); Anion Gap 6 mmol/L; Blood Urea Nitrogen 17 mg/dL (9-20); Calcium 9.7 mg/dL (8.4-10.2); Carbon Dioxide 27 mmol/L (22-30); Chloride 107 mmol/L (98-107); Glucose 117 mg/dL (74-99); Non-African American GFR(CKD) 89 (>60 ml/min/1.73 sqM); Potassium 3.9 mmol/L (3.5-5.1); Sodium 140 mmol/L (137-145); Total Bilirubin 0.7 mg/dL (0.2-1.3); Total Protein 6.7 g/dL (6.3-8.2)
[2021-07-25 03:54] LABS: INR 0.9 (<1.2); Partial Thromboplastin Time 22.9 sec (22.0-30.0); Prothrombin Time 10.1 sec (9.0-12.0)
--- NOTE | 2021-07-25 03:57 | XR ---
EXAMINATION TYPE: XR chest 2V DATE OF EXAM: 07/25/2021 COMPARISON: February 12, 2019 HISTORY: Short of breath TECHNIQUE: 2 views FINDINGS: Heart and mediastinum are normal. Lungs are clear. Diaphragm is normal. Bony thorax is inta ct. IMPRESSION: No active cardiac pulmonary disease. No change.
--- NOTE | 2021-07-25 04:11 | ED ---
SOB HPI - General Chief Complaint: Shortness of Breath Stated Complaint: Blood Clot, Right Arm numbness Time Seen by Provider: 07/25/21 02:38 Source: patient Mode of arrival: ambulatory Limitations: no limitations - History of Present Illness Initial Comments: This patient is 66-year-old man who presents with chest tightness and dyspnea area patient states that the symptoms had come on early Monday morning, approximately 1 AM while he was at work. Patient states that he left work, and went home to rest. The symptoms recurred and the following nights tonight as well. The patient states that the symptoms are somewhat reminiscent previous episode of pulmonary embolism that he had. He notes that he is not currently taking any anticoagulant. No diaphoresis, nausea vomiting, palpitations or lightheadedness. MD Complaint: shortness of breath, chest pain Onset/Timin -: days(s) Severity: moderate Quality: other (tightness) Consistency: intermittent Improves With: nothing Worsens With: nothing Associated Symptoms: denies other symptoms Treatments Prior to Arrival: none - Related Data Home Medications Medication Instructions Recorded Confirmed traMADol HCL [Ultram] 100 mg PO BID PRN 11/22/16 02/12/19 Multivitamins, Thera [Multivitamin 1 tab PO DAILY 09/11/17 02/12/19 (formulary)] Meloxicam [Mobic] 7.5 mg PO DAILY 02/12/19 02/12/19 Previous Rx's Medication Instructions Recorded Aspirin 81 mg PO DAILY #30 chew 02/13/19 Metoprolol Succinate (ER) [Toprol 50 mg PO DAILY #30 tab.er.24h 02/13/19 XL] Polymyxin B-Trimeth Sulf Ophth 1 drops LEFT EYE Q3H 7 Days #1 03/23/21 [Polytrim Opthalmic] bottle Allergies Allergy/AdvReac Type Severity Reaction Status Date / Time albuterol AdvReac LEG SPASMS Verified 07/25/21 02:01 Review of Systems ROS Statement: Those systems with pertinent positive or pertinent negative responses have been documented in the HPI. ROS Other: All systems not noted in ROS Statement are negative. Constitutional: Denies: fever, chills Respiratory: Reports: dyspnea. Denies: cough, wheezes, hemoptysis Cardiovascular: Reports: chest pain. Denies: palpitations, orthopnea, edema, syncope Gastrointestinal: Denies: abdominal pain, nausea, vomiting, diarrhea Genitourinary: Denies: dysuria, hematuria Musculoskeletal: Denies: back pain Skin: Denies: rash Neurological: Denies: headache, weakness Psychiatric: Denies: anxiety Past Medical History Past Medical History: Deep Vein Thrombosis (DVT), Hypertension, Osteoarthritis (OA), Pulmonary Embolus (PE) Additional Past Medical History / Comment(s): hx hiatal hernia,torn acl lt knee, KIDNEY STONES History of Any Multi-Drug Resistant Organisms: None Reported Past Surgical History: Joint Replacement, Orthopedic Surgery Additional Past Surgical History / Comment(s): 2 lt knee arthroscopy,rt knee arthroscopy,rt ankle took bone chip out,OR 5th digit lt hand fused bone together had pin in place-since removed,sinus, left knee replacement 07/29/16, deviated septum repair. Past Anesthesia/Blood Transfusion Reactions: No Reported Reaction Additional Past Anesthesia/Blood Transfusion Reaction / Comment(s): no hx blood transfusion Past Psychological History: No Psychological Hx Reported Smoking Status: Never smoker Past Alcohol Use History: None Reported Past Drug Use History: None Reported - Past Family History Father Family Medical History: Cancer Additional Family Medical History / Comment(s): prostate ca,pacemaker Mother Family Medical History: CVA/TIA General Exam Limitations: no limitations General appearance: alert, in no apparent distress Head exam: Present: atraumatic, normocephalic Eye exam: Present: normal appearance. Absent: scleral icterus, conjunctival injection Neck exam: Present: normal inspection Respiratory exam: Present: normal lung sounds bilaterally. Absent: respiratory distress, wheezes, rales, rhonchi, stridor Cardiovascular Exam: Present: regular rate, normal rhythm, normal heart sounds. Absent: systolic murmur, diastolic murmur, rubs, gallop GI/Abdominal exam: Present: soft. Absent: distended, tenderness, guarding, rebound, rigid, mass Extremities exam: Present: normal inspection, normal capillary refill. Absent: pedal edema, calf tenderness Back exam: Present: normal inspection Neurological exam: Present: alert Skin exam: Present: warm, dry, intact, normal color. Absent: rash Course Vital Signs 07/25/21 07/25/21 07/25/21 01:58 02:32 04:09 Temperature 98.6 F Pulse Rate 81 73 71 Respiratory 20 18 18 Rate Blood Pressure 170/80 127/72 142/72 O2 Sat by Pulse 98 98 97 Oximetry Medical Decision Making - Lab Data Result diagrams: 07/25/21 03:04 07/25/21 03:04 Lab Results 07/25/21 07/25/21 07/25/21 Range/Units 02:38 03:04 03:04 WBC 5.9 (3.8-10.6) k/uL RBC 4.86 (4.30-5.90) m/uL Hgb 15.4 (13.0-17.5) gm/dL Hct 45.8 (39.0-53.0) % MCV 94.2 (80.0-100.0) fL MCH 31.7 (25.0-35.0) pg MCHC 33.7 (31.0-37.0) g/dL RDW 13.2 (11.5-15.5) % Plt Count 205 (150-450) k/uL MPV 7.2 Neutrophils % 54 % Lymphocytes % 30 % Monocytes % 5 % Eosinophils % 7 % Basophils % 1 % Neutrophils # 3.2 (1.3-7.7) k/uL Lymphocytes # 1.8 (1.0-4.8) k/uL Monocytes # 0.3 (0-1.0) k/uL Eosinophils # 0.4 (0-0.7) k/uL Basophils # 0.1 (0-0.2) k/uL PT 10.1 (9.0-12.0) sec INR 0.9 (<1.2) APTT 22.9 (22.0-30.0) sec D-Dimer 0.36 (<0.60) mg/L FEU Sodium (137-145) mmol/L Potassium (3.5-5.1) mmol/L Chloride (98-107) mmol/L Carbon Dioxide (22-30) mmol/L Anion Gap mmol/L BUN (9-20) mg/dL Creatinine (0.66-1.25) mg/dL Est GFR (CKD-EPI)AfAm (>60 ml/min/1.73 sqM) Est GFR (CKD-EPI)NonAf (>60 ml/min/1.73 sqM) Glucose (74-99) mg/dL Calcium (8.4-10.2) mg/dL Total Bilirubin (0.2-1.3) mg/dL AST (17-59) U/L ALT (4-49) U/L Alkaline Phosphatase (38-126) U/L Troponin I (0.000-0.034) ng/mL NT-Pro-B Natriuret Pep 53 pg/mL Total Protein (6.3-8.2) g/dL Albumin (3.5-5.0) g/dL Coronavirus (PCR) (Not Detectd) 07/25/21 07/25/21 07/25/21 Range/Units 03:04 03:04 03:04 WBC (3.8-10.6) k/uL RBC (4.30-5.90) m/uL Hgb (13.0-17.5) gm/dL Hct (39.0-53.0) % MCV (80.0-100.0) fL MCH (25.0-35.0) pg MCHC (31.0-37.0) g/dL RDW (11.5-15.5) % Plt Count (150-450) k/uL MPV Neutrophils % % Lymphocytes % % Monocytes % % Eosinophils % % Basophils % % Neutrophils # (1.3-7.7) k/uL Lymphocytes # (1.0-4.8) k/uL Monocytes # (0-1.0) k/uL Eosinophils # (0-0.7) k/uL Basophils # (0-0.2) k/uL PT (9.0-12.0) sec INR (<1.2) APTT (22.0-30.0) sec D-Dimer (<0.60) mg/L FEU Sodium 140 (137-145) mmol/L Potassium 3.9 (3.5-5.1) mmol/L Chloride 107 (98-107) mmol/L Carbon Dioxide 27 (22-30) mmol/L Anion Gap 6 mmol/L BUN 17 (9-20) mg/dL Creatinine 0.88 (0.66-1.25) mg/dL Est GFR (CKD-EPI)AfAm >90 (>60 ml/min/1.73 sqM) Est GFR (CKD-EPI)NonAf 89 (>60 ml/min/1.73 sqM) Glucose 117 H (74-99) mg/dL Calcium 9.7 (8.4-10.2) mg/dL Total Bilirubin 0.7 (0.2-1.3) mg/dL AST 20 (17-59) U/L ALT 19 (4-49) U/L Alkaline Phosphatase 74 (38-126) U/L Troponin I <0.012 (0.000-0.034) ng/mL NT-Pro-B Natriuret Pep pg/mL Total Protein 6.7 (6.3-8.2) g/dL Albumin 4.0 (3.5-5.0) g/dL Coronavirus (PCR) Not Detected (Not Detectd) - EKG Data -: EKG Interpreted by [place] EKG shows normal: sinus rhythm, axis (Normal), intervals (Normal), ST-T waves (Normal) Rate: normal (Rate 66 bpm) Interpretation: other (Possible old anterior infarct.) Disposition Clinical Impression: Chest pain Disposition: ADMITTED IP TO THIS [facility] Condition: Fair Referrals: [facility],Clinic [Primary Care Provider] - 1-2 days
[2021-07-25] MEDS ORDERED: NITROGLYCERIN SL TABS 0.4 MG TAB SUBLINGUAL PRN (04:41)
[2021-07-25] MEDS ORDERED: traMADol 50 MG TAB PO PRN (05:00)
[2021-07-25] MEDS ORDERED: METOPROLOL SUCCINATE (ER) 50 MG TAB.ER.24H PO SCH (09:00)
--- NOTE | 2021-07-25 09:56 | P.CRDCN ---
History of Present Illness Consult date: 07/25/21 Chief complaint: Chest pain History of present illness: This is a very pleasant 66-year-old gentleman with no significant past medical history who was admitted to the hospital complaining of chest discomfort. He presented to the emergency department complaining of chest discomfort. He described the discomfort as sharp/dull in the middle of the chest without any radiation to the arms or neck or shoulders or back and without any associated s ymptoms of shortness of breath or sweating or dizziness or lightheadedness or any feeling of heart racing or fluttering or presyncope or syncope. He underwent a workup including cardiac enzymes came to be unremarkable and a chest x-ray which showed no acute abnormalities and also EKG showed sinus rhythm. He underwent a heart catheterization 2018 and that came in to be unremarkable. He underwent also a coin 2019 that came in to be unremarkable. This time the patient was ruled out for acute coronary syndrome and he seems to be chest pain- free at this point. His pressure was elevated when he presented to the hospital and continues to be elevated. I'm going to start him on Norvasc at this point. We'll schedule the patient to undergo an exercise treadmill stress test tomorrow morning. Past Medical History Past Medical History: Deep Vein Thrombosis (DVT), Hypertension, Osteoarthritis (OA), Pulmonary Embolus (PE) Additional Past Medical History / Comment(s): hx hiatal hernia,torn acl lt knee, KIDNEY STONES History of Any Multi-Drug Resistant Organisms: None Reported Past Surgical History: Joint Replacement, Orthopedic Surgery Additional Past Surgical History / Comment(s): 2 lt knee arthroscopy,rt knee arthroscopy,rt ankle took bone chip out,OR 5th digit lt hand fused bone together had pin in place-since removed,sinus, left knee replacement 07/29/16, deviated septum repair. fractured pelvis Past Anesthesia/Blood Transfusion Reactions: No Reported Reaction Additional Past Anesthesia/Blood Transfusion Reaction / Comment(s): no hx blood transfusion Past Psychological History: No Psychological Hx Reported Additional Psychological History / Comment(s): pt lives alone in apt. no steps to enter apt. no pets. has a cane/walker to use if needed. 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. Smoking Status: Former smoker Past Alcohol Use History: None Reported Additional Past Alcohol Use History / Comment(s): started smoking age 17(1971) smoked 1 to 1.5 ppd and quit 1993, while in drank but quit 1985 Past Drug Use History: None Reported - Past Family History Father Family Medical History: Cancer Additional Family Medical History / Comment(s): prostate ca,pacemaker Mother Family Medical History: CVA/TIA Medications and Allergies Home Medications Medication Instructions Recorded Confirmed Type Glucosam/Vernon-Msm1/C/Rei/Bosw 1 tab PO DAILY 07/25/21 07/25/21 History [Fgcvpywdshh-Epjsvmqxhhj-JDL Tb] Testosterone [Androgel 1.62% Gel 2 applic TOPICAL DAILY 07/25/21 07/25/21 History Pump] Allergies Allergy/AdvReac Type Severity Reaction Status Date / Time albuterol AdvReac LEG SPASMS Verified 07/25/21 08:16 Physical Exam Vitals: Vital Signs Temp Pulse Pulse Resp BP BP Pulse Ox 07/25/21 07:00 97.9 F 44 L 18 148/81 99 07/25/21 05:39 66 18 150/82 98 07/25/21 04:09 71 18 142/72 97 07/25/21 02:32 73 18 127/72 98 07/25/21 01:58 98.6 F 81 20 170/80 98 Intake and Output 07/24/21 07/25/21 07/25/21 22:59 06:59 14:59 Other: Weight 113.398 kg - Constitutional General appearance: no acute distress - Respiratory Respiratory: bilateral: CTA - Cardiovascular Rhythm: regular Results 07/25/21 03:04 07/25/21 03:04 Cardiac Enzymes 07/25/21 07/25/21 07/25/21 Range/Units 03:04 03:04 05:30 AST 20 (17-59) U/L Troponin I <0.012 <0.012 (0.000-0.034) ng/mL Coagulation 07/25/21 Range/Units 03:04 PT 10.1 (9.0-12.0) sec APTT 22.9 (22.0-30.0) sec CBC 07/25/21 Range/Units 03:04 WBC 5.9 (3.8-10.6) k/uL RBC 4.86 (4.30-5.90) m/uL Hgb 15.4 (13.0-17.5) gm/dL Hct 45.8 (39.0-53.0) % Plt Count 205 (150-450) k/uL Comprehensive Metabolic Panel 07/25/21 Range/Units 03:04 Sodium 140 (137-145) mmol/L Potassium 3.9 (3.5-5.1) mmol/L Chloride 107 (98-107) mmol/L Carbon Dioxide 27 (22-30) mmol/L BUN 17 (9-20) mg/dL Creatinine 0.88 (0.66-1.25) mg/dL Glucose 117 H (74-99) mg/dL Calcium 9.7 (8.4-10.2) mg/dL AST 20 (17-59) U/L ALT 19 (4-49) U/L Alkaline Phosphatase 74 (38-126) U/L Total Protein 6.7 (6.3-8.2) g/dL Albumin 4.0 (3.5-5.0) g/dL Current Medications Generic Name Dose Route Start Last Admin Trade Name Arunq PRN Reason Stop Dose Admin Amlodipine Besylate 5 mg 07/26/21 09:00 Amlodipine 5 Mg Tab PO DAILY DENNIS Aspirin 325 mg 07/26/21 09:00 Aspirin 325 Mg Tab PO DAILY DENNIS Nitroglycerin 0.4 mg 07/25/21 04:41 Nitroglycerin Sl Tabs 0.4 Mg Tab SUBLINGUAL Q5M PRN Chest Pain Sodium Chloride 10 ml 07/25/21 09:00 Sodium Chloride 0.9% Flush 10 Ml Syringe IV BID DENNIS Tramadol HCl 100 mg 07/25/21 05:00 Tramadol 50 Mg Tab PO BID PRN Pain Intake and Output 07/24/21 07/25/21 07/25/21 22:59 06:59 14:59 Other: Weight 113.398 kg 07/25/21 03:04 07/25/21 03:04 Assessment and Plan Assessment: Assessment #1 atypical chest discomfort #2 hypertension Plan #1 acute coronary event was ruled out #2 avoid any AV raven pauly agents in view of the bradycardia #3 start the patient on Norvasc for blood pressure control #4 obtain an exercise treadmill stress test tomorrow
--- NOTE | 2021-07-25 16:55 | P.HPIM ---
History of Present Illness H&P Date: 07/25/21 Chief Complaint: Shortness of breath/chest pain 66-year-old man, with history of hypertension, DVT/PE who presents with chest tightness and dyspnea area patient states that the symptoms had come on early Monday morning, approximately 1 AM while he was at work. Patient states that he left work, and went home to rest. The symptoms recurred and the following nights tonight as well. The patient states that the symptoms are somewhat reminiscent previous episode of pulmonary embolism that he had. He notes that he is not currently taking any anticoagulant. No diaphoresis, nausea vomiting, palpitations or lightheadedness. Workup completed in ED including labs revealed WBC 5.9, hemoglobin 15.4, platelet count of 205, sodium 140, potassium 3.9, BUN/creatinine of 17/0.88, troponin of 0.012, BNP is negative and wayne virus PCR is negative EKG shows normal: sinus rhythm, axis (Normal), intervals (Normal), ST-T waves (Normal) Review of Systems REVIEW OF SYSTEMS: CONSTITUTIONAL: No fever, no malaise, no fatigue. HEENT: No recent visual problems or hearing problems. Denied any sore throat. CARDIOVASCULAR: chest pain, orthopnea, PND, no palpitations, no syncope. PULMONARY: No shortness of breath, no cough, no hemoptysis. GASTROINTESTINAL: No diarrhea, no nausea, no vomiting, no abdominal pain. NEUROLOGICAL: No headaches, no weakness, no numbness. HEMATOLOGICAL: Denies any bleeding or petechiae. GENITOURINARY: Denies any burning micturition, frequency, or urgency. MUSCULOSKELETAL/RHEUMATOLOGICAL: Denies any joint pain, swelling, or any muscle pain. ENDOCRINE: Denies any polyuria or polydipsia. The rest of the 14-point review of systems is negative. Past Medical History Past Medical History: Deep Vein Thrombosis (DVT), Hypertension, Osteoarthritis (OA), Pulmonary Embolus (PE) Additional Past Medical History / Comment(s): hx hiatal hernia,torn acl lt knee, KIDNEY STONES History of Any Multi-Drug Resistant Organisms: None Reported Past Surgical History: Joint Replacement, Orthopedic Surgery Additional Past Surgical History / Comment(s): 2 lt knee arthroscopy,rt knee arthroscopy,rt ankle took bone chip out,OR 5th digit lt hand fused bone together had pin in place-since removed,sinus, left knee replacement 07/29/16, deviated septum repair. fractured pelvis Past Anesthesia/Blood Transfusion Reactions: No Reported Reaction Additional Past Anesthesia/Blood Transfusion Reaction / Comment(s): no hx blood transfusion Past Psychological History: No Psychological Hx Reported Additional Psychological History / Comment(s): pt lives alone in apt. no steps to enter apt. no pets. has a cane/walker to use if needed. 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 [employer]. Smoking Status: Former smoker Past Alcohol Use History: None Reported Additional Past Alcohol Use History / Comment(s): started smoking age 17(1971) smoked 1 to 1.5 ppd and quit 1993, while in drank but quit 1985 Past Drug Use History: None Reported - Past Family History Father Family Medical History: Cancer Additional Family Medical History / Comment(s): prostate ca,pacemaker Mother Family Medical History: CVA/TIA Medications and Allergies Home Medications Medication Instructions Recorded Confirmed Type Glucosam/Vernon-Msm1/C/Rei/Bosw 1 tab PO DAILY 07/25/21 07/25/21 History [Azrzjqojkbt-Lcnbovplosg-OAH Tb] Testosterone [Androgel 1.62% Gel 2 applic TOPICAL DAILY 07/25/21 07/25/21 History Pump] Allergies Allergy/AdvReac Type Severity Reaction Status Date / Time albuterol AdvReac LEG SPASMS Verified 07/25/21 08:16 Physical Exam Vitals: Vital Signs Temp Pulse Pulse Resp BP BP Pulse Ox 07/25/21 14:05 98.1 F 64 16 109/71 94 L 07/25/21 07:00 97.9 F 44 L 18 148/81 99 07/25/21 05:39 66 18 150/82 98 07/25/21 04:09 71 18 142/72 97 07/25/21 02:32 73 18 127/72 98 07/25/21 01:58 98.6 F 81 20 170/80 98 Intake and Output 07/25/21 07/25/21 07/25/21 06:59 14:59 22:59 Intake Total 118 Balance 118 Intake: Oral 118 Other: Voiding Method Toilet # Voids 3 # Bowel Movements 1 Weight 113.398 kg General appearance: alert, in no apparent distress Head exam: Present: atraumatic, normocephalic Eye exam: Present: normal appearance. Absent: scleral icterus, conjunctival injection Neck exam: Present: normal inspection Respiratory exam: Present: normal lung sounds bilaterally. Absent: respiratory distress, wheezes, rales, rhonchi, stridor Cardiovascular Exam: Present: regular rate, normal rhythm, normal heart sounds. Absent: systolic murmur, diastolic murmur, rubs, gallop GI/Abdominal exam: Present: soft. Absent: distended, tenderness, guarding, rebound, rigid, mass Extremities exam: Present: normal inspection, normal capillary refill. Absent: pedal edema, calf tenderness Back exam: Present: normal inspection Neurological exam: Present: alert Skin exam: Present: warm, dry, intact, normal color. Absent: rash Results CBC & Chem 7: 07/25/21 03:04 07/25/21 03:04 Labs: Abnormal Lab Results - Last 24 Hours (Table) 07/25/21 Range/Units 03:04 Glucose 117 H (74-99) mg/dL Thrombosis Risk Factor Assmnt - Choose All That Apply Other Risk Factors: Yes Each Risk Factor Represents 2 Points: Age 61-74 years Each Risk Factor Represents 3 Points: History of DVT/PE Other congenital or acquired thrombophilia - If yes, enter type in comment: No Thrombosis Risk Factor Assessment Total Risk Factor Score: 5 Thrombosis Risk Factor Assessment Level: High Risk Assessment and Plan Assessment: 1. Chest pain; atypical; ACS rule out - Patient has been evaluated by cardiology and is recommended an exercise treadmill stress test which will be done tomorrow; patient did have episodes of bradycardia; cardiology recommending to discontinue AV raven blocking agents; patient is started on Norvasc 5 mg daily 2. Uncontrolled hypertension; Norvasc 5 mg daily; we will monitor blood pressure closely and make further adjustments as needed 3. History of DVT/PE; currently not on any anticoagulation therapy DVT prophylaxis; SCDs/subcu heparin CODE STATUS; full code
[2021-07-26] MEDS ORDERED: ASPIRIN 325 MG TAB PO SCH (09:00)
[2021-07-26] MEDS ORDERED: ASPIRIN 81 MG PO SCH (09:00)
[2021-07-26] MEDS ORDERED: amLODIPine 5 MG TAB PO SCH (09:00)
[2021-07-26 09:06] LABS: Chol/HDL Ratio 3.02 Ratio; LDL Cholesterol,Calculated 72.1 mg/dL (0.0-131.0)
--- NOTE | 2021-07-26 10:11 | P.PN ---
Subjective Progress Note Date: 07/26/21 HISTORY OF PRESENT ILLNESS: This is a very pleasant 66-year-old gentleman with no significant past medical history who was admitted to the hospital complaining of chest discomfort. He presented to the emergency department complaining of chest discomfort. He described the discomfort as sharp/dull in the middle of the chest without any radiation to the arms or neck or shoulders or back and without any associated symptoms of shortness of breath or sweating or dizziness or lightheadedness or any feeling of heart racing or fluttering or presyncope or syncope. He underwent a workup including cardiac enzymes came to be unremarkable and a chest x-ray which showed no acute abnormalities and also EKG showed sinus rhythm. He underwent a heart catheterization 2018 and that came in to be unremarkable. He underwent also a coin 2018 that came in to be unremarkable. This time the patient was ruled out for acute coronary syndrome and he seems to be chest pain- free at this point. His pressure was elevated when he presented to the hospital and continues to be elevated. I'm going to start him on Norvasc at this point. We'll schedule the patient to undergo an exercise treadmill stress test tomorrow morning. 07/26/2021 Patient examined this morning at the bedside. Patient denies chest pain or pressure. He denies shortness of breath. Patient was started on Norvasc yesterday. Blood pressure this morning 151/79. He is on room air with oxygen saturations greater then 92%. PHYSICAL EXAM: VITAL SIGNS: Reviewed. GENERAL: Well-developed in no acute distress. NECK: Supple. No JVD or thyromegaly LUNGS: Respirations even and unlabored. Lungs essentially clear to auscultation bilaterally. HEART: Regular rate and rhythm. S1 and S2 heard. EXTREMITIES: Normal range of motion. No clubbing or cyanosis. Peripheral pulses intact. No lower extremity edema ASSESSMENT: Atypical chest pain, troponins negative 3 Hypertension PLAN: Continue current cardiac medications Obtain 2-D echo to assess cardiac structure and function Patient to undergo exercise stress test today. If stress test is negative and echo cardiac echocardiogram does not reveal any significant abnormalities, patient may be discharged home today from a cardiac standpoint and follow-up in office with Dr. Rocha Nurse practitioner note has been reviewed by physician. Signing provider agrees with the documented findings, assessment, and plan of care. Objective - Vital Signs Vital signs: Vital Signs Temp 97.4 F L 07/26/21 07:00 Pulse 63 07/26/21 07:00 Resp 17 07/26/21 07:00 BP 151/79 07/26/21 07:00 Pulse Ox 97 07/26/21 07:00 Intake & Output 07/25/21 07/26/21 07/26/21 18:59 06:59 18:59 Intake Total 236 Balance 236 Intake: Oral 236 Other: Voiding Method Toilet Toilet Toilet # Voids 3 2 # Bowel Movements 1 - Labs CBC & Chem 7: 07/25/21 03:04 07/25/21 03:04 Labs: Abnormal Lab Results - Last 24 Hours (Table) 07/26/21 Range/Units 04:23 Triglycerides 161.00 H (0.00-149.00) mg/dL
[2021-07-26] MEDS ORDERED: DOBUTamine DRIP for NUC MED 500 MG in DEXTROSE/WATER 1 250ML.BAG IV PRN (11:30)
[2021-07-26] MEDS ORDERED: DOBUTamine DRIP for NUC MED 500 MG/250 ML BAG IV ONE (11:50)
--- NOTE | 2021-07-26 11:56 | EST ---
EXERCISE STRESS AGE: 66 SEX: M HT: 6'4"` WT: 250 lbs. PROTOCOL: Prasanna STAGE: 2 DURATION OF EXERCISE: 5:59 HEART RATE REST: 66 BLOOD PRESSURE REST: 140/76 MAXIMUM HEART RATE ACHIEVED: 113 MAXIMUM BLOOD PRESSURE: 181/75 85% MPHR: 130 100% MPHR: 153 METS: 7.1 INDICATIONS: Chest pain. CLINICAL INFORMATION: Baseline EKG shows sinus rhythm with poor R-wave progression. Patient exercised on Prasanna protocol for a total of 6 minutes, achieving 7 METS, 74% of predicted maximum heart rate without chest pain or diagnostic ST-segment depression. CONCLUSIONS: 1. Average exercise tolerance. 2. Inconclusive EKG part of the stress test due to inability to attain target heart rate. MMODL / IJN: [id number] /
--- NOTE | 2021-07-26 12:57 | ECHOF ---
Referral Reason:LV function, chest pain MEASUREMENTS -------- HEIGHT: 188.0 cm WEIGHT: 113.4 kg BP: RVIDd: 3.6 cm (< 3.3) IVSd: 1.1 cm (0.6 - 1.1) LVIDd: 5.3 cm (3.9 - 5.3) LVPWd: 1.2 cm (0.6 - 1.1) IVSs: 1.5 cm LVIDs: 4.0 cm LVPWs: 1.5 cm LAESV Index (A-L): 37.36 ml/m Ao Diam: 3.0 cm (2.0 - 3.7) AV Cusp: 1.9 cm (1.5 - 2.6) LA Diam: 4.4 cm (2.7 - 3.8) MV EXCURSION: 22.907 mm (> 18.000) MV EF SLOPE: 81 mm/s (70 - 150) EPSS: 0.3 cm MV E Javi: 0.68 m/s MV DecT: 255 ms MV A Javi: 0.82 m/s MV E/A Ratio: 0.82 RAP: 5.00 mmHg RVSP: 31.56 mmHg FINDINGS -------- Sinus rhythm. This was a technically good study. LV size, wall thickness and systolic function are normal, with an EF greater than 55%. The left anika tricular size is normal. The right ventricle is normal in size. LA is moderately dilated 34-39 ml/m2 The right atrial size is normal. There is mild aortic valve sclerosis. There is no evidence of aortic regurgitation. Mild mitral regurgitation is present. Mild tricuspid regurgitation present. Right ventricular systolic pressure is normal at < 35 mmHg. There is no pulmonic regurgitation present. There is no pericardial effusion. CONCLUSIONS -------- 1. LV size, wall thickness and systolic function are normal, with an EF greater than 55%. 2. The left ventricular size is normal. 3. The right ventricle is normal in size. 4. LA is moderately dilated 34-39 ml/m2 5. The right atrial size is normal. 6. There is mild aortic valve sclerosis. 7. Mild mitral regurgitation is present. 8. Mild tricuspid regurgitation present. 9. There is no pulmonic regurgitation present. 10. There is no pericardial effusion. WAISTLINE JOINER LOCKSTITCH: Rosario Irvin RDCS
[2021-07-26] MEDS ORDERED: RX INFO: IV CONTRAST WAS GIVEN 1 EACH MISC MISCELLANE PRN (13:18)
[2021-07-26 13:30] VITALS: BP 156/89; PULSE 70; RESP 18; TEMP 98.6
--- NOTE | 2021-07-26 15:09 | CT ---
EXAMINATION TYPE: CT chest w con DATE OF EXAM: 07/26/2021 COMPARISON: 05/11/2017 HISTORY: 66-year-old male right shoulder numbness TECHNIQUE: Contiguous axial scanning of the chest after the administration of 100 mL of Isovue 300. Coronal/sagittal reconstructions performed. CT DLP: 584.9mGycm. Automatic exposure control utilized for a dose reduction. FINDINGS: Heart normal size without pericardial effusion. Mild circumflex coronary artery calcifications are pr esent. Mild ectasia of the descending thoracic aorta 3.0 cm. Mild atherosclerotic arch calcifications with c onventional arch vessel branching anatomy. Scattered nonenlarged mediastinal lymph nodes measuring up to 8 mm. No thoracic lymphadenopathy by CT size criteria. Prominent hazy densities along the dependent portion of the lower lobes, likely areas of atelectasis. No karie consolidation or pleural effusion. Small hiatal hernia. Visualized upper abdomen shows a 2.7 cm cyst posterior left kidney. Moderate sto ol burden. Bones: Degenerative changes at the sternoclavicular joints, left greater than right. [facility] in the mid to lower thoracic spine. IMPRESSION: 1. Sternoclavicular joint OA, right greater than left. 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 Right shoulder reported separately. 2. Prominent hazy densities along the dependent portion of the lower lobes, likely areas of subsegmen jhonatan atelectasis. 3. Small hiatal hernia.
--- NOTE | 2021-07-26 15:14 | CT ---
EXAMINATION TYPE: CT shoulder RT w con DATE OF EXAM: 07/26/2021 COMPARISON: None HISTORY: 66-year-old male right shoulder pain and numbness TECHNIQUE: Contiguous axial scanning of the right shoulder performed with IV Contrast, patient inject ed with 100 mL of Isovue 300. Coronal/sagittal reconstructions performed. CT DLP: 584.9 mGycm Automated exposure control for dose reduction was used. FINDINGS: There is mild degenerative spurring at the glenohumeral joint. No significant joint effusion. No atrophy of the rotator cuff musculature. Moderate to severe degenerative change at the acromioclavicular joint with inferior spurring abutting the underlying cuff. No significant effusion within the subacromial/subdeltoid bursa. No os acromiale or Hill-Sachs deformity. No acute fracture, subluxation, dislocation. IMPRESSION: 1. MILD DEGENERATIVE CHANGE AT THE GLENOHUMERAL JOINT AND MODERATE TO SEVERE DEGENERATIVE CHANGE AT T HE ACROMIOCLAVICULAR JOINT. 2. NO JOINT EFFUSION OR ACUTE OSSEOUS ABNORMALITY SEEN.
--- NOTE | 2021-07-26 15:44 | ECHOS ---
STRESS ECHOCARDIOGRAM INDICATIONS: Chest pain. BASELINE HEART RATE: 68 BASELINE BLOOD PRESSURE: 128/66 MAXIMUM HEART RATE: 136 MAXIMUM BLOOD PRESSURE: 181/57 85% MPHR: 130 100% MPHR: 153 METS: NA MAXIMUM STAGE REACHED: 3 TOTAL EXERCISE TIME: 7:57 infusion time CLINICAL INFORMATION: Baseline EKG shows sinus rhythm, normal axis, normal intervals. Patient was given intravenous dobutamine over a period of 8 minutes as per protocol, achieving 89% of predicted maximum heart rate without chest pain. At peak exercise there was [address]- segment depression noted in the inferolateral leads. Baseline echo shows normal left ventricular size, wall motion and systolic function. Post dobutamine infusion there is normal hyperdynamic response of all segments of myocardium noted. CONCLUSION: 1. stress test by EKG criteria. 2. Negative dobutamine stress echo. BARBARA / ILYAN: [id number] /
--- NOTE | 2021-07-27 09:21 | P.DS ---
Providers Date of admission: 07/25/21 04:41 Expected date of discharge: 07/26/21 Attending physician: Brianna Dill Consults: 07/25/21 04:41 Consult Physician Routine Consulting Provider: Washington Claros Consult Reason/Comments: chest pain Do you want consulting provider notified?: Yes Primary care physician: [facility] Hospital Course: Final diagnosis Chest pain, atypical, ACS ruled out Uncontrolled hypertension History of DVT/PE Osteoarthritis DVT prophylaxis Full code Discharge disposition Patient is being discharged in a stable condition with guarded prognosis to home. Patient will follow-up with the [facility] in the outpatient setting upon discharge. Patient is to follow-up with cardiology Dr. Rocha and recommend pulmonary consult in the outpatient setting and resources provided. Total time taken is greater than 35 minutes. Hospital course This is a 66-year-old male who came to the emergency department and admitted for chest tightness and dyspnea that had been getting worse in the outpatient setting. Patient being closely monitored and evaluated by cardiology and underwent echo and stress which was negative for any induced ischemia and 2-D echo showed LV systolic function is normal with an EF greater than 55% with some mild mitral and tricuspid regurgitation present. Patient also continued with right shoulder pain and underwent shoulder CT some degenerative joint changes at the acromioclavicular joint with no joint effusion or acute osseous abnormality noted. Chest CT showed sternoclavicular joint osteoarthritis. Recommend outpa tient follow-up with orthopedics along with pulmonary for further testing. Resources provided as patient may require referral as [facility]. Currently no reports of chest pain, shortness of breath, or palpitations. Patient is afebrile. No reports of nausea or vomiting and patient is tolerating diet. Patient will be discharged home today. Guarded prognosis. On exam vital signs are stable. Cardio S1, S2 are muffled. Respiratory system shows diminished breath sounds at the bases with no wheezing or rhonchi noted. Abdomen is soft and nontender. Nervous system shows no focal deficits. Please refer to medication reconciliation sheet for a list of medications. Patient Condition at Discharge: Fair Plan - Discharge Summary Discharge Rx Participant: No New Discharge Prescriptions: New Aspirin 81 mg PO DAILY #30 tab amLODIPine [Norvasc] 5 mg PO DAILY #30 tab Continue Testosterone [Androgel 1.62% Gel Pump] 2 applic TOPICAL DAILY Glucosam/Vernon-Msm1/C/Rei/Bosw [Taokqdyvizp-Mexwzdbydkg-STM Tb] 1 tab PO DAILY Discharge Medication List Glucosam/Vernon-Msm1/C/Rei/Bosw [Zgdpftqgwwf-Ntvuccidxog-EVJ Tb] 1 tab PO DAILY 07/25/21 [History] Testosterone [Androgel 1.62% Gel Pump] 2 applic TOPICAL DAILY 07/25/21 [History] Aspirin 81 mg PO DAILY #30 tab 07/26/21 [Rx] amLODIPine [Norvasc] 5 mg PO DAILY #30 tab 07/26/21 [Rx] Follow up Appointment(s)/Referral(s): Jerod Rocha MD [STAFF PHYSICIAN] - 1 Week Valentina Varela MD [STAFF PHYSICIAN] - 2 Weeks [facility] [Primary Care Provider] - 1-2 days Patient Instructions/Handouts: Chest Pain (DC) Activity/Diet/Wound Care/Special Instructions: Activity Limited until follow-up Follow-up with primary care provider on discharge Follow-up cardiology as discussed in one week May need outpatient follow-up with pulmonary after discussing with primary care provider Continue medications as prescribed Continue heart healthy diet Discharge/Stand Alone Forms: Work/School Release Discharge Disposition: HOME SELF-CARE
== END 2021-07-26 16:12 | disposition home or self-care (01) ==
LOC: EC 01:51 → 6NMEDSUR 04:41
PROVIDERS: ADMIT Hospitalist; ATTEND Hospitalist
DX: R07.89 Other chest pain (principal); R06.02 Shortness of breath; R06.00 Dyspnea, unspecified; R00.1 Bradycardia, unspecified; R20.0 Anesthesia of skin; I10 Essential (primary) hypertension; I08.3 Combined rheumatic disorders of mitral, aortic and tricuspid valves; M19.011 Primary osteoarthritis, right shoulder; K44.9 Diaphragmatic hernia without obstruction or gangrene; Z20.822 Contact with and (suspected) exposure to COVID-19; Z86.711 Personal history of pulmonary embolism; Z86.718 Personal history of other venous thrombosis and embolism; Z87.442 Personal history of urinary calculi; Z96.652 Presence of left artificial knee joint; Z87.891 Personal history of nicotine dependence; Z79.1 Long term (current) use of non-steroidal anti-inflammatories (NSAID); Z88.8 Allergy status to other drugs, medicaments and biological substances; Z80.42 Family history of malignant neoplasm of prostate; Z82.49 Family history of ischemic heart disease and other diseases of the circulatory system; Z82.3 Family history of stroke
CPT/HCPCS: 99285; 36415; 93005; 93017; 93306; 93351; 85379; 83880; 80061; 80053; 84484; 85025; 85610; 85730; 87635; 71046; 71260; 73201; G0378 ×2; J1250; Q9967

== ENCOUNTER → 2021-12-20 | Outpatient (CLI) | payer MEDICARE, OTHER ==
--- NOTE | 2021-12-20 13:30 | US ---
EXAMINATION TYPE: US venous doppler duplex LE DATE OF EXAM: 12/20/2021 1:10 PM COMPARISON: US February 12, 2019 CLINICAL HISTORY: I82.890 DVT. History of DVT, patient on blood thinners SIDE PERFORMED: Bilateral TECHNIQUE: The lower extremity deep venous system is examined utilizing real time linear array sonog hanny with graded compression, doppler sonography and color-flow sonography. VESSELS IMAGED: Common Femoral Vein Deep Femoral Vein Greater Saphenous Vein * Femoral Vein Popliteal Vein Small Saphenous Vein * Proximal Calf Veins (* superficial vessels) Right Leg: Appears negative for DVT Left Leg: Minimal flow seen within anterior proximal calf vein, not able to fully compressed Grayscale, color doppler, spectral doppler imaging performed of the deep veins of the bilateral lower extremities. Towards end of the study there is incomplete compression with absent color flow consis tent with DVT below the knee in the left lower extremity. IMPRESSION: DVT is present possibly acute in the left proximal calf vein below the knee.
== END | disposition home or self-care (01) ==
LOC: RADUSWWP 12:34
PROVIDERS: ATTEND Internal Medicine Hematology & Oncology
DX: I82.890 Acute embolism and thrombosis of other specified veins (principal); Z79.01 Long term (current) use of anticoagulants; Z86.718 Personal history of other venous thrombosis and embolism
CPT/HCPCS: 93970

== ENCOUNTER → 2022-03-03 | Outpatient (CLI) | payer OTHER ==
--- NOTE | 2022-03-03 12:57 | US ---
EXAMINATION TYPE: US venous doppler duplex LE LT DATE OF EXAM: 03/03/2022 12:46 PM COMPARISON: US 12/20/21 CLINICAL HISTORY: I82.890 dvt. Hx DVT. Patient is on Eliquis. Hx left knee joint replaced. SIDE PERFORMED: Left TECHNIQUE: The lower extremity deep venous system is examined utilizing real time linear array sonog hanny with graded compression, doppler sonography and color-flow sonography. VESSELS IMAGED: Common Femoral Vein Deep Femoral Vein Greater Saphenous Vein * Femoral Vein Popliteal Vein Small Saphenous Vein * Proximal Calf Veins (* superficial vessels) Left Leg: There appear to be internal echoes within anterior calf vein. Vessel does not appear to c ompress completely. Color defect seen. IMPRESSION: Suspected deep vein thrombus of the left calf pain similar in location on 12/20/2021.
== END | disposition home or self-care (01) ==
LOC: RADUSWWP 12:13
PROVIDERS: ATTEND Internal Medicine Hematology & Oncology
DX: I82.890 Acute embolism and thrombosis of other specified veins (principal)

== ENCOUNTER 2023-02-20 21:33 | Emergency (ER) | payer OTHER ==
[2023-02-20 21:39] VITALS: BP 158/92; PULSE 71; RESP 18; TEMP 99
--- NOTE | 2023-02-20 22:19 | XR ---
EXAMINATION TYPE: XR ribs LT DATE OF EXAM: 02/20/2023 10:02 PM INDICATION: Patient age:Male; 67 years old; Reason for study: pain; COMPARISON: None TECHNIQUE: Frontal and oblique views of the left ribs with frontal chest radiograph. FINDINGS: The ribs have a normal appearance. No evidence of fracture. Overall, the lungs are clear. The cardiac silhouette is normal in size. The remaining osseous structures are intact. IMPRESSION: No acute osseous pathology.
--- NOTE | 2023-02-20 22:25 | ED ---
General Adult HPI - General Source: patient Mode of arrival: ambulatory Limitations: no limitations <Sandra Herrera - Last Filed: 02/20/23 22:24> - General Source: patient, RN notes reviewed, old records reviewed <Miguel Contreras - Last Filed: 02/21/23 06:25> - General Chief complaint: Recheck/Abnormal Lab/Rx Stated complaint: Ribcage pain Time Seen by Provider: 02/20/23 22:24 - History of Present Illness Initial comments: 67-year-old male with significant past medical history presents the emergency department with chief complaint of left sided rib pain. Patient reports that he fell on onto a CVA in his car when he was cleaning it. He denies hitting his head, loss of consciousness denies anticoagulant use. Patient denies shortness of breath (Sandra Herrera) Patient is a 67-year-old male who presents emergency Department with left-sided rib pain after injuring it while cleaning his car on Monday. This was 3 days ago. States that he struck it on before meals tenderness car very hard. It is located over the left anterior chest is with the pains. States it seemed to be getting worse which is why he presents for evaluation. Denies cough. Denies fevers. Denies chills. Denies any other acute complaints. Pain is worse with palpation, deep inspiration, movement of his left arm. Presents for further evaluation at this time. He was originally seen as a quick note. Chest x-ray was already ordered and completed by the time evaluated the patient in [facility]. (Miguel Contreras) - Related Data Home Medications Medication Instructions Recorded Confirmed Glucosam/Vernon-Msm1/C/Rei/Bosw 1 tab PO DAILY 07/25/21 07/25/21 [Osnopviydbi-Yefkxrrnkrr-WES Tb] Testosterone [Androgel 1.62% Gel 2 applic TOPICAL DAILY 07/25/21 07/25/21 Pump] Previous Rx's Medication Instructions Recorded Aspirin 81 mg PO DAILY #30 tab 07/26/21 amLODIPine [Norvasc] 5 mg PO DAILY #30 tab 07/26/21 Allergies Allergy/AdvReac Type Severity Reaction Status Date / Time No Known Allergies Allergy Verified 02/20/23 21:39 Review of Systems ROS Other: All systems not noted in ROS Statement are negative. <Sandra Herrera - Last Filed: 02/20/23 22:24> ROS Other: All systems not noted in ROS Statement are negative. <Miguel Contreras - Last Filed: 02/21/23 06:25> ROS Statement: Those systems with pertinent positive or pertinent negative responses have been documented in the HPI. Review of Systems: CONST: Denies fever EYES: Denies blurry vision ENT: Denies nasal congestion C/V: Denies Chest pain RESP: Denies shortness of breath GI: Denies abdominal pain : Denies dysuria SKIN: Denies rash. MSK: Endorses chest wall pain NEURO: Denies headache (Miguel Contreras) Past Medical History Past Medical History: Deep Vein Thrombosis (DVT), Hypertension, Osteoarthritis (OA), Pulmonary Embolus (PE) Additional Past Medical History / Comment(s): hx hiatal hernia,torn acl lt knee, KIDNEY STONES History of Any Multi-Drug Resistant Organisms: None Reported Past Surgical History: Joint Replacement, Orthopedic Surgery Additional Past Surgical History / Comment(s): 2 lt knee arthroscopy,rt knee arthroscopy,rt ankle took bone chip out,OR 5th digit lt hand fused bone together had pin in place-since removed,sinus, left knee replacement 07/29/16, deviated septum repair. fractured pelvis Past Anesthesia/Blood Transfusion Reactions: No Reported Reaction Additional Past Anesthesia/Blood Transfusion Reaction / Comment(s): no hx blood transfusion Past Psychological History: No Psychological Hx Reported Smoking Status: Former smoker Past Alcohol Use History: Occasional Past Drug Use History: None Reported - Past Family History Father Family Medical History: Cancer Additional Family Medical History / Comment(s): prostate ca,pacemaker Mother Family Medical History: CVA/TIA <Sandra Herrera - Last Filed: 02/20/23 22:24> General Exam Limitations: no limitations <Sandra Herrera - Last Filed: 02/20/23 22:24> <Miguel Contreras - Last Filed: 02/21/23 06:25> - General Exam Comments Initial Comments: Visual Physical Exam Vital signs reviewed General: Well-appearing, nontoxic, no acute distress. Head: Normocephalic, atraumatic Eyes: PERRLA, EOMI ENT: Airway patent Chest: Nonlabored breathing Skin: No visual rash, normal skin tone Neuro: Alert and oriented 3 Musculoskeletal: No gross abnormalities (Sandra Herrera) General: Appears in no acute distress. HEAD: Normal with no signs of head trauma. EYES: EOMI. ENT: Hearing grossly intact. RESPIRATORY: No respiratory distress. C/V: Regular rate and rhythm. ABD: Abdomen is nondistended. EXT: Tenderness to palpation over the left anterior ribs in the inferior aspect with no obvious deformities palpated. No bruising. Worse with movement of the left arm and with twisting of the torso. SKIN: No rashes or lesions observed on exposed skin. NEURO: Alert and oriented. (Miguel Contreras) Course Vital Signs 02/20/23 21:35 Temperature 99 F Pulse Rate 71 Respiratory 18 Rate Blood Pressure 158/92 O2 Sat by Pulse 96 Oximetry Medical Decision Making <Miguel Contreras - Last Filed: 02/21/23 06:25> - Medical Decision Making Was pt. sent in by a medical professional or institution (, PA, LANDSCAPE ARTIST, urgent care, hospital, or assisted...) When possible be specific @ -No Did you speak to anyone other than the patient for history (EMS, parent, family, police, friend...)? What history was obtained from this source @ -No Did you review nursing and triage notes (agree or disagree)? Why? @ -I reviewed and agree with nursing and triage notes Were old charts reviewed (outside hosp., previous admission, EMS record, old EKG, old radiological studies, urgent care reports/EKG's, assisted records)? Report findings @ -No old charts were reviewed Differential Diagnosis (chest pain, altered mental status, abdominal pain women, abdominal pain men, vaginal bleeding, weakness, fever, dyspnea, syncope, headache, dizziness, GI bleed, back pain, seizure, CVA, palpatations, mental health, musculoskeletal)? @ -Rib fracture, rib contusion, pneumothorax. This is not all inclusive. EKG interpreted by me (3pts min.). @ -As above X-rays interpreted by me (1pt min.). @ -Chest x-ray reveals no evidence of pneumothorax, no obvious acute rib injury. CT interpreted by me (1pt min.). @ -None done U/S interpreted by me (1pt. min.). @ -None done What testing was considered but not performed or refused? (CT, X-rays, U/S, labs)? Why? @ -None What meds were considered but not given or refused? Why? @ -I did offer the patient analgesic medications which were declined. He did accept a lidocaine patch. Did you discuss the management of the patient with other professionals (professionals i.e. , PA, LANDSCAPE ARTIST, lab, RT, psych nurse, health social work professor, import manager, teacher, information systems security officer, case consultant)? Give summary @ -No Was smoking cessation discussed for >3mins.? @ -No Was critical care preformed (if so, how long)? @ -No Were there social determinants of health that impacted care today? How? (Homelessness, low income, unemployed, alcoholism, drug addiction, transporta tion, low edu. Level, literacy, decrease access to med. care, shelter, rehab)? @ -No Was there de-escalation of care discussed even if they declined (Discuss DNR or withdrawal of care, Hospice)? DNR status @ -No What co-morbidities impacted this encounter? (DM, HTN, Smoking, COPD, CAD, Cancer, CVA, ARF, Chemo, Hep., AIDS, mental health diagnosis, sleep apnea, morbid obesity)? @ -None Was patient admitted / discharged? Hospital course, mention meds given and route, prescriptions, significant lab abnormalities, going to OR and other pertinent info. @ -Based on the patient's presentation and physical exam, I'm concerned for chest wall injury. I evaluated the patient after x-ray was completed. Revealed no obvious rib injury. I did discuss this with the patient. I believe he likely has rib contusions. He was in agreement with this assessment. He declines analgesic medications but does accept a lidocaine patch. Declines any prescriptions. Patient will be provided with an incentive spirometer prior to discharge as well as instructions on the use it. Strict return precautions discussed. He was in agreement with this plan. Vital signs are within acceptable limits. I instructed the patient to follow up with their PCP in the next 1-3 days. I explained that the patient should return to the emergency department if they experience any worsening symptoms. Strict return precautions were discussed with the patient. The patient expressed understanding of these instructions. I answered all questions that the patient had. The patient was discharged home in good condition with their prescriptions and follow up information. Undiagnosed new problem with uncertain prognosis? @ -No Drug Therapy requiring intensive monitoring for toxicity (Heparin, Nitro, Insulin, Cardizem)? @ -No Were any procedures done? @ -No Diagnosis/symptom? @ -Rib contusion Acute, or Chronic, or Acute on Chronic? @ -Acute Uncomplicated (without systemic symptoms) or Complicated (systemic symptoms)? @ -Complicated Side effects of treatment? @ -No Exacerbation, Progression, or Severe Exacerbation? @ -No Poses a threat to life or bodily function? How? (Chest pain, [place], [place], pneumonia, PE, COPD, DKA, ARF, appy, cholecystitis, CVA, Diverticulitis, Homicidal, Suicidal, threat to staff... and all critical care pts) @ -No (Miguel Contreras) Disposition <Sandra Herrera - Last Filed: 02/20/23 22:24> Is patient prescribed a controlled substance at d/c from ED?: No Time of Disposition: 23:48 <Miguel Contreras - Last Filed: 02/21/23 06:25> Clinical Impression: Rib contusion Disposition: HOME SELF-CARE Condition: Good Instructions (If sedation given, give patient instructions): How to Use an In centive Spirometer (ED), Rib Contusion (ED) Referrals: Khloe Belle, PAC [Primary Care Provider] - 1-2 days
[2023-02-20] MEDS ORDERED: LIDOCAINE 5% PATCH TOPICAL STA (23:50)
== END 2023-02-21 00:18 | disposition home or self-care (01) ==
LOC: EC 21:33
DX: S20.219A Contusion of unspecified front wall of thorax, initial encounter (principal); I10 Essential (primary) hypertension; Z87.891 Personal history of nicotine dependence; Z79.899 Other long term (current) drug therapy; W20.8XXA Other cause of strike by thrown, projected or falling object, initial encounter
CPT/HCPCS: 99283

== ENCOUNTER 2023-08-09 11:55 | Emergency (ER) | payer MEDICARE, OTHER ==
--- NOTE | 2023-08-09 12:08 | ED ---
General Adult HPI - General Source: patient, RN notes reviewed Mode of arrival: ambulatory Limitations: no limitations <Lonnie Srivastava - Last Filed: 08/09/23 12:07> - History of Present Illness Onset/Timin -: week(s) Location: right, upper extremity Radiation: non-radiation Quality: dull Consistency: intermittent Improves with: medication, other (ice) Worsens with: movement Associated Symptoms: denies other symptoms Treatments Prior to Arrival: none <Albert Thomas - Last Filed: 08/09/23 13:36> - General Stated complaint: Rt arm pain Time Seen by Provider: 08/09/23 12:07 - History of Present Illness Initial comments: 68-year-old male presents emergency Department chief complaint right wrist pain. Patient states hewent to move with [employer] a week ago states he felt something pop. He has had pain ever since he has been icing, taking ov [id number] medications (Lonnie Srivastava) - Related Data Home Medications Medication Instructions Recorded Confirmed Testosterone [Androgel 1.62% Gel 2 applic TOPICAL DAILY 07/25/21 07/25/21 Pump] Cyclobenzaprine [Flexeril] 10 mg PO TID PRN 08/09/23 08/09/23 Allergies Allergy/AdvReac Type Severity Reaction Status Date / Time No Known Allergies Allergy Verified 08/09/23 13:34 Review of Systems ROS Other: All systems not noted in ROS Statement are negative. <Lonnie Srivastava - Last Filed: 08/09/23 12:07> ROS Other: All systems not noted in ROS Statement are negative. Musculoskeletal: Reports: as per HPI, other Neurological: Denies: weakness, numbness, paresthesias <Albert Thomas - Last Filed: 08/09/23 13:36> ROS Statement: Those systems with pertinent positive or pertinent negative responses have been documented in the HPI. Past Medical History Past Medical History: Deep Vein Thrombosis (DVT), Hypertension, Osteoarthritis (OA), Pulmonary Embolus (PE) Additional Past Medical History / Comment(s): hx hiatal hernia,torn acl lt knee, KIDNEY STONES History of Any Multi-Drug Resistant Organisms: None Reported Past Surgical History: Joint Replacement, Orthopedic Surgery Additional Past Surgical History / Comment(s): 2 lt knee arthroscopy,rt knee arthroscopy,rt ankle took bone chip out,OR 5th digit lt hand fused bone together had pin in place-since removed,sinus, left knee replacement 07/29/16, deviated septum repair. fractured pelvis Past Anesthesia/Blood Transfusion Reactions: No Reported Reaction Additional Past Anesthesia/Blood Transfusion Reaction / Comment(s): no hx blood transfusion Past Psychological History: No Psychological Hx Reported Smoking Status: Former smoker Past Alcohol Use History: Occasional Past Drug Use History: None Reported - Past Family History Father Family Medical History: Cancer Additional Family Medical History / Comment(s): prostate ca,pacemaker Mother Family Medical History: CVA/TIA <Lonnie Srivastava - Last Filed: 08/09/23 12:07> General Exam <Lonnie Srivastava - Last Filed: 08/09/23 12:07> General appearance: alert, in no apparent distress Extremities exam: Present: normal inspection, full ROM, tenderness, normal capillary refill, other (There is mild tenderness over the flexors just proximal to the wrist along the ulnar aspect of the right forearm. There is no snuffbox tenderness.) Right Elbow exam: Present: normal inspection, full ROM. Absent: tenderness, swelling Forearm Wrist exam: Present: normal inspection, full ROM, tenderness. Absent: swelling, abrasion, laceration, ecchymosis, deformity, crepitus, dislocation, erythema, tenderness over anatomical snuff box, pain with axial thumb loading Hand Wrist exam: Present: normal inspection, full ROM, tenderness. Absent: s welling, abrasion, laceration, ecchymosis, deformity, crepitus, dislocation, erythema, amputation Neurosensory exam: Present: 2-point discrimination, radial nerve intact, ulnar nerve intact, median nerve intact Vascular: Present: normal capillary refill. Absent: vascular compromise Neurological exam: Absent: motor sensory deficit Skin exam: Present: warm, dry, intact, normal color. Absent: rash <Albert Thomas - Last Filed: 08/09/23 13:36> - General Exam Comments Initial Comments: Visual Physical Exam Vital signs reviewed General: Well-appearing, nontoxic, no acute distress. Head: Normocephalic, atraumatic Eyes: PERRLA, EOMI ENT: Airway patent Chest: Nonlabored breathing Skin: No visual rash, normal skin tone Neuro: Alert and oriented 3 Musculoskeletal: No gross abnormalities (Lonnie Srivastava) Course Vital Signs 12/27/23 12:54 Temperature 98 F Pulse Rate 84 Respiratory 18 Rate Blood Pressure 154/83 O2 Sat by Pulse 98 Oximetry Medical Decision Making <CarolaLonnie Moe - Last Filed: 08/09/23 12:07> <Albert Thomas - Last Filed: 08/09/23 13:36> - Medical Decision Making I completed the quick note portion of this chart signed Lonnie Srivastava PA-C (Lonnie Srivastava) The patient had right wrist x-rays which I interpreted as negative for fracture or dislocation. Was pt. sent in by a medical professional or institution (, PA, BOILING HOUSE OILER, urgent care, hospital, or correction...) When possible be specific @ -[No] Did you speak to anyone other than the patient for history (EMS, parent, family, police, friend...)? What history was obtained from this source @ -[No] Did you review nursing and triage notes (agree or disagree)? Why? @ -[I reviewed and agree with nursing and triage notes] Were old charts reviewed (outside hosp., previous admission, EMS record, old EKG, old radiological studies, urgent care reports/EKG's, correction records)? Report findings @ -[No old charts were reviewed] Differential Diagnosis (chest pain, altered mental status, abdominal pain women, abdominal pain men, vaginal bleeding, weakness, fever, dyspnea, syncope, headache, dizziness, GI bleed, back pain, seizure, CVA, palpatations, mental health, musculoskeletal)? @ -[Differential Musculoskeletal Muscular strain, contusion, ligament sprain, fracture, arthritis, septic arthritis, bursitis, cellulitis, muscle spasm, nerve compression, DVT, arterial occlusion, herpes zoster, electrolyte abnormality, tumor.... This is not meant to be in all inclusive list EKG interpreted by me (3pts min.). @ -[As above] X-rays interpreted by me (1pt min.). @ -[I interpreted as above CT interpreted by me (1pt min.). @ -[None done] U/S interpreted by me (1pt. min.). @ -[None done] What testing was considered but not performed or refused? (CT, X-rays, U/S, labs)? Why? @ -[None] What meds were considered but not given or refused? Why? @ -[None] Did you discuss the management of the patient with other professionals (professionals i.e. Dr., PA, BOILING HOUSE OILER, lab, RT, psych nurse, director social, college dean, teacher, toxics program officer, leather case finisher)? Give summary @ -[No] Was smoking cessation discussed for >3mins.? @ -[No] Was critical care preformed (if so, how long)? @ -[No] Were there social determinants of health that impacted care today? How? (Homelessness, low income, unemployed, alcoholism, drug addiction, transportation, low edu. Level, literacy, decrease access to med. care, retirement, rehab)? @ -[No] Was there de-escalation of care discussed even if they declined (Discuss DNR or withdrawal of care, Hospice)? DNR status @ -[No] What co-morbidities impacted this encounter? (DM, HTN, Smoking, COPD, CAD, Cancer, CVA, ARF, Chemo, Hep., AIDS, mental health diagnosis, sleep apnea, morbid obesity)? @ -[None] Was patient admitted / discharged? Hospital course, mention meds given and route, prescriptions, significant lab abnormalities, going to OR and other pertinent info. @ -[Patient is 68-year-old man with forearm/wrist injury. Discussed appropriate further care and follow-up as well as return parameters. Undiagnosed new problem with uncertain prognosis? @ -[No] Drug Therapy requiring intensive monitoring for toxicity (Heparin, Nitro, Insulin, Cardizem)? @ -[No] Were any procedures done? @ -[No] Diagnosis/symptom? @ -[Wrist sprain Forearm strain Acute, or Chronic, or Acute on Chronic? @ -[Acute Uncomplicated (without systemic symptoms) or Complicated (systemic symptoms)? @ -Uncomplicated Side effects of treatment? @ -[No] Exacerbation, Progression, or Severe Exacerbation? @ -[No] Poses a threat to life or bodily function? How? (Chest pain, [place], [place], pneumonia, PE, COPD, DKA, ARF, appy, cholecystitis, CVA, Diverticulitis, Homicidal, S uicidal, threat to staff... and all critical care pts) @ -[No] (Albert Thomas) Disposition <Lonnie Srivastava - Last Filed: 08/09/23 12:07> Is patient prescribed a controlled substance at d/c from ED?: No <Albert Thomas - Last Filed: 08/09/23 13:36> Clinical Impression: Strain of forearm, right, Right wrist sprain Disposition: HOME SELF-CARE Condition: Good Instructions (If sedation given, give patient instructions): Wrist Injury (ED) Referrals: Khloe Belle, PAC [Family Provider] - 1-2 days
--- NOTE | 2023-08-09 12:29 | XR ---
EXAMINATION TYPE: XR wrist complete RT DATE OF EXAM: 08/09/2023 12:16 PM CLINICAL INDICATION:Male, 68 years old with history of pain; COMPARISON: None TECHNIQUE: XR wrist complete RT; examined in the Frontal, navicular, lateral, and oblique. FINDINGS: Mild degeneration changes at the wrist with osteophyte formation. Lucency projecting of the scapholun ate interval with calcification seen on one view only. There is mild soft tissue swelling around the wrist. No additional evidence of fracture. IMPRESSION: Small osseous body near the scapholunate ligament. Consider further evaluation with MR arthrogram for evaluation of the scapholunate ligament.
[2023-08-09 13:05] VITALS: RESP 18
[2023-08-09 13:54] VITALS: BP 131/78; PULSE 67; TEMP 98.2
== END 2023-08-09 13:53 | disposition home or self-care (01) ==
LOC: EC 11:55
DX: S63.501A Unspecified sprain of right wrist, initial encounter (principal); I10 Essential (primary) hypertension; M19.90 Unspecified osteoarthritis, unspecified site; Z86.718 Personal history of other venous thrombosis and embolism; Z87.891 Personal history of nicotine dependence; Z79.899 Other long term (current) drug therapy; X50.0XXA Overexertion from strenuous movement or load, initial encounter
CPT/HCPCS: 99283

== ENCOUNTER 2024-01-02 14:36 | Emergency (ER) | payer MEDICARE, OTHER ==
--- NOTE | 2024-01-02 15:01 | ED ---
URI HPI - General Source: patient, RN notes reviewed Mode of arrival: ambulatory Limitations: no limitations <Joyce Marie - Last Filed: 01/02/24 15:00> - General Source: RN notes reviewed <Lena Gonzalez - Last Filed: 01/02/24 18:51> - General Chief Complaint: Upper Respiratory Infection Stated Complaint: SOB, chest pains, sore throat Time Seen by Provider: 01/02/24 15:00 - History of Present Illness Initial Comments: Quick Note: This is a 68-year-old male who presents to the emergency department for coughing, congestion, and fevers. Symptoms began 2 days ago. Cough is described as productive. He does report some shortness of breath and chest pain associated with this. (Joyce Marie) 68-year-old male presenting to the ER with chief complaint of cough x 1 week. Patient reports symptoms began as nasal congestion and sore throat and now have progressed to worsening productive cough with some shortness of breath, or wheezing, and associated chest pain with coughing. He reports subjective fevers at home that are reduced with ibuprofen. He is a non-smoker and denies any history of COPD or heart issues. (Lena Gonzalez) - Related Data Home Medications Medication Instructions Recorded Confirmed Testosterone [Androgel 1.62% Gel 2 applic TOPICAL DAILY 07/25/21 08/09/23 Pump] Apixaban [Eliquis] 5 mg PO DIRECTED 08/09/23 08/09/23 Cyclobenzaprine [Flexeril] 10 mg PO TID PRN 08/09/23 08/09/23 Previous Rx's Medication Instructions Recorded predniSONE [Deltasone] 40 mg PO DAILY 5 Days #10 tab 01/02/24 Allergies Allergy/AdvReac Type Severity Reaction Status Date / Time No Known Allergies Allergy Verified 08/09/23 13:34 Review of Systems ROS Other: All systems not noted in ROS Statement are negative. <Joyce Marie - Last Filed: 01/02/24 15:00> ROS Other: All systems not noted in ROS Statement are negative. <Lena Gonzalez - Last Filed: 01/02/24 18:51> ROS Statement: Those systems with pertinent positive or pertinent negative responses have been documented in the HPI. Past Medical History Past Medical History: Deep Vein Thrombosis (DVT), Hypertension, Osteoarthritis (OA), Pulmonary Embolus (PE) Additional Past Medical History / Comment(s): hx hiatal hernia,torn acl lt knee, KIDNEY STONES History of Any Multi-Drug Resistant Organisms: None Reported Past Surgical History: Joint Replacement, Orthopedic Surgery Additional Past Surgical History / Comment(s): 2 lt knee arthroscopy,rt knee arthroscopy,rt ankle took bone chip out,OR 5th digit lt hand fused bone together had pin in place-since removed,sinus, left knee replacement 07/29/16, deviated septum repair. fractured pelvis Past Anesthesia/Blood Transfusion Reactions: No Reported Reaction Additional Past Anesthesia/Blood Transfusion Reaction / Comment(s): no hx blood transfusion Past Psychological History: No Psychological Hx Reported Smoking Status: Former smoker Past Alcohol Use History: Occasional Past Drug Use History: None Reported - Past Family History Father Family Medical History: Cancer Additional Family Medical History / Comment(s): prostate ca,pacemaker Mother Family Medical History: CVA/TIA <Joyce Marie - Last Filed: 01/02/24 15:00> General Exam Limitations: no limitations <Joyce Marie - Last Filed: 01/02/24 15:00> General appearance: alert, in no apparent distress Head exam: Present: atraumatic, normocephalic, normal inspection Eye exam: Present: normal appearance, PERRL, EOMI. Absent: scleral icterus, conjunctival injection, periorbital swelling ENT exam: Present: normal exam, normal oropharynx, mucous membranes moist Neck exam: Present: normal inspection. Absent: tenderness, meningismus, lymphadenopathy Respiratory exam: Present: normal lung sounds bilaterally, wheezes (Mild bilateral expiratory wheezing in all lung heart bilaterally). Absent: respiratory distress, rales, rhonchi, stridor Cardiovascular Exam: Present: regular rate, normal rhythm, normal heart sounds. Absent: systolic murmur, diastolic murmur, rubs, gallop, clicks Extremities exam: Present: normal inspection, full ROM, normal capillary refill. Absent: tenderness, pedal edema, joint swelling, calf tenderness Neurological exam: Present: alert, oriented X3, CN II-XII intact Psychiatric exam: Present: normal affect, normal mood Skin exam: Present: warm, dry, intact, normal color. Absent: rash <Lena Gonzalez - Last Filed: 01/02/24 18:51> - General Exam Comments Initial Comments: Visual Physical Exam Vital signs reviewed General: Well-appearing, nontoxic, no acute distress. Head: Normocephalic, atraumatic Eyes: PERRLA, EOMI ENT: Airway patent Chest: Nonlabored breathing Skin: No visual rash, normal skin tone Neuro: Alert and oriented 3 Musculoskeletal: No gross abnormalities (Joyce Marie) Course Vital Signs 01/02/24 01/02/24 14:41 17:34 Temperature 98.9 F Pulse Rate 72 78 Respiratory 18 12 Rate Blood Pressure 148/80 150/82 O2 Sat by Pulse 97 97 Oximetry Medical Decision Making <Joyce Marie - Last Filed: 01/02/24 15:00> - Lab Data Result diagrams: 01/02/24 16:22 01/02/24 16:22 - EKG Data -: EKG Interpreted by Me <Lena Gonzalez - Last Filed: 01/02/24 18:51> - Medical Decision Making I performed the QuickNote portion of this chart. Signed Joyce Marie PA-C. (Joyce Marie) Was pt. sent in by a medical professional or institution (PIPE [employer]auer, FAMILY AND CONSUMER EDUCATION TEACHER, urgent care, hospital, or correction...) When possible be specific @ -No Did you speak to anyone other than the patient for history (EMS, parent, family, police, friend...)? What history was obtained from this source @ -No Did you review nursing and triage notes (agree or disagree)? Why? @ -I reviewed and agree with nursing and triage notes Were old charts reviewed (outside hosp., previous admission, EMS record, old EKG, old radiological studies, urgent care reports/EKG's, correction records)? Report findings @ -No old charts were reviewed Differential Diagnosis (chest pain, altered mental status, abdominal pain women, abdominal pain men, vaginal bleeding, weakness, fever, dyspnea, syncope, headache, dizziness, GI bleed, back pain, seizure, CVA, palpatations, mental health, musculoskeletal)? @ -Viral bronchitis, pneumonia, viral URI, ACS, pneumothorax EKG interpreted by me (3pts min.). @ -As above X-rays interpreted by me (1pt min.). @ -Chest x-ray revealed no acute process CT interpreted by me (1pt min.). @ -None done U/S interpreted by me (1pt. min.). @ -None done What testing was considered but not performed or refused? (CT, X-rays, U/S, lab s)? Why? @ -None What meds were considered but not given or refused? Why? @ -None Did you discuss the management of the patient with other professionals (professionals i.e. , PA, FAMILY AND CONSUMER EDUCATION TEACHER, lab, RT, psych nurse, psychologist social, dispatch associate, teacher, parole or probation officer, director of casework department)? Give summary @ -No Was smoking cessation discussed for >3mins.? @ -No Was critical care preformed (if so, how long)? @ -No Were there social determinants of health that impacted care today? How? (Homelessness, low income, unemployed, alcoholism, drug addiction, transportation, low edu. Level, literacy, decrease access to med. care, prison, rehab)? @ -No Was there de-escalation of care discussed even if they declined (Discuss DNR or withdrawal of care, Hospice)? DNR status @ -No What co-morbidities impacted this encounter? (DM, HTN, Smoking, COPD, CAD, Cancer, CVA, ARF, Chemo, Hep., AIDS, mental health diagnosis, sleep apnea, morbid obesity)? @ -None Was patient admitted / discharged? Hospital course, mention meds given and route, prescriptions, significant lab abnormalities, going to OR and other pertinent info. @ -Patient was discharged. Patient was seen and evaluated for cough x 1 week. Her vitals are stable, physical examination is remarkable for bilateral expiratory wheezing. Chest x-ray reveals no acute process, lab work unremarkable. EKG is unremarkable. Patient is diagnosed with acute bronchitis, supportive care discussed with patient. DuoNeb breathing treatment given. Prescribed prednisone. Strict alarm/return symptoms discussed with patient in detail and patient shows understanding and agrees to plan. Patient discharged in stable condition. Case discussed with Dr. Simpson. Undiagnosed new problem with uncertain prognosis? @ -No Drug Therapy requiring intensive monitoring for toxicity (Heparin, Nitro, Insulin, Cardizem)? @ -No Were any procedures done? @ -No Diagnosis/symptom? @ -Acute bronchitis Acute, or Chronic, or Acute on Chronic? @ -Acute Uncomplicated (without systemic symptoms) or Complicated (systemic symptoms)? @ -Uncomplicated Side effects of treatment? @ -No Exacerbation, Progression, or Severe Exacerbation? @ -No Poses a threat to life or bodily function? How? (Chest pain, [place], [place], pneumonia, PE, COPD, DKA, ARF, appy, cholecystitis, CVA, Diverticulitis, Homicidal, Suic idal, threat to staff... and all critical care pts) @ -No (Lena Gonzalez) - Lab Data Lab Results 01/02/24 01/02/24 01/02/24 Range/Units 16:22 16:22 16:22 WBC 3.7 L (3.8-10.6) k/uL RBC 4.76 (4.30-5.90) m/uL Hgb 14.5 (13.0-17.5) gm/dL Hct 43.2 (39.0-53.0) % MCV 90.7 (80.0-100.0) fL MCH 30.4 (25.0-35.0) pg MCHC 33.5 (31.0-37.0) g/dL RDW 13.0 (11.5-15.5) % Plt Count 179 (150-450) k/uL MPV 7.3 Neutrophils % 54 % Lymphocytes % 32 % Monocytes % 7 % Eosinophils % 4 % Basophils % 1 % Neutrophils # 2.0 (1.3-7.7) k/uL Lymphocytes # 1.2 (1.0-4.8) k/uL Monocytes # 0.3 (0-1.0) k/uL Eosinophils # 0.2 (0-0.7) k/uL Basophils # 0.0 (0-0.2) k/uL PT 10.1 (10.0-12.5) sec INR 0.9 (<1.2) APTT 25.5 (22.0-30.0) sec Sodium (137-145) mmol/L Potassium (3.5-5.1) mmol/L Chloride (98-107) mmol/L Carbon Dioxide (22-30) mmol/L Anion Gap mmol/L BUN (9-20) mg/dL Creatinine (0.66-1.25) mg/dL Est GFR (CKD-EPI)AfAm (>60 ml/min/1.73 sqM) Est GFR (CKD-EPI)NonAf (>60 ml/min/1.73 sqM) Glucose (74-99) mg/dL Calcium (8.4-10.2) mg/dL Magnesium (1.6-2.3) mg/dL Total Bilirubin (0.2-1.3) mg/dL AST (17-59) U/L ALT (4-49) U/L Alkaline Phosphatase (38-126) U/L Troponin I (0.000-0.034) ng/mL Total Protein (6.3-8.2) g/dL Albumin (3.5-5.0) g/dL Influenza Type A (PCR) Not Detected (Not Detectd) Influenza Type B (PCR) Not Detected (Not Detectd) RSV (PCR) Not Detected (Not Detectd) SARS-CoV-2 (PCR) Not Detected (Not Detectd) 01/02/24 01/02/24 Range/Units 16:22 16:22 WBC (3.8-10.6) k/uL RBC (4.30-5.90) m/uL Hgb (13.0-17.5) gm/dL Hct (39.0-53.0) % MCV (80.0-100.0) fL MCH (25.0-35.0) pg MCHC (31.0-37.0) g/dL RDW (11.5-15.5) % Plt Count (150-450) k/uL MPV Neutrophils % % Lymphocytes % % Monocytes % % Eosinophils % % Basophils % % Neutrophils # (1.3-7.7) k/uL Lymphocytes # (1.0-4.8) k/uL Monocytes # (0-1.0) k/uL Eosinophils # (0-0.7) k/uL Basophils # (0-0.2) k/uL PT (10.0-12.5) sec INR (<1.2) APTT (22.0-30.0) sec Sodium 138 (137-145) mmol/L Potassium 4.1 (3.5-5.1) mmol/L Chloride 108 H (98-107) mmol/L Carbon Dioxide 24 (22-30) mmol/L Anion Gap 6 mmol/L BUN 19 (9-20) mg/dL Creatinine 0.57 L (0.66-1.25) mg/dL Est GFR (CKD-EPI)AfAm >90 (>60 ml/min/1.73 sqM) Est GFR (CKD-EPI)NonAf >90 (>60 ml/min/1.73 sqM) Glucose 99 (74-99) mg/dL Calcium 8.9 (8.4-10.2) mg/dL Magnesium 2.2 (1.6-2.3) mg/dL Total Bilirubin 0.9 (0.2-1.3) mg/dL AST 30 (17-59) U/L ALT 27 (4-49) U/L Alkaline Phosphatase 84 (38-126) U/L Troponin I <0.012 (0.000-0.034) ng/mL Total Protein 6.9 (6.3-8.2) g/dL Albumin 4.2 (3.5-5.0) g/dL Influenza Type A (PCR) (Not Detectd) Influenza Type B (PCR) (Not Detectd) RSV (PCR) (Not Detectd) SARS-CoV-2 (PCR) (Not Detectd) - EKG Data EKG Comments: EKG reveals normal sinus rhythm with no ST changes. Ventricular rate 70 bpm, IA interval 154, QRS duration 85, QT/QTc 383/403 (Lena Gonzalez) Disposition <Joyce Marie - Last Filed: 01/02/24 15:00> Is patient prescribed a controlled substance at d/c from ED?: No Time of Disposition: 18:49 <Lena Gonzalez - Last Filed: 01/02/24 18:51> Clinical Impression: Acute bronchitis Disposition: HOME SELF-CARE Condition: Stable Instructions (If sedation given, give patient instructions): Acute Bronchitis (ED) Additional Instructions: Please return to the Emergency Department if symptoms worsen or any other concerns. Prescriptions: predniSONE [Deltasone] 40 mg PO DAILY 5 Days #10 tab Referrals: [facility] [Primary Care Provider] - 1-2 days
[2024-01-02 15:24] VITALS: TEMP 98.9
--- NOTE | 2024-01-02 16:39 | XR ---
EXAMINATION TYPE: XR chest 2V DATE OF EXAM: 01/02/2024 4:10 PM CLINICAL INDICATION:Male, 68 years old with history of productive cough; COMPARISON: Chest radiographs from 02/20/2023 TECHNIQUE: XR chest 2V Frontal and lateral views of the chest. FINDINGS: Lungs/Pleura: There is no evidence of pleural effusion, focal consolidation, or pneumothorax. Pulmonary vascularity: Unremarkable. Heart/mediastinum: Cardiomediastinal silhouette is unremarkable. Musculoskeletal: No acute osseous pathology. IMPRESSION: Chronic changes without acute pulmonary process. No significant change from prior.
[2024-01-02 16:59] LABS: INR 0.9 (<1.2); Partial Thromboplastin Time 25.5 sec (22.0-30.0); Prothrombin Time 10.1 sec (10.0-12.5)
[2024-01-02 17:00] LABS: Basophils % (A) 1 %; Eosinophils # (A) 0.2 k/uL (0-0.7); Eosinophils % (A) 4 %; HCT 43.2 % (39.0-53.0); HGB 14.5 gm/dL (13.0-17.5); Lymphocytes # (A) 1.2 k/uL (1.0-4.8); Lymphocytes % (A) 32 %; MCH 30.4 pg (25.0-35.0); MCHC 33.5 g/dL (31.0-37.0); MCV 90.7 fL (80.0-100.0); Mean Platelet Volume 7.3; Monocytes # (A) 0.3 k/uL (0-1.0); Monocytes % (A) 7 %; Neutrophils % (A) 54 %; Platelet Count 179 k/uL (150-450); RBC 4.76 m/uL (4.30-5.90); WBC 3.7 k/uL (3.8-10.6)
[2024-01-02 17:02] LABS: ALT 27 U/L (4-49); African American GFR (CKD) >90 (>60 ml/min/1.73 sqM); Albumin 4.2 g/dL (3.5-5.0); Anion Gap 6 mmol/L; Blood Urea Nitrogen 19 mg/dL (9-20); Calcium 8.9 mg/dL (8.4-10.2); Carbon Dioxide 24 mmol/L (22-30); Chloride 108 mmol/L (98-107); Glucose 99 mg/dL (74-99); Non-African American GFR(CKD) >90 (>60 ml/min/1.73 sqM); Sodium 138 mmol/L (137-145); Total Bilirubin 0.9 mg/dL (0.2-1.3); Total Protein 6.9 g/dL (6.3-8.2)
[2024-01-02 17:03] LABS: AST 30 U/L (17-59); Potassium 4.1 mmol/L (3.5-5.1)
[2024-01-02 17:04] LABS: Alkaline Phosphatase 84 U/L (38-126); Magnesium 2.2 mg/dL (1.6-2.3)
[2024-01-02] MEDS: IPRATROPIUM-ALBUTEROL 3 ML NEB INHALATION STA (18:53)
[2024-01-02 20:10] VITALS: BP 150/76; PULSE 80; RESP 20
== END 2024-01-02 19:35 | disposition home or self-care (01) ==
LOC: EC 14:36
DX: J20.9 Acute bronchitis, unspecified (principal); Z87.891 Personal history of nicotine dependence
CPT/HCPCS: 36415; 71046; 80053; 83735; 84484; 85025; 85610; 85730; 87636; 93005; 94640; 99285

== ENCOUNTER → 2025-02-19 | Outpatient (CLI) | payer MEDICARE, OTHER ==
--- NOTE | 2025-02-19 17:36 | MR ---
EXAMINATION TYPE: MR angio head wo/neck wo/w con DATE OF EXAM: 02/19/2025 5:00 PM COMPARISON: None. CLINICAL INDICATION: Male, 69 years old with history of R51.9 HEADACHE, UNSPECIFIED; PHH, Headaches, Technical: MRA brain: 2D and 3-D [id number] Axial with MIP and 3-D reconstruction. Performed on a separate w orkstation. MRA neck: Multiplanar, multi-sequence imaging as well as [id number] and phase was performed extra cranial vasculature of the neck. 3-D reformatted images and maximum intensity projection reformatted images were submitted for evaluation, these are performed on a separate workstation. IV Contrast: 12 cc Gadavist Findings: Vertebral arteries: The vertebral arteries are patent. Vertebral arteries are: Codominant. Basilar artery: The basilar artery is intact. The basilar artery bifurcation is normal. Internal Carotid arteries: The cervical, petrous, cavernous and supraclinoid segments are normal. MORELIA: Patent with no evidence of aneurysm. ACOM: Present without evidence of aneurysm. MCA: Patent with no evidence of aneurysm. MALTED MILK MIXER: Patent with no evidence of aneurysm. PCOM: Hypoplastic bilaterally. RIGHT CAROTID SYSTEM: The common carotid artery is patent. The carotid bifurcations demonstrates no e vidence for hemodynamically significant stenosis. The internal carotid artery is patent. LEFT CAROTID SYSTEM: The common carotid artery is patent. The carotid bifurcations demonstrates no e vidence for hemodynamically significant stenosis. The internal carotid artery is patent. The origins of the great vessels and vertebral arteries appear unremarkable. The right vertebral art caitlyn is dominant. IMPRESSION: 1. No evidence of intracranial aneurysm or significant stenosis. 2. 3. No evidence of significant stenosis at the carotid bifurcations. The carotid and vertebral arteri es are patent. 4. No evidence aneurysm. 5. [facility], , 02/19/2025 5:33 PM
== END | disposition home or self-care (01) ==
LOC: RADMRIMAIN 16:12
PROVIDERS: ATTEND Emergency Medicine
DX: R51.9 Headache, unspecified (principal)
CPT/HCPCS: 70544; 70549; A9585